=== PATIENT | female | born 1980 | race Caucasian/White ===

== ENCOUNTER 2021-05-15 12:06 | Outpatient (CLI) | payer OTHER, SELFPAY ==
[2021-05-15 13:48] LABS: Basophils Absolute Auto 0.06 K/mm3 (0.00-0.10); Basophils Percent Auto 0.9 % (0.0-1.0); Eosinophils Absolute Auto 0.33 K/mm3 (0.02-0.50); Eosinophils Percent Auto 4.9 % (1.0-6.0); Hematocrit 37.4 % (35.0-49.0); Hemoglobin 12.7 g/dL (12.0-15.0); Immature Granulocyte Absolute 0.04 K/mm3 (0.00-0.00); Immature Granulocyte Percent A 0.6 % (0.0-0.0); Lymphocytes Absolute Auto 2.14 K/mm3 (1.10-4.50); Lymphocytes Percent Auto 31.8 % (18.0-42.0); Mean Corpuscular Hemoglobin 33.2 pg (27.0-31.0); Mean Corpuscular Volume 97.7 fL (78.0-102.0); Mean Platelet Volume 9.4 fl (9.2-11.8); Monocytes Absolute Auto 0.54 K/mm3 (0.10-0.90); Neutrophils Absolute Auto 3.6 K/mm3 (1.7-7.2); Neutrophils Percent Auto 53.8 % (50.0-70.0); Platelet Count Result 292 K/mm3 (150-420); Red Blood Count 3.83 M/mm3 (4.20-5.40); Red Cell Distribution Width 13.2 % (11.6-14.4); White Blood Count 6.7 K/mm3 (4.8-10.8)
[2021-05-15 14:41] LABS: Alanine Aminotransferase 61 U/L (14-59); Albumin Level 4.3 g/dL (3.4-5.0); Alkaline Phosphatase 51 U/L (46-116); Anion Gap 14 mmol/L (8-16); Aspartate Amino Transferase 36 U/L (15-37); Bilirubin,Total 0.4 mg/dL (0.00-1.00); Blood Urea Nitrogen 19 mg/dL (7-18); Calcium 10.5 mg/dL (8.5-10.1); Carbon Dioxide 22 mmol/L (21-32); Chloride 105 mmol/L (98-108); Cholesterol 230 mg/dL (0-200); Estimated Glomerular Filt Rate > 60; Free T4 Free Thyroxine 0.77 ng/dL (0.76-1.46); Glucose 84 mg/dL (70-99); HDL Direct 46 mg/dL (40-60); LDL Cholesterol Calculated 135 mg/dL (<130); Osmolality Calculated 293 mOsm/kg (285-295); Potassium 4.3 mmol/L (3.5-5.1); Sodium 141 mmol/L (136-145); Total Protein 7.6 g/dL (6.4-8.2); Triglycerides 245 mg/dL (0-150)
[2021-05-16 16:25] LABS: Hemoglobin A1C 5.5 % (<5.7)
[2021-05-18 12:03] LABS: Vitamin D 25 Hydroxy 24 ng/mL (30-100)
== END 2021-05-15 12:07 | disposition home or self-care (01) ==
LOC: CHSLAB 12:12
PROVIDERS: PCP Nurse Practitioner Family; Visit Provider Nurse Practitioner Family
DX: Z00.00 Encounter for general adult medical examination without abnormal findings (principal); I10 Essential (primary) hypertension; R63.5 Abnormal weight gain; E78.5 Hyperlipidemia, unspecified; Z79.899 Other long term (current) drug therapy
CPT/HCPCS: 36415; 80053; 80061; 82306; 83036; 84439; 84443; 85025

== ENCOUNTER 2021-10-02 15:50 | Outpatient (CLI) | payer OTHER, SELFPAY ==
[2021-10-02 17:57] LABS: SARS-CoV-2 RNA PCR Positive (Negative)
== END 2021-10-02 15:51 | disposition home or self-care (01) ==
LOC: CHSLAB 15:54
PROVIDERS: PCP Nurse Practitioner Family; Visit Provider Nurse Practitioner Family
DX: U07.1 COVID-19 (principal)
CPT/HCPCS: C9803; U0003; U0005

== ENCOUNTER 2023-02-02 15:24 | Emergency (ER) | payer OTHER, SELFPAY ==
[2023-02-02] VITALS (7 sets, daily range): BP systolic 145–154; BP diastolic 69–97; PULSE 79–105; RESP 16–20; TEMP 35.8–36.3; O2SAT 92–98
--- NOTE | ~2023-02-02 | CT_ITS ---
EXAMINATION: CT abdomen pelvis w con DATE: 02/02/2023 17:34 INDICATION: Periumbilical pain. Nausea and vomiting. TECHNIQUE: Computed tomography (CT) of the abdomen and pelvis was performed with 100 mL Omnipaque 350 intravenous contrast. Automated exposure control and iterative reconstruction technique were employe d. The dose-length product was 1258.32 mGy-cm. COMPARISON: CT abdomen and pelvis 06/15/2017 FINDINGS: The visualized portions of the lung bases demonstrate mild atelectasis. No pleural effusion . The heart size is normal. No pericardial effusion. There is diffuse hepatic steatosis. There are ch anges of cholecystectomy. The spleen, pancreas, adrenal glands, and kidneys are normal. There is an i nfraumbilical ventral hernia containing small bowel. Small bowel is dilated proximal to the hernia. T here is an intrauterine device in expected position. There is prominent fat in the inguinal canals th at may be hernias. There are no pathologically enlarged lymph nodes. There is no free intraperitoneal fluid. There is mild thoracic and lumbar spondylosis. IMPRESSION: 1. Small bowel obstruction secondary to an infraumbilical ventral hernia. Reviewed, dictated and finalized at location E.
--- NOTE | 2023-02-02 15:41 | ED.GENADULT ---
HPI - General Adult General Chief complaint: Abdominal Pain Stated complaint: abdominal pain Time Seen by Provider: 02/02/23 15:33 History of Present Illness HPI narrative: This is a 42-year-old female presenting ED with a chief complaint of umbilical pain. Pain started late last night. It is a sharp pain in her belly button, nonradiating, 10 out 10 intensity and constant. She has never had pain like this before there are no alleviating or exacerbating factors. Patient has had multiple episodes of nausea and vomiting. Her last bowel movement was earlier today. Related Data Home Medications Medication Instructions Recorded Confirmed tizanidine 4 mg tablet 4 mg PO DAILY 02/02/23 02/02/23 Allergies Allergy/AdvReac Type Severity Reaction Status Date / Time No Known Allergies Allergy Verified 02/02/23 15:33 [facility] Past Medical History Medical History HTN (hypertension) Surgical History Surgical History History of cholecystectomy History of tonsillectomy Family History Family History Mother Diabetes mellitus Depression Anxiety Grandparent Cancer Social History Social History Smoking status: Former smoker Alcohol intake: current Substance use: never Living arrangements: with family Occupation/Education: occupation Additional occupation/education comments: [employer] Gender identity (if verbalized by the patient): Female Exam Narrative: APPEARANCE: No apparent distress. Head: atraumatic. EYES: EOMI, NOSE: Atraumatic NECK: Trachea midline RESPIRATORY: No increased rate of breathing CARDIOVASCULAR: RRR, ABDOMINAL: Abdomen is soft nontender no guarding rebound. There is a umbilical hernia that is firm/ tender to touch. No overlying skin changes. MUSCULOSKELETAl: No obvious deformities NEURO: Alert. Moving 4/4 extremities SKIN:: Warm, dry. Normal color PSYCHIATRIC: Normal affect Course Vital Signs Vital signs: Vital Signs Temperature 96.4 F L 02/02/23 15:24 Pulse Rate 105 H 02/02/23 15:24 Respiratory Rate 20 02/02/23 15:24 Blood Pressure 153/87 H 02/02/23 15:24 Pulse Oximetry 96 02/02/23 15:24 Oxygen Delivery Room Air 02/02/23 15:24 Temperature 96.4 F L 02/02/23 15:39 Pulse Rate 79 02/02/23 17:00 Respiratory Rate 16 02/02/23 17:00 Blood Pressure 154/97 H 02/02/23 17:00 Pulse Oximetry 98 02/02/23 17:00 Oxygen Delivery Room Air 02/02/23 17:00 Medical Decision Making MDM Narrative Medical decision making narrative: -Presentation: 42-year-old female presenting with umbilical pain. 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 -External Chart Review: Review of primary care office visits. -Hx from independent Sources: Fiance at bedside -Discussion of Management/Consultants: Milo Ford - Surgery, Naomi ACCOUNTING SYSTEM EXPERT - Hospitalist service -Independent interpretation of studies: WBC is 15. Lactic 2.1. Rest of labs were within normal limits. CT pelvis shows a loop of bowel within an umbilical hernia with evidence of small-bowel obstruction. -Procedures: NG tube inserted by MD. -Interventions: 2 L normal saline, 0.5 mg Dilaudid -> .5 mg dilaudid, 15 mg Toradol, Zosyn 3.75 mg -Shared decision making / Disposition: Patient will be transferred [facility] to be admitted under Dr. Minaya w/ a sx consult to Dr. Ford. Vital Signs Vital Signs: Vital Signs Temperature 96.4 F L 02/02/23 15:24 Pulse Rate 105 H 02/02/23 15:24 Respiratory Rate 20 02/02/23
[2023-02-02] MEDS: SODIUM CHLORIDE 0.9% IV 2,000 ML 999 ML IV CONT (15:56)
[2023-02-02] MEDS: KETOROLAC 15 MG/ML VIAL (*BKC) IV PUSH (15:58)
[2023-02-02] MEDS: HYDROmorphone HCL INJ (*CRX) 2 MG/ML VIAL 0.5 MG IV PUSH ×2 (15:58→18:38)
[2023-02-02] MEDS: ONDANSETRON INJ 4 MG/2 ML VIAL 8 MG IV PUSH (16:01)
[2023-02-02 16:59] LABS: Basophils Absolute Auto 0.06 K/mm3 (0.00-0.10); Basophils Percent Auto 0.4 % (0.0-1.0); Eosinophils Absolute Auto 0.03 K/mm3 (0.02-0.50); Eosinophils Percent Auto 0.2 % (1.0-6.0); Hematocrit 41.3 % (35.0-49.0); Hemoglobin 14.1 g/dL (12.0-15.0); Immature Granulocyte Percent A 0.6 % (0.0-0.0); Lymphocytes Absolute Auto 1.71 K/mm3 (1.10-4.50); Lymphocytes Percent Auto 10.9 % (18.0-42.0); Mean Corpuscular HGB Conc 34.1 g/dL (32.0-36.0); Mean Corpuscular Hemoglobin 33.7 pg (27.0-31.0); Mean Corpuscular Volume 98.6 fL (78.0-102.0); Mean Platelet Volume 9.9 fl (9.2-11.8); Monocytes Absolute Auto 0.99 K/mm3 (0.10-0.90); Monocytes Percent Auto 6.3 % (2.0-11.0); Neutrophils Absolute Auto 12.8 K/mm3 (1.7-7.2); Neutrophils Percent Auto 81.6 % (50.0-70.0); Platelet Count Result 312 K/mm3 (150-420); Red Blood Count 4.19 M/mm3 (4.20-5.40); Red Cell Distribution Width 14.1 % (11.6-14.4); White Blood Count 15.6 K/mm3 (4.8-10.8)
[2023-02-02 17:10] LABS: SPREG INTERNAL CONTROL Positive; Serum Qual hCG Negative
[2023-02-02 17:12] LABS: Partial Thromboplastin Time 27.7 SEC (23.90-30.70); Prothrombin Time 10.9 Seconds (9.50-12.10)
[2023-02-02 17:13] LABS: Alanine Aminotransferase 43 U/L (14-59); Albumin Level 4.1 g/dL (3.4-5.0); Alkaline Phosphatase 59 U/L (46-116); Anion Gap 10 mmol/L (8-16); Aspartate Amino Transferase 22 U/L (15-37); Bilirubin,Total 0.5 mg/dL (0.00-1.00); Blood Urea Nitrogen 10 mg/dL (7-18); Calcium 9.8 mg/dL (8.5-10.1); Carbon Dioxide 27 mmol/L (21-32); Chloride 103 mmol/L (98-108); Estimated Glomerular Filt Rate > 60; Glucose 106 mg/dL (70-99); Lipase 34 U/L (16-77); Osmolality Calculated 289 mOsm/kg (285-295); Potassium 4.1 mmol/L (3.5-5.1); Sodium 140 mmol/L (136-145); Total Protein 7.6 g/dL (6.4-8.2)
[2023-02-02 17:16] LABS: Lactic Acid Reflex 2.1 mmol/L (0.4-2.0)
[2023-02-02] MEDS: LIDO 1%/EPINEPHRINE 1:100,000 20 ML VIAL 10 ML INFILTRATE (18:23)
== END 2023-02-02 18:59 | disposition short-term general hospital (02) ==
PROVIDERS: Emergency Provider Emergency Medicine; PCP Nurse Practitioner Family
DX: K56.609 Unspecified intestinal obstruction, unspecified as to partial versus complete obstruction (principal); K42.0 Umbilical hernia with obstruction, without gangrene; I10 Essential (primary) hypertension; Z87.891 Personal history of nicotine dependence
CPT/HCPCS: 36415; 74177; 80053; 83605; 83690; 84703; 85025; 85610; 85730; 96361; 96365; 96375; 96376; 99285; J1170; J1885; J2405; J2543; J7030; Q9967

== ENCOUNTER 2023-02-02 19:41 | Inpatient (IN) | payer OTHER, SELFPAY ==
--- NOTE | ~2023-02-02 | XR_ITS ---
. EXAMINATION: XR abdomen/kub 1V DATE: 02/03/2023 18:26 INDICATION: Nasogastric tube placement. TECHNIQUE: A semiupright view of the abdomen was obtained. COMPARISON: CT abdomen and pelvis 02/02/2023 FINDINGS: The lower abdomen is excluded. There are dilated loops of small bowel. The nasogastric tube tip is in the stomach. Surgical clips in the right upper quadrant are likely from cholecystectomy. IMPRESSION: 1. Nasogastric tube tip in the stomach. 2. Dilated small bowel, likely postoperative adynamic ileus. Reviewed, dictated and finalized at location A.
--- NOTE | ~2023-02-02 | XR_ITS ---
EXAMINATION: XR abdomen NG/feed tube insert DATE: 02/02/2023 21:14 INDICATION: Nasogastric tube placement. TECHNIQUE: A semiupright view of the abdomen was obtained. COMPARISON: CT abdomen and pelvis 02/02/2023 FINDINGS: The lower abdomen is excluded. Surgical clips in the right upper quadrant are likely from c holecystectomy. The nasogastric tube tip is in the stomach. IMPRESSION: 1. Nasogastric tube tip in the stomach. Reviewed, dictated and finalized at location A.
--- NOTE | ~2023-02-02 | XR_ITS ---
EXAMINATION: XR abdomen NG/feed tube insert DATE: 02/03/2023 15:44 INDICATION: Nasogastric tube placement. TECHNIQUE: An upright view of the abdomen was obtained. COMPARISON: CT abdomen and pelvis 02/02/2023 FINDINGS: The lower abdomen is excluded. Surgical clips in the right upper quadrant are likely from c holecystectomy. There is dilated small bowel in left abdomen. The nasogastric tube tip is in the stom ach with proximal side port in the distal esophagus. IMPRESSION: 1. Nasogastric tube tip in the stomach with proximal side port in the distal esophagus. Advancement 8 cm recommended. 2. Dilated small bowel, likely postoperative adynamic ileus. Reviewed, dictated and finalized at location A. IMPRESSION: 1. Nasogastric tube tip in the stomach with proximal side port in the distal es ophagus. Advancement 8 cm recommended. 2. Dilated small bowel, likely postoperative adynamic ileus.
--- NOTE | 2023-02-02 19:40 | ADMGEN ---
This patient, Malu De La Rosa, was admitted to Medical Room 252-01. Patient/family oriented to hospital policies and general routines including ID bracelet, bed and alarms, visiting hours, pain management, procedures, bathroom and other care routines, personal items, smoking policy, room service/diet, and visiting hours. Information on how to activate the Rapid Response Team has been discussed. Patient/Family are encouraged to report perceived risks to care and to ask questions if they do not understand what they are told or what they should do.
[2023-02-02] MEDS: HYDROmorphone HCL INJ (*CRX) 1 MG/ML SYR 0.5 MG IV PUSH (21:27)
[2023-02-02 23:21] VITALS: BP 164/89; PULSE 91; RESP 18; TEMP 36.3; O2SAT 96
[2023-02-02 23:22] VITALS: BMI 38.5
[2023-02-03] VITALS (13 sets, daily range): BP systolic 129–163; BP diastolic 65–98; PULSE 84–105; RESP 12–16; TEMP 36.4–37.1; O2SAT 91–98
[2023-02-03] MEDS: HYDROmorphone HCL INJ (*CRX) 1 MG/ML SYR IV PUSH ×3 (00:20→06:54)
--- NOTE | 2023-02-03 01:15 | PM.IMHP ---
H&P: HPI History of Present Illness Date/Time: 02/02/23 23:45 Chief Complaint: Incarcerated hernia. Narrative: This is a very pleasant 42-year-old female with hypertension, hyperlipidemia, GERD, sleep apnea, and anxiety who [place] directly [place] [facility] [place] after she was found to have an incarcerated hernia. Yesterday afternoon she developed sudden pain in the periumbilical region that she describes as sharp and shooting in nature. The pain was intense at the outset, rated 10/10, and it has been pretty continuous since that time. The pain does not radiate and she gives no aggravating or alleviating factors. Associated symptoms include severe nausea and several episodes of emesis. Her last normal bowel movement was yesterday a.m.. Workup in the emergency department was significant for a WBC count of 15.6 and lactic acid 2.1. CT of the abdomen and pelvis showed a small-bowel obstruction secondary to an infraumbilical ventral hernia. An NG tube has been inserted for decompression and she has been admitted for pain control and surgery consultation tomorrow. Currently she is feeling better after receiving Dilaudid. Review of Systems Review of Systems: Twelve systems were reviewed and are negative except for as per HPI. [facility] Past Medical History Medical History Anxiety Hypertension Obstructive sleep apnea Surgical History Surgical History History of cholecystectomy History of foot surgery Removal bone spur. History of tonsillectomy Family History Family History Mother Diabetes mellitus Anxiety Depression Arthritis Grandparent Cancer Father Stomach cancer Social History Social History (Updated 02/03/23 @ 23:53 by Naomi Bañuelos PA-C) Social History: Surrogate medical decision maker: Cecilio Martinez significant other. Code status: Full code. Smoking status: Current some day smoker Tobacco type: cigarettes Alcohol intake: current Drinks per week: 8 Substance use: never Lack of Transportation: No Lack of Food: Never True Current Housing: I Have Housing Concerned About Future Housing: No Difficulty Paying Gas/Electric Bills: No Difficulty Paying for Meds: No Currently Unemployed: No Education: Trade/Vocational Certificate Difficulty w/ Childcare or Family Care: No Living arrangements: with family Occupation/Education: occupation Additional occupation/education comments: [employer] Spiritual care concerns: No Meds Home Medications and Allergies Home Medications Medication Instructions Recorded Confirmed Type pravastatin 80 mg tablet 80 mg PO DAILY #90 tabs 09/18/22 02/02/23 Rx amlodipine 5 mg tablet 5 mg PO DAILY #90 tabs 11/13/22 02/02/23 Rx clindamycin phosphate 1 % topical 1 applic topical DAILY 02/02/23 02/02/23 History solution lisinopril 20 1 tablet PO DAILY 02/02/23 02/02/23 History mg-hydrochlorothiazide 25 mg tablet omeprazole 20 mg capsule,delayed 20 mg PO DAILY 02/02/23 02/02/23 History release tizanidine 4 mg tablet 4 mg PO HS 02/02/23 02/02/23 History venlafaxine 150 mg 150 mg PO DAILY 02/02/23 02/02/23 History capsule,extended release 24 hr Allergies Allergy/AdvReac Type Severity Reaction Status Date / Time No Known Allergies Allergy Verified 02/02/23 15:33 Vital Signs Vital Signs - 24 hr 02/02/23 22:52 02/02/23 23:21 Temperature 97.3 F L Pulse Rate 91 Respiratory Rate 18 Blood Pressure 164/89 H Pulse Oximetry 96 Oxygen Delivery Room Air Exam Narrative: General: Moderately ill-appearing female in the semi-Pop position in bed. Weight: 95.5 kg. BMI: 38.5. HEENT: Normocephalic, atraumatic. PERRL, EOMI. Sclera anicteric. Conjuncti
[2023-02-03] MEDS: SODIUM CHLORIDE 0.9% IV 1,000 ML 100 ML IV CONT ×2 (03:35→16:33)
--- NOTE | 2023-02-03 07:07 | PM.CNGS ---
Assessment and Plan Assessment and plan (1) Incarcerated ventral hernia: Code(s): K43.6 - Other and unspecified ventral hernia with obstruction, without gangrene Status: Acute Assessment and Plan: Plan to proceed with urgent repair today. Discussed procedure with patient, risks, and benefits. Length of stay discussed and recovery. All questions answered. She agrees to go ahead. (2) Small bowel obstruction: Code(s): K56.609 - Unspecified intestinal obstruction, unspecified as to partial versus complete obstruction Status: Acute Assessment and Plan: May require bowel resection if incarcerated bowel is infarcted. Explained to patient. (3) Morbid obesity due to excess calories: Code(s): E66.01 - Morbid (severe) obesity due to excess calories Status: Chronic (4) Obstructive sleep apnea: Code(s): G47.33 - Obstructive sleep apnea (adult) (pediatric) Status: Chronic Assessment and Plan: uses CPAP at home (5) Smoker: Code(s): F17.200 - Nicotine dependence, unspecified, uncomplicated Status: Chronic Assessment and Plan: about 5 packs per week. History of Present Illness Consult details Consult date: 02/03/23 Reason for consult: hernia Requesting physician: Hugo Gonzalez MD Narrative: Patient is a 42 yo woman who developed periumbilical pain associated with nausea and vomitting Saturday afternoon, 2 days ago. She came to the ER at [facility] yesterday afternoon. She was noted to have an incarcerated umbilical hernia. CT showed small bowel incarceration and sbo. She had an NG placed and was started on IV antibiotics. She transferred here early this morning and is seen now for incarcerated umbilical hernia with small bowel obstruction. She is morbidly obese and is a smoker. She also has obstructive sleep apnea and hypertension. She has had a previous laparoscopic cholecystectomy. Review of Systems Review of Systems: All systems reviewed & are unremarkable except as noted in HPI and below (HPI and those items noted below) Constitutional: Constitutional: Denies chills and Denies fever(s) Cardiovascular: Cardiovascular: Denies chest pain, Denies diaphoresis, Denies dyspnea and Denies paroxysmal nocturnal dyspnea Respiratory: Respiratory: Denies chest congestion, Denies cough and Denies dyspnea Integumentary/Breasts: Skin/Breast: Denies lesions and Denies rash PMFSH Past Medical History Medical History Anxiety Hypertension Obstructive sleep apnea Surgical History Surgical History History of cholecystectomy History of foot surgery Removal bone spur. History of tonsillectomy Family History Family History Mother Diabetes mellitus Anxiety Depression Arthritis Grandparent Cancer Father Stomach cancer Social History Social History Social History: Surrogate medical decision maker: Code status: Full code. Smoking status: Current some day smoker Tobacco type: cigarettes Alcohol intake: current Drinks per week: 8 Substance use: never Lack of Transportation: No Lack of Food: Never True Current Housing: I Have Housing Concerned About Future Housing: No Difficulty Paying Gas/Electric Bills: No Difficulty Paying for Meds: No Currently Unemployed: No Education: Trade/Vocational Certificate Difficulty w/ Childcare or Family Care: No Living arrangements: with family Occupation/Education: occupation Additional occupation/education comments: [employer] Spiritual care concerns: No Meds Home Medications and Allergies Home Medications Medication Instructions Recorded Confirmed Type pravastatin 80 mg tablet 80 mg PO DAILY #90 tabs 09/18/22 02/02/23 Rx amlodipine 5 mg tablet 5 mg
--- NOTE | 2023-02-03 07:34 | P.PNIM_ITS ---
Progress Note: A&P Assessment and Plan (1) Small bowel obstruction: Code(s): K56.609 - Unspecified intestinal obstruction, unspecified as to partial versus complete obstruction Status: Acute Assessment and Plan: * CT of the abd/pel small bowel obstruction secondary to an infraumbilical ventral hernia * General surgery consulted * Surgical repair planned of today * Pain medications on board * NG in place draining a brown fluid, trend output * Zofran for nausea * NPO for now * Lactic acid 2.1 * IV fluids continued (2) Incarcerated ventral hernia: Code(s): K43.6 - Other and unspecified ventral hernia with obstruction, without gangrene Status: Acute Assessment and Plan: * Plan is as detailed above. (3) Hypertension: Qualifiers: Hypertension type: primary hypertension Qualified Code(s): I10 - Essential (primary) hypertension Code(s): I10 - Essential (primary) hypertension Status: Acute Assessment and Plan: * BP is currently 135/85 * Most likely related to pain and disease process * Lisinopril-HCTZ and amlodipine on hold * Restart home medications when able * Hydralazine PRN with parameters * Trend BP * Adjust therapy as indicated (4) Morbid obesity due to excess calories: Code(s): E66.01 - Morbid (severe) obesity due to excess calories Status: Chronic Assessment and Plan: * BMI is 38.5 * Consider a brewer helper consult when able to eat * Life style changes (5) Obstructive sleep apnea: Code(s): G47.33 - Obstructive sleep apnea (adult) (pediatric) Status: Chronic Assessment and Plan: * Continue home therapy as indicated (6) Tobacco abuse: Code(s): Z72.0 - Tobacco use Status: Acute Assessment and Plan: * Nicotine patch ordered * Smoking cessation education when patient is more able to pay attention Time Spent With Patient Time: 38 minutes Time with patient: Greater than 35 minutes Subjective Date/time seen: 02/03/23 07:34 Interval history: 02/03/23733 patient is lying in bed with significant abdominal pain. She is currently splinting her abdomen with a pillow and does not really let it go. She is having quite a bit of nausea however has not vomited since the NG tube is in place. NG tube has drained out quite a bit of brown bile. She stated that her pain is mostly generalized her abdomen. She denies any current chest pain, shortness a breath, diarrhea, lightheadedness or dizziness. She did state that she has not had a bowel movement recently. 02/02/23? 23:45 This is a very pleasant 42-year-old female with hypertension, hyperlipidemia, GERD, sleep apnea, and anxiety who [place] directly [place] [facility] [place] management after she was found to have an incarcerated hernia. Yesterday afternoon she developed sudden pain in the periumbilical region that she describes as sharp and shooting in nature. The pain was intense at the outset, rated 10/10, and it has been pretty continuous since that time. The pain does not radiate and she gives no aggravating or alleviating factors. Associated symptoms include severe nausea and several episodes of emesis. Her last normal bowel movement was yesterday a.m.. Workup in the emergency d
--- NOTE | 2023-02-03 07:34 | PM.IMPN ---
Progress Note: A&P Assessment and Plan (1) Small bowel obstruction: Code(s): K56.609 - Unspecified intestinal obstruction, unspecified as to partial versus complete obstruction Status: Acute Assessment and Plan: CT of the abd/pel small bowel obstruction secondary to an infraumbilical ventral hernia General surgery consulted Surgical repair planned of today Pain medications on board NG in place draining a brown fluid, trend output Zofran for nausea NPO for now Lactic acid 2.1 IV fluids continued (2) Incarcerated ventral hernia: Code(s): K43.6 - Other and unspecified ventral hernia with obstruction, without gangrene Status: Acute Assessment and Plan: Plan is as detailed above. (3) Hypertension: Qualifiers: Hypertension type: primary hypertension Qualified Code(s): I10 - Essential (primary) hypertension Code(s): I10 - Essential (primary) hypertension Status: Acute Assessment and Plan: BP is currently 135/85 Most likely related to pain and disease process Lisinopril-HCTZ and amlodipine on hold Restart home medications when able Hydralazine PRN with parameters Trend BP Adjust therapy as indicated (4) Morbid obesity due to excess calories: Code(s): E66.01 - Morbid (severe) obesity due to excess calories Status: Chronic Assessment and Plan: BMI is 38.5 Consider a vp sales consult when able to eat Life style changes (5) Obstructive sleep apnea: Code(s): G47.33 - Obstructive sleep apnea (adult) (pediatric) Status: Chronic Assessment and Plan: Continue home therapy as indicated (6) Tobacco abuse: Code(s): Z72.0 - Tobacco use Status: Acute Assessment and Plan: Nicotine patch ordered Smoking cessation education when patient is more able to pay attention Time Spent With Patient Time: 38 minutes Time with patient: Greater than 35 minutes Subjective Date/time seen: 02/03/23 07:34 Interval history: 02/03/23 0734 patient is lying in bed with significant abdominal pain. She is currently splinting her abdomen with a pillow and does not really let it go. She is having quite a bit of nausea however has not vomited since the NG tube is in place. NG tube has drained out quite a bit of brown bile. She stated that her pain is mostly generalized her abdomen. She denies any current chest pain, shortness a breath, diarrhea, lightheadedness or dizziness. She did state that she has not had a bowel movement recently. 02/02/23? 23:45 This is a very pleasant 42-year-old female with hypertension, hyperlipidemia, GERD, sleep apnea, and anxiety who is being directly admitted to the medical floor from the [facility] emergency department for further management after she was found to have an incarcerated hernia. Yesterday afternoon she developed sudden pain in the periumbilical region that she describes as sharp and shooting in nature. The pain was intense at the outset, rated 10/10, and it has been pretty continuous since that time. The pain does not radiate and she gives no aggravating or alleviating factors. Associated symptoms include severe nausea and several episodes of emesis. Her last normal bowel movement was yesterday a.m.. Workup in the emergency department was significant for a WBC count of 15.6 and lactic acid 2.1. CT of the abdomen and pelvis showed a small-bowel obstruction secondary to an infraumbilical ventral hernia. An NG tube has been inserted for decompression and she has been admitted for pain control and surgery consultation tomorrow. Currently she is feeling better after receiving dilaudid. Review of Systems Review of Systems: All systems reviewed & are unremarkable except as noted in HPI and below Exam Narrative: General: well-nourished, ill-appearing 42-y
[2023-02-03] MEDS: PANTOPRAZOLE SODIUM IV 40 MG VIAL IV PUSH (08:01)
[2023-02-03] MEDS: ONDANSETRON INJ 4 MG/2 ML VIAL IV PUSH (08:01)
--- NOTE | 2023-02-03 09:39 | P.PNAN_ITS ---
Anes - Eval Pre Procedure Procedure: Operation Date: 02/03/23 10:00 Proposed Procedures p Ventral Incisional Hernia Repair - Uriel Ford MD Date/Time: 02/03/23 09:39 Surgeon: Logan Preop Diagnosis: Small bowel obstruction Pre Op Diagnosis: Hernia, small bowel obstruction Patient Data Age: 42 Gender: F Height: 1.57 m Weight: 95.5 kg Last Vital Signs Temp 36.5 C 02/03/23 06:00 Pulse 98 02/03/23 06:00 Resp 16 02/03/23 06:00 BP 138/85 02/03/23 06:00 Pulse Ox 91 02/03/23 06:00 O2 Del Method Room Air 02/02/23 22:52 Allergies Allergy/AdvReac Type Severity Reaction Status Date / Time No Known Allergies Allergy Verified 02/02/23 15:33 Home Medications Medication Instructions Recorded Confirmed Type pravastatin 80 mg tablet 80 mg PO DAILY #90 tabs 09/18/22 02/02/23 Rx amlodipine 5 mg tablet 5 mg PO DAILY #90 tabs 11/13/22 02/02/23 Rx clindamycin phosphate 1 % topical 1 applic topical DAILY 02/02/23 02/02/23 History solution lisinopril 20 1 tablet PO DAILY 02/02/23 02/02/23 History mg-hydrochlorothiazide 25 mg tablet omeprazole 20 mg capsule,delayed 20 mg PO DAILY 02/02/23 02/02/23 History release tizanidine 4 mg tablet 4 mg PO HS 02/02/23 02/02/23 History venlafaxine 150 mg 150 mg PO DAILY 02/02/23 02/02/23 History capsule,extended release 24 hr : patient denies HCG: negative Patient hx anesthesia problems: none Family hx anesthesia problems: none Results Review: All pre-operative results and documents have been reviewed as part of the pre- operative evaluation. [facility] Past Medical History Medical History Anxiety Hypertension Obstructive sleep apnea Surgical History Surgical History History of cholecystectomy History of foot surgery Removal bone spur. History of tonsillectomy Family History Family History Mother Diabetes mellitus Anxiety Depression Arthritis Grandparent Cancer Father Stomach cancer Social History Social History Social History: Surrogate medical decision maker: Code status: Full code. Smoking status: Current some day smoker Tobacco type: cigarettes Alcohol intake: current Drinks per week: 8 Substance use: never Lack of Transportation: No Lack of Food: Never True Current Housing: I Have Housing Concerned About Future Housing: No Difficulty Paying Gas/Electric Bills: No Difficulty Paying for Meds: No Currently Unemployed: No Education: Trade/Vocational Certificate Difficulty w/ Childcare or Family Care: No Living arrangements: with family Occupation/Education: occupation Additional occupation/education comments: [employer] Spiritual care concerns: No Exam Day of Procedure 02/03/23 09:39 Patient weight: obese Heart: regular rate and rhythm Lungs: normal air movement Airway: Mallampati scale class II Neurological: alert and oriented
--- NOTE | 2023-02-03 09:46 | WPDHPUPDATE1 ---
History and Physical Update Update Date/Time: 02/03/23 09:46 History and Physical has been reviewed, including an updated exam of the patient. There are NO changes in the patient's condition. Risks, benefits, and alternatives have been discussed and questions answered. Patient agrees to proceed with procedure.
[2023-02-03] MEDS: ceFAZolin 2 GM/D5W 50 ML 2 GM/50 ML BAG IVPB (09:52)
[2023-02-03] MEDS: LACTATED RINGERS 1,000 ML 30 ML IV CONT ×2 (09:52→11:28)
--- NOTE | 2023-02-03 10:05 | WPDANESEPPF ---
Anes - Initial Pre Proc Eval Procedure: Operation Date: 02/03/23 10:00 Proposed Procedures p Ventral Incisional Hernia Repair - Uriel Ford MD Date/Time: 02/03/23 10:05 Surgeon: Severo Minaya MD Pre Op Diagnosis: Hernia, small bowel obstruction Patient Data Age: 42 Gender: F Height: 1.57 m Weight: 95.5 kg Last Vital Signs Temp 36.5 C 02/03/23 06:00 Pulse 98 02/03/23 06:00 Resp 16 02/03/23 06:00 BP 138/85 02/03/23 06:00 Pulse Ox 91 02/03/23 06:00 O2 Del Method Room Air 02/02/23 22:52 Allergies Allergy/AdvReac Type Severity Reaction Status Date / Time No Known Allergies Allergy Verified 02/02/23 15:33 Home Medications Medication Instructions Recorded Confirmed Type pravastatin 80 mg tablet 80 mg PO DAILY #90 tabs 09/18/22 02/02/23 Rx amlodipine 5 mg tablet 5 mg PO DAILY #90 tabs 11/13/22 02/02/23 Rx clindamycin phosphate 1 % topical 1 applic topical DAILY 02/02/23 02/02/23 History solution lisinopril 20 1 tablet PO DAILY 02/02/23 02/02/23 History mg-hydrochlorothiazide 25 mg tablet omeprazole 20 mg capsule,delayed 20 mg PO DAILY 02/02/23 02/02/23 History release tizanidine 4 mg tablet 4 mg PO HS 02/02/23 02/02/23 History venlafaxine 150 mg 150 mg PO DAILY 02/02/23 02/02/23 History capsule,extended release 24 hr : patient denies HCG: negative Patient hx anesthesia problems: none Family hx anesthesia problems: none Results Review: All pre-operative results and documents have been reviewed as part of the pre-operative evaluation. [facility] Past Medical History Medical History Anxiety Hypertension Obstructive sleep apnea Surgical History Surgical History History of cholecystectomy History of foot surgery Removal bone spur. History of tonsillectomy Family History Family History Mother Diabetes mellitus Anxiety Depression Arthritis Grandparent Cancer Father Stomach cancer Social History Social History Social History: Surrogate medical decision maker: Code status: Full code. Smoking status: Current some day smoker Tobacco type: cigarettes Alcohol intake: current Drinks per week: 8 Substance use: never Lack of Transportation: No Lack of Food: Never True Current Housing: I Have Housing Concerned About Future Housing: No Difficulty Paying Gas/Electric Bills: No Difficulty Paying for Meds: No Currently Unemployed: No Education: Trade/Vocational Certificate Difficulty w/ Childcare or Family Care: No Living arrangements: with family Occupation/Education: occupation Additional occupation/education comments: [employer] Spiritual care concerns: No Anes - Eval Final PreProcedure Day of Procedure 02/03/23 10:05 Patient weight: obese Heart: regular rate and rhythm Lungs: decreased breath sounds Airway: Mallampati scale class III Neurological: alert and oriented Last oral intake: >/= 8 hours ASA classification: III Emergent: no Anesthetic plan: proceed Anesthesia type and monitoring: general ETT and standard monitoring Results Review: All pre-operative results and documents have been reviewed as part of the pre-operative evaluation. Informed Consent: The patient's anesthetic plan and its attendant risks and benefits were discussed with the patient/family/POA. Questions were solicited and answers provided to the satisfaction of the patient/family/POA.
[2023-02-03] MEDS: BUPIVACAINE/EPINEPHRINE 0.5% 50 ML VIAL 10 ML INFILTRATE (10:22)
--- NOTE | 2023-02-03 12:32 | W.PM.PROC2 ---
Procedure Note - Detailed Date of Procedure 02/03/23 Pre-op Diagnosis Incarcerated ventral hernia, small bowel obstruction Post-op Diagnosis Other (Incarcerated ventral hernia, small-bowel obstruction with infarction) Procedure Performed Repair 2 cm ventral hernia, small bowel resection with anastomosis Surgeon Uriel Ford MD Licensed Physical Therapist Assistant Kay Mcdonald [facility] Anesthesia General and Local Indications Patient began having abdominal pain at the umbilicus on Saturday. She came to the emergency room in [place] yesterday afternoon. She was found to have a tender umbilical mass. CT scan showed incarcerated ventral hernia just below the umbilicus with small bowel obstruction. She transferred here early this morning. She continues to have pain and tenderness with infraumbilical mass. She is taken to surgery now for repair of the incarcerated hernia and possibly small-bowel resection Findings Patient had about a 2 cm defect but the incarcerated small bowel was already infarcted. About a 6-8 inch segment of small bowel was resected. The infarcted segment was about 4 in in length. Stapled side to side but functional end to end anastomosis was performed. Description of Procedure Patient was taken to surgery and induced into general anesthesia. Kumari catheter was placed. The abdomen was prepped and draped. A midline incision above and below the umbilicus was marked on the skin. 0.5% Marcaine with epinephrine was infiltrated into the area of the anticipated incision. Incision was made dissection was carried down through the subcutaneous. The incarcerated hernia was easily found in the subcutaneous. We opened the subcutaneous down to the fascia the length of the incision. We then dissected the incarcerated hernia sac free from the subcutaneous. We undermined and divided the subcutaneous leading to the fascial defect. It was extremely tight and there was no ability to open the fascia at the site of the hernia. I opened the abdominal wall fascia in the midline just above the umbilicus and then connected this is age in down to the area of the hernia. Once the fascia was divided opening the hernia further, we were able to then manipulate the hernia sac and its contents. The sac was opened and obviously infarcted small bowel was found. The hernia sac itself was excised at its neck circumferentially and sent to pathology as incarcerated hernia sac. I then had to open the incision farther both caudad and cephalad to allow resection of the infarcted small intestine. After this was done, I was able to mobilize the intestine so that resection could be safely performed. The cautery was used to divide the small bowel mesentery in the area of the infarcted small intestine. Cautery was used for hemostasis as well. I then used a TLC 55 stapler and divided the proximal and distal end of the involved small intestine. Small intestine was passed off as a specimen labeled small intestinal infarction. Additional cautery was required to gain hemostasis of the small bowel mesentery. I then placed the 2 small bowel ends in [id number] fashion. The TLC 55 stapler was again used and a [id number] but functional end-to-end anastomosis was created. I then used the linear stapler 60 to close the enteroenterostomy. Cautery was used to achieve hemostasis of the staple lines. A 4-0 silk suture was used to buttress the crotch of the anastomosis. I then used 4-0 silk to close the mesenteric defect. All looked good with healthy bowel under no tension. The involved bowel was then placed back in the abdominal cavity. The omentum was positioned anteriorly over the small intestine. The fascia was closed with bidirectional running 1. PDS suture. The subcu was closed with interrupted 3-0 Vicryl suture. The skin was closed with wide jeanette. The wound was dressed with Xeroform gauze fluffs and Medipore tape. The patient was awakened. The Kumari catheter was removed. Her nasogastric t
--- NOTE | 2023-02-03 12:46 | PC.NURSE ---
Returned from OR per Drew. Report received from Drew.
[2023-02-03] MEDS: MORPHINE SULFATE (*CRX) 4 MG/ML INJ IV PUSH ×2 (14:00→16:58)
[2023-02-03] MEDS: IBUPROFEN IV 800 MG/200 ML 800 MG/200 ML BAG 400 MG IVPB ×2 (14:04→20:35)
[2023-02-03] MEDS: ENOXAPARIN 40 MG/0.4 ML SYRINGE SUB-Q (14:07)
[2023-02-04] VITALS (7 sets, daily range): BP systolic 141–146; BP diastolic 84–96; PULSE 86–99; RESP 12–20; TEMP 36.2–37.1; O2SAT 90–93
[2023-02-04] MEDS: MORPHINE SULFATE (*CRX) 4 MG/ML INJ IV PUSH ×3 (00:36→23:48)
[2023-02-04] MEDS: IBUPROFEN IV 800 MG/200 ML 800 MG/200 ML BAG 400 MG IVPB ×4 (03:24→20:19)
[2023-02-04 05:42] LABS: Basophils Absolute Auto 0.1 K/mm3 (0.0-0.1); Basophils Percent Auto 0.4 % (0.2-1.2); Eosinophils Percent Auto 0.1 % (0-4.4); Hematocrit 41.6 % (37.0-47.0); Hemoglobin 13.8 g/dL (12.0-15.0); Immature Granulocyte Absolute 0.07 K/mm3 (0.00-0.031); Immature Granulocyte Percent A 0.4 % (0-0.5); Lymphocytes Absolute Auto 2.31 K/mm3 (0.9-3.2); Lymphocytes Percent Auto 14.1 % (18.3-44.2); Mean Corpuscular HGB Conc 33.2 g/dl (32-36); Mean Corpuscular Hemoglobin 33.2 pg (26-34); Mean Platelet Volume 9.9 fl (7.4-10.4); Monocytes Absolute Auto 1.2 K/mm3 (0.1-0.6); Monocytes Percent Auto 7.4 % (2.6-8.5); Neutrophils Absolute Auto 12.7 K/mm3 (1.3-6.7); Neutrophils Percent Auto 77.6 % (45.5-73.1); Platelet Count Result 270 k/mm3 (150-375); Red Blood Count 4.16 M/mm3 (4.2-5.4); Red Cell Distribution Width 14.6 % (11.5-14.5); White Blood Count 16.4 K/mm3 (4.5-10.0)
[2023-02-04 05:54] LABS: Alanine Aminotransferase 29 U/L (6-35); Albumin Level 4.1 g/dL (3.5-5.1); Alkaline Phosphatase 56 U/L (38-126); Anion Gap 8 mmol/L (8-16); Aspartate Amino Transferase 25 U/L (14-36); Bilirubin,Total 0.9 mg/dL (0.2-1.3); Blood Urea Nitrogen 9 mg/dL (7-17); Calcium 9.9 mg/dL (8.4-10.2); Carbon Dioxide 26 mmol/L (22-30); Chloride 104 mmol/L (98-107); Estimated CRCL calculation 110 ml/min; Estimated Glomerular Filt Rate > 60; Glucose 114 mg/dL (65-110); Potassium 3.2 mmol/L (3.4-5.0); Sodium 138 mmol/L (137-145)
--- NOTE | 2023-02-04 07:41 | PM.PNGS ---
Progress Note: A&P Assessment and Plan (1) Incarcerated ventral hernia: Code(s): K43.6 - Other and unspecified ventral hernia with obstruction, without gangrene Status: Acute Assessment and Plan: Repair intact. (2) History of resection of small bowel: Code(s): Z90.49 - Acquired absence of other specified parts of digestive tract Status: Acute Assessment and Plan: Await return bowel function. Ambulate today. Continue NPO and NG tube. Continue IV fluids. (3) Obstructive sleep apnea: Code(s): G47.33 - Obstructive sleep apnea (adult) (pediatric) Status: Chronic Assessment and Plan: Restart CPAP per home dose. Subjective Subjective Date/Time Seen: 02/04/23 07:41 Post Op day: 1 Patient reports: pain is less, no flatus, no bowel movement and other (Hurts when coughs otherwise not bad) Exam GI: Inspection: incision (Dressing dry and intact) and obesity GI Palp: Yes Soft to palpation, Yes Tenderness to palpation present (GI) and No Guarding due to palpation present (GI) Auscultation: absent bowel sounds Objective Data Vital Signs Vital Signs: Vital Signs - 24 hr 02/03/23 08:00 02/03/23 11:28 02/03/23 11:30 Temperature 36.7 C Pulse Rate 86 89 Respiratory Rate 13 15 Blood Pressure 154/95 H 163/92 H Pulse Oximetry 97 94 Oxygen Delivery Room Air Simple Face Mask Simple Face Mask Oxygen Flow Rate 10 10 02/03/23 11:45 02/03/23 12:00 02/03/23 12:05 Temperature Pulse Rate 97 95 91 Respiratory Rate 15 14 12 Blood Pressure 161/94 H 149/94 H 154/98 H Pulse Oximetry 94 94 94 Oxygen Delivery Nasal Cannula Nasal Cannula Nasal Cannula Oxygen Flow Rate 4 2 2 02/03/23 12:30 02/03/23 12:45 02/03/23 13:15 Temperature 36.4 C L 36.6 C 36.6 C Pulse Rate 92 84 91 Respiratory Rate 14 14 14 Blood Pressure 156/96 H 161/98 H 150/92 H Pulse Oximetry 93 92 94 Oxygen Delivery Oxygen Flow Rate 02/03/23 14:15 02/03/23 18:41 02/03/23 20:40 Temperature 36.7 C 36.7 C 37.1 C Pulse Rate 105 H 96 99 Respiratory Rate 14 15 16 Blood Pressure 145/84 H 148/65 H 129/89 Pulse Oximetry 96 98 92 Oxygen Delivery Oxygen Flow Rate 02/03/23 20:00 02/04/23 02:41 02/04/23 06:41 Temperature 36.8 C 37.1 C Pulse Rate 99 88 92 Respiratory Rate 16 16 16 Blood Pressure 145/88 H 146/90 H Pulse Oximetry 92 90 91 Oxygen Delivery Room Air Oxygen Flow Rate Intake/Output Intake/Output: Intake & Output 02/01/23 02/02/23 02/03/23 02/04/23 23:59 23:59 23:59 23:59 Intake Total 2030 200 Output Total 1450 150 Balance 580 50 Meds/Results Medications: Active Medications Generic Name Dose Route Start Last Admin Trade Name Freq PRN Reason Stop Dose Admin Acetaminophen 650 mg 02/03/23 12:56 Acetaminophen 650 Mg Suppository RECTAL Q6H PRN Mild Pain (1-3) or Fever Clindamycin Phosphate 1 applic 02/03/23 13:35 02/03/23 14:06 Clindamycin Phos 1% 30 Gm Gel TOPICAL Not Given DAILY [facility] Enoxaparin Sodium 40 mg 02/04/23 09:00 Enoxaparin 40 Mg/0.4 Ml Syringe SUB-Q DAILY [facility] Ibuprofen 800 mg in 200 mls @ 400 mls/hr 02/03/23 14:00 02/04/23 03:55 Caldolor 800 Mg/200 Ml IVPB Infused Q6H [facility] Infusion Potassium Chloride/Dextrose/Sod Cl 1,000 mls @ 80 mls/hr 02/04/23 06:30 Kcl 40 Meq/D5ns IV CONT .[id number] [facility] Miscellaneous Information 1 each 02/03/23 00:01 Clarify Effexor Xr--Label Comments State To Clamp Ng Tube, This Med Cannot Be Given Via Ng XX 03/05/23 00:00 CLARIFY CL[facility]ISA Morphine Sulfate 2 mg 02/03/23 12:56 Morphine Sulfate (*Crx) 2 Mg/Ml Inj IV PUSH Q2H PRN Pain Rated 4-6 Morphine Sulfate 4 mg 02/03/23 12:56 02/04/23 00:36 Morphine Sulfate (*Crx) 4 Mg/Ml Inj IV PUSH 4 mg Q2H PRN Administration Pain Rated 7-10 Nicotine 1 patch 02/04/23 09:00 Nicotine (*Pbkc) 21 Mg Patch TRANSDERM DAILY [facility] Ondansetron HCl 4 mg 02/03/23 12:56
[2023-02-04] MEDS: KCL 40 MEQ/D5/0.9% SOD CHL 1,000 ML 80 ML IV CONT (07:54)
[2023-02-04] MEDS: ENOXAPARIN 40 MG/0.4 ML SYRINGE SUB-Q (07:59)
[2023-02-04] MEDS: CLINDAMYCIN PHOS 1% 30 GM GEL 1 APPLIC TOPICAL (07:59)
[2023-02-04] MEDS: NICOTINE (*PBKC) 21 MG PATCH 1 PATCH TRANSDERM (07:59)
[2023-02-04] MEDS: PANTOPRAZOLE SODIUM IV 40 MG VIAL IV PUSH (07:59)
[2023-02-04] MEDS: VENLAFAXINE HCL 75 MG TABLET PO ×2 (09:14→17:19)
[2023-02-04] MEDS: POTASSIUM CHLORIDE INJ 40 MEQ in SODIUM CHLORIDE 0.9% IV 500 ML 130 MEQ IVPB (09:22)
[2023-02-04] MEDS: hydrALAZINE HCL 20 MG/ML VIAL 10 MG IV PUSH (09:22)
--- NOTE | 2023-02-04 10:23 | PCRCNOTE ---
Patient has WILBERTO and uses a CPAP at home, but patient currently had NG tube in place and does not wish to use a CPAP here.
--- NOTE | 2023-02-04 10:56 | WPDANESPN ---
Anes - Prog Note Post-Op Date/Time: 02/04/23 10:56 Cardiovascular status: normal Respiratory status: normal Airway patency: baseline Mental status: baseline Post-Op hydration status: normal Vital Signs: Last Vital Signs Temp 36.3 C L 02/04/23 10:05 Pulse 99 02/04/23 10:05 Resp 16 02/04/23 10:05 BP 143/88 H 02/04/23 10:05 Pulse Ox 91 02/04/23 10:05 O2 Del Method Room Air 02/03/23 20:00 O2 Flow Rate 2 02/03/23 12:05 Pain Score (VAS): 0 I/O: Intake & Output 02/03/23 02/04/23 02/04/23 23:59 07:59 15:59 Intake Total 1680 200 Output Total 450 150 Balance 1230 50 Laboratory Tests 02/04/23 05:22 02/04/23 05:22 02/04/23 05:22 WBC 16.4 H RBC 4.16 L Hgb 13.8 Hct 41.6 MCV 100.0 MCH 33.2 MCHC 33.2 RDW 14.6 H Plt Count 270 MPV 9.9 Immature Gran % (Auto) 0.4 Neut % (Auto) 77.6 H Lymph % (Auto) 14.1 L [place] % (Auto) 7.4 Eos % (Auto) 0.1 Baso % (Auto) 0.4 Lymph # (Auto) 2.31 [place] # (Auto) 1.2 H Eos # (Auto) 0.0 Baso # (Auto) 0.1 Abs Immat Gran (auto) 0.07 H Absolute Neuts (auto) 12.7 H Absolute Nucleated RBC 0.0 Nucleated RBC % 0.0 Sodium 138 Potassium 3.2 L Chloride 104 Carbon Dioxide 26 Anion Gap 8 BUN 9 Creatinine 0.60 L Estim Creat Clear Calc 110 Estimated GFR > 60 Glucose 114 H Calcium 9.9 Magnesium 2.0 Total Bilirubin 0.9 AST 25 ALT 29 Alkaline Phosphatase 56 Total Protein 7.0 Albumin 4.1 Post-procedural complaints: none Patient Feedback: Patient satisfied with anesthetic care.
--- NOTE | 2023-02-04 11:00 | PM.IMPN ---
Progress Note: A&P Assessment and Plan (1) Small bowel obstruction: Code(s): K56.609 - Unspecified intestinal obstruction, unspecified as to partial versus complete obstruction Status: Acute Assessment and Plan: CT of the abd/pel small bowel obstruction secondary to an infraumbilical ventral hernia General surgery consulted Surgical repair of incarcerated bowel, hernia repair Pain medications on board NG in place draining a brown fluid, trend output Zofran for nausea NPO for now Lactic acid 2.1 IV fluids continued (2) Incarcerated ventral hernia: Code(s): K43.6 - Other and unspecified ventral hernia with obstruction, without gangrene Status: Acute Assessment and Plan: Plan is as detailed above. (3) Hypertension: Qualifiers: Hypertension type: primary hypertension Qualified Code(s): I10 - Essential (primary) hypertension Code(s): I10 - Essential (primary) hypertension Status: Acute Assessment and Plan: BP is currently 146/90 Most likely related to pain and disease process Lisinopril-HCTZ and amlodipine on hold Restart home medications when able Hydralazine PRN with parameters Trend BP Adjust therapy as indicated (4) Morbid obesity due to excess calories: Code(s): E66.01 - Morbid (severe) obesity due to excess calories Status: Chronic Assessment and Plan: BMI is 38.5 Consider a user interface engineer consult when able to eat Life style changes (5) Obstructive sleep apnea: Code(s): G47.33 - Obstructive sleep apnea (adult) (pediatric) Status: Chronic Assessment and Plan: Continue home therapy as indicated (6) Tobacco abuse: Code(s): Z72.0 - Tobacco use Status: Acute Assessment and Plan: Nicotine patch ordered Smoking cessation education when patient is more able to pay attention Plan Switched effexor XR to immediate release while NPO Replaced potassium with IV replacement Time Spent With Patient Time: 48 minutes Time with patient: Greater than 35 minutes Subjective Date/time seen: 02/04/23 1100 Interval history: 02/04/23 1100 Patient is doing well overall. She does have some pain which she rates 7/10. She denies any chest pain, shortness a breath, nausea, vomiting, diarrhea constipation. NG tube is still connected draining a brown fluid. 02/03/23 0734 patient is lying in bed with significant abdominal pain. She is currently splinting her abdomen with a pillow and does not really let it go. She is having quite a bit of nausea however has not vomited since the NG tube is in place. NG tube has drained out quite a bit of brown bile. She stated that her pain is mostly generalized her abdomen. She denies any current chest pain, shortness a breath, diarrhea, lightheadedness or dizziness. She did state that she has not had a bowel movement recently. 02/02/23? 23:45 This is a very pleasant 42-year-old female with hypertension, hyperlipidemia, GERD, sleep apnea, and anxiety who is being directly admitted to the medical floor from the [facility] emergency department for further management after she was found to have an incarcerated hernia. Yesterday afternoon she developed sudden pain in the periumbilical region that she describes as sharp and shooting in nature. The pain was intense at the outset, rated 10/10, and it has been pretty continuous since that time. The pain does not radiate and she gives no aggravating or alleviating factors. Associated symptoms include severe nausea and several episodes of emesis. Her last normal bowel movement was yesterday a.m.. Workup in the emergency department was significant for a WBC count of 15.6 [address] acid 2.1. CT of the abdomen and pelvis showed a small-bowel obstruction secondary to an infraumbilical ventral hernia. An NG tube
--- NOTE | 2023-02-04 11:00 | P.PNIM_ITS ---
Progress Note: A&P Assessment and Plan (1) Small bowel obstruction: Code(s): K56.609 - Unspecified intestinal obstruction, unspecified as to partial versus complete obstruction Status: Acute Assessment and Plan: * CT of the abd/pel small bowel obstruction secondary to an infraumbilical ventral hernia * General surgery consulted * Surgical repair of incarcerated bowel, hernia repair * Pain medications on board * NG in place draining a brown fluid, trend output * Zofran for nausea * NPO for now * Lactic acid 2.1 * IV fluids continued (2) Incarcerated ventral hernia: Code(s): K43.6 - Other and unspecified ventral hernia with obstruction, without gangrene Status: Acute Assessment and Plan: * Plan is as detailed above. (3) Hypertension: Qualifiers: Hypertension type: primary hypertension Qualified Code(s): I10 - Essential (primary) hypertension Code(s): I10 - Essential (primary) hypertension Status: Acute Assessment and Plan: * BP is currently 146/90 * Most likely related to pain and disease process * Lisinopril-HCTZ and amlodipine on hold * Restart home medications when able * Hydralazine PRN with parameters * Trend BP * Adjust therapy as indicated (4) Morbid obesity due to excess calories: Code(s): E66.01 - Morbid (severe) obesity due to excess calories Status: Chronic Assessment and Plan: * BMI is 38.5 * Consider a lacquer pin press operator consult when able to eat * Life style changes (5) Obstructive sleep apnea: Code(s): G47.33 - Obstructive sleep apnea (adult) (pediatric) Status: Chronic Assessment and Plan: * Continue home therapy as indicated (6) Tobacco abuse: Code(s): Z72.0 - Tobacco use Status: Acute Assessment and Plan: * Nicotine patch ordered * Smoking cessation education when patient is more able to pay attention Plan Switched effexor XR to immediate release while NPO Replaced potassium with IV replacement Time Spent With Patient Time: 48 minutes Time with patient: Greater than 35 minutes Subjective Date/time seen: 02/04/23 1100 Interval history: 02/04/23 1100 Patient is doing well overall. She does have some pain which she rates 7/10. She denies any chest pain, shortness a breath, nausea, vomiting, diarrhea constipation. NG tube is still connected draining a brown fluid. 02/03/23 0734 patient is lying in bed with significant abdominal pain. She is currently splinting her abdomen with a pillow and does not really let it go. She is having quite a bit of nausea however has not vomited since the NG tube is in place. NG tube has drained out quite a bit of brown bile. She stated that her pain is mostly generalized her abdomen. She denies any current chest pain, shortness a breath, diarrhea, lightheadedness or dizziness. She did state that she has not had a bowel movement recently. 02/02/23? 23:45 This is a very pleasant 42-year-old female with hypertension, hyperlipidemia, GERD, sleep apnea, and anxiety who is being directly admitted to the medical floor from the [facility] emergency department for further management after she was found to have an incarcerated hernia. Yesterday afternoon she developed sudden pain in the periumbilical region t
[2023-02-04] MEDS: MORPHINE SULFATE (*CRX) 2 MG/ML INJ IV PUSH (15:30)
[2023-02-05] MEDS: IBUPROFEN IV 800 MG/200 ML 800 MG/200 ML BAG 400 MG IVPB (01:19)
[2023-02-05 03:09] VITALS: BP 145/90; PULSE 87; RESP 18; TEMP 36.6; O2SAT 93
[2023-02-05] MEDS: MORPHINE SULFATE (*CRX) 4 MG/ML INJ IV PUSH (03:28)
[2023-02-05] MEDS: KCL 40 MEQ/D5/0.9% SOD CHL 1,000 ML 80 ML IV CONT ×2 (03:29→18:49)
[2023-02-05 05:51] LABS: Hematocrit 36.9 % (37.0-47.0); Hemoglobin 12.3 g/dL (12.0-15.0); Mean Corpuscular HGB Conc 33.3 g/dl (32-36); Mean Corpuscular Hemoglobin 32.9 pg (26-34); Mean Corpuscular Volume 98.7 fl (80-100); Mean Platelet Volume 9.8 fl (7.4-10.4); Platelet Count Result 242 k/mm3 (150-375); Red Blood Count 3.74 M/mm3 (4.2-5.4); Red Cell Distribution Width 14.3 % (11.5-14.5); White Blood Count 12.1 K/mm3 (4.5-10.0)
[2023-02-05 06:11] LABS: Anion Gap 6 mmol/L (8-16); Blood Urea Nitrogen 6 mg/dL (7-17); Calcium 9.1 mg/dL (8.4-10.2); Carbon Dioxide 27 mmol/L (22-30); Chloride 106 mmol/L (98-107); Estimated CRCL calculation 129 ml/min; Estimated Glomerular Filt Rate > 60; Glucose 113 mg/dL (65-110); Potassium 3.4 mmol/L (3.4-5.0); Sodium 139 mmol/L (137-145)
--- NOTE | 2023-02-05 07:10 | PM.PNGS ---
Progress Note: A&P Assessment and Plan (1) History of resection of small bowel: Code(s): Z90.49 - Acquired absence of other specified parts of digestive tract Status: Acute Assessment and Plan: Doing well. Await return bowel function. Continue NPO, NG tube, IV fluids. Recheck labs and exam again tomorrow. (2) Incarcerated ventral hernia: Code(s): K43.6 - Other and unspecified ventral hernia with obstruction, without gangrene Status: Resolved Assessment and Plan: Repair intact Subjective Subjective Date/Time Seen: 02/05/23 07:10 Post Op day: 2 Patient reports: no new complaints, pain is less, no flatus, no bowel movement and afebrile Exam Const: General: comfortable and no acute distress Orientation/consciousness: patient oriented x3 GI: Inspection: distended and incision (Healing well) GI Palp: Yes Soft to palpation, Yes Tenderness to palpation present (GI), No Guarding due to palpation present (GI) and No Rebound tenderness present Auscultation: Hypoactive bowel sounds present Neuro: General: patient oriented x3 and no focal motor deficits Extrem: General: no calf tenderness and no edema Psych: Affect: normal affect Insight: Good insight present (Psych) Judgement: Good judgement present (Psych) Objective Data Vital Signs Vital Signs: Vital Signs - 24 hr 02/04/23 10:05 02/04/23 08:00 02/04/23 14:28 Temperature 36.3 C L 36.2 C L Pulse Rate 99 93 Respiratory Rate 16 14 Blood Pressure 143/88 H 144/95 H Pulse Oximetry 91 93 Oxygen Delivery Room Air 02/04/23 18:50 02/04/23 20:30 02/04/23 23:43 Temperature 36.3 C L 36.7 C 36.6 C Pulse Rate 90 86 87 Respiratory Rate 12 18 20 Blood Pressure 144/92 H 141/96 H 146/84 H Pulse Oximetry 93 93 92 Oxygen Delivery 02/05/23 03:09 Temperature 36.6 C Pulse Rate 87 Respiratory Rate 18 Blood Pressure 145/90 H Pulse Oximetry 93 Oxygen Delivery Intake/Output Intake/Output: Intake & Output 02/02/23 02/03/23 02/04/23 02/05/23 23:59 23:59 23:59 23:59 Intake Total 2030 1800 200 Output Total 1450 650 200 Balance 580 1150 0 Meds/Results Medications: Active Medications Generic Name Dose Route Start Last Admin Trade Name Freq PRN Reason Stop Dose Admin Acetaminophen 650 mg 02/03/23 12:56 Acetaminophen 650 Mg Suppository RECTAL Q6H PRN Mild Pain (1-3) or Fever Clindamycin Phosphate 1 applic 02/03/23 13:35 02/04/23 07:59 Clindamycin Phos 1% 30 Gm Gel TOPICAL 1 applic DAILY CLARISA Administration Enoxaparin Sodium 40 mg 02/04/23 09:00 02/04/23 07:59 Enoxaparin 40 Mg/0.4 Ml Syringe SUB-Q 40 mg DAILY CLARISA Administration Ibuprofen 800 mg in 200 mls @ 400 mls/hr 02/03/23 14:00 02/05/23 01:50 Caldolor 800 Mg/200 Ml IVPB Infused Q6H CLARISA Infusion Potassium Chloride/Dextrose/Sod Cl 1,000 mls @ 80 mls/hr 02/04/23 06:30 02/05/23 03:29 Kcl 40 Meq/D5ns IV CONT 80 mls/hr .[id number] CLARISA Administration Morphine Sulfate 2 mg 02/03/23 12:56 02/04/23 15:30 Morphine Sulfate (*Crx) 2 Mg/Ml Inj IV PUSH 2 mg Q2H PRN Administration Pain Rated 4-6 Morphine Sulfate 4 mg 02/03/23 12:56 02/05/23 03:28 Morphine Sulfate (*Crx) 4 Mg/Ml Inj IV PUSH 4 mg Q2H PRN Administration Pain Rated 7-10 Nicotine 1 patch 02/04/23 09:00 02/04/23 07:59 Nicotine (*Pbkc) 21 Mg Patch TRANSDERM 1 patch DAILY CLARISA Administration Ondansetron HCl 4 mg 02/03/23 12:56 Ondansetron Inj 4 Mg/2 Ml Vial IV PUSH Q4H PRN Nausea And Vomiting Pantoprazole Sodium 40 mg 02/03/23 09:00 02/04/23 07:59 Pantoprazole Sodium Iv 40 Mg Vial IV PUSH 40 mg QAM CLARISA Administration Venlafaxine HCl 75 mg 02/04/23 08:15 02/04/23 17:19 Venlafaxine Hcl 75 Mg Tablet PO 75 mg BIDWM CLARISA Administration Radiology Results: ITS Impressions Abdomen X-Ray 02/03/23 18:52 IMPRESSION: 1. Nasogastric tube tip in the stomach. 2. Dilated
[2023-02-05] MEDS: PANTOPRAZOLE SODIUM IV 40 MG VIAL IV PUSH (09:05)
[2023-02-05] MEDS: VENLAFAXINE HCL 75 MG TABLET PO ×2 (09:05→17:39)
[2023-02-05] MEDS: CLINDAMYCIN PHOS 1% 30 GM GEL 1 APPLIC TOPICAL (09:05)
[2023-02-05] MEDS: ENOXAPARIN 40 MG/0.4 ML SYRINGE SUB-Q (09:06)
[2023-02-05] MEDS: NICOTINE (*PBKC) 21 MG PATCH 1 PATCH TRANSDERM (09:06)
[2023-02-05 10:22] VITALS: BP 148/91; PULSE 88; RESP 18; TEMP 36.4; O2SAT 95
--- NOTE | 2023-02-05 14:30 | P.PNIM_ITS ---
Progress Note: A&P Assessment and Plan (1) Small bowel obstruction: Code(s): K56.609 - Unspecified intestinal obstruction, unspecified as to partial versus complete obstruction Status: Acute Assessment and Plan: * POD2 * CT of the abd/pel small bowel obstruction secondary to an infraumbilical ventral hernia * General surgery consulted * Surgical repair of incarcerated bowel, hernia repair * Pain medications on board * NG in place draining a brown fluid, trend output, possibly out tomorrow * Zofran for nausea * NPO for now * Lactic acid 2.1 * IV fluids continued (2) Incarcerated ventral hernia: Code(s): K43.6 - Other and unspecified ventral hernia with obstruction, without gangrene Status: Resolved Assessment and Plan: * Plan is as detailed above. (3) Hypertension: Qualifiers: Hypertension type: primary hypertension Qualified Code(s): I10 - Essential (primary) hypertension Code(s): I10 - Essential (primary) hypertension Status: Acute Assessment and Plan: * BP is currently 148/91 * Most likely related to pain and disease process * Lisinopril-HCTZ and amlodipine on hold * Restart home medications when able * Hydralazine PRN with parameters * Trend BP * Adjust therapy as indicated (4) Morbid obesity due to excess calories: Code(s): E66.01 - Morbid (severe) obesity due to excess calories Status: Chronic Assessment and Plan: * BMI is 38.5 * Consider a switcher consult when able to eat * Life style changes (5) Obstructive sleep apnea: Code(s): G47.33 - Obstructive sleep apnea (adult) (pediatric) Status: Chronic Assessment and Plan: * Continue home therapy as indicated (6) Tobacco abuse: Code(s): Z72.0 - Tobacco use Status: Acute Assessment and Plan: * Nicotine patch ordered * Smoking cessation education when patient is more able to pay attention Plan Switched effexor XR to immediate release while NPO Replaced potassium with IV replacement Time Spent With Patient Time: 36 minutes Time with patient: Greater than 35 minutes Subjective Date/time seen: 02/05/231429 Interval history: 02/05/231429 Patient is doing well. She stated that she is hungry. She also stated that she has been walking. She also stated that she really wants to get the NG tube removed. She is currently denying any chest pain, shortness of breath, weakness or fatigue. 02/04/23 1100 Patient is doing well overall. She does have some pain which she rates 7/10. She denies any chest pain, shortness a breath, nausea, vomiting, diarrhea constipation. NG tube is still connected draining a brown fluid. 02/03/23 0734 patient is lying in bed with significant abdominal pain. She is currently splinting her abdomen with a pillow and does not really let it go. She is having quite a bit of nausea however has not vomited since the NG tube is in place. NG tube has drained out quite a bit of brown bile. She stated that her pain is mostly generalized her abdomen. She denies any current chest pain, shortness a breath, diarrhea, lightheadedness or dizziness. She did state that she has not had a bowel movement recently. 02/02/23? 23:45 This is a very pleasant 42-year-old female with hyp
--- NOTE | 2023-02-05 14:30 | PM.IMPN ---
Progress Note: A&P Assessment and Plan (1) Small bowel obstruction: Code(s): K56.609 - Unspecified intestinal obstruction, unspecified as to partial versus complete obstruction Status: Acute Assessment and Plan: POD2 CT of the abd/pel small bowel obstruction secondary to an infraumbilical ventral hernia General surgery consulted Surgical repair of incarcerated bowel, hernia repair Pain medications on board NG in place draining a brown fluid, trend output, possibly out tomorrow Zofran for nausea NPO for now Lactic acid 2.1 IV fluids continued (2) Incarcerated ventral hernia: Code(s): K43.6 - Other and unspecified ventral hernia with obstruction, without gangrene Status: Resolved Assessment and Plan: Plan is as detailed above. 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 Life style changes (5) Obstructive sleep apnea: Code(s): G47.33 - Obstructive sleep apnea (adult) (pediatric) Status: Chronic Assessment and Plan: Continue home therapy as indicated (6) Tobacco abuse: Code(s): Z72.0 - Tobacco use Status: Acute Assessment and Plan: Nicotine patch ordered Smoking cessation education when patient is more able to pay attention Plan Switched effexor XR to immediate release while NPO Replaced potassium with IV replacement Time Spent With Patient Time: 36 minutes Time with patient: Greater than 35 minutes Subjective Date/time seen: 02/05/23 1430 Interval history: 02/05/23 1430 Patient is doing well. She stated that she is hungry. She also stated that she has been walking. She also stated that she really wants to get the NG tube removed. She is currently denying any chest pain, shortness of breath, weakness or fatigue. 02/04/23 1100 Patient is doing well overall. She does have some pain which she rates 7/10. She denies any chest pain, shortness a breath, nausea, vomiting, diarrhea constipation. NG tube is still connected draining a brown fluid. 02/03/23 0734 patient is lying in bed with significant abdominal pain. She is currently splinting her abdomen with a pillow and does not really let it go. She is having quite a bit of nausea however has not vomited since the NG tube is in place. NG tube has drained out quite a bit of brown bile. She stated that her pain is mostly generalized her abdomen. She denies any current chest pain, shortness a breath, diarrhea, lightheadedness or dizziness. She did state that she has not had a bowel movement recently. 02/02/23? 23:45 This is a very pleasant 42-year-old female with hypertension, hyperlipidemia, GERD, sleep apnea, and anxiety who is being directly admitted to the medical floor from the [facility] emergency department for further management after she was found to have an incarcerated hernia. Yesterday afternoon she developed sudden pain in the periumbilical region that she describes as sharp and shooting in nature. The pain was intense at the outset, rated 10/10, and it has been pretty continuous since that time. The pain does not radiate and she gives no aggravating or alleviating factors. Associated symptoms include severe n
[2023-02-05] MEDS: MORPHINE SULFATE (*CRX) 2 MG/ML INJ IV PUSH ×2 (15:35→22:00)
[2023-02-05 17:49] VITALS: BP 150/97; PULSE 86; RESP 18; TEMP 36.6; O2SAT 94
[2023-02-05 22:00] VITALS: BP 178/79; PULSE 75; RESP 18; TEMP 36.7; O2SAT 98
[2023-02-06 02:00] VITALS: BP 128/68; PULSE 85; RESP 18; TEMP 36.6; O2SAT 90
[2023-02-06 04:54] VITALS: BP 154/90; PULSE 80; RESP 20; TEMP 36.9; O2SAT 95
--- NOTE | 2023-02-06 06:32 | PC.NURSE ---
COMPUTER DOWN TIME FROM 2149-NOW
[2023-02-06 07:28] LABS: Anion Gap 6 mmol/L (8-16); Blood Urea Nitrogen 6 mg/dL (7-17); Calcium 10.6 mg/dL (8.4-10.2); Carbon Dioxide 29 mmol/L (22-30); Chloride 103 mmol/L (98-107); Estimated CRCL calculation 129 ml/min; Estimated Glomerular Filt Rate > 60; Glucose 100 mg/dL (65-110); Potassium 3.5 mmol/L (3.4-5.0); Sodium 138 mmol/L (137-145)
[2023-02-06] MEDS: ENOXAPARIN 40 MG/0.4 ML SYRINGE SUB-Q (07:50)
[2023-02-06] MEDS: PANTOPRAZOLE SODIUM IV 40 MG VIAL IV PUSH (07:51)
[2023-02-06] MEDS: NICOTINE (*PBKC) 21 MG PATCH 1 PATCH TRANSDERM (07:51)
[2023-02-06] MEDS: VENLAFAXINE HCL 75 MG TABLET PO ×2 (07:51→16:05)
[2023-02-06 09:50] LABS: Hematocrit 43.4 % (37.0-47.0); Hemoglobin 14.2 g/dL (12.0-15.0); Mean Corpuscular HGB Conc 32.7 g/dl (32-36); Mean Corpuscular Hemoglobin 33.2 pg (26-34); Mean Corpuscular Volume 101.4 fl (80-100); Mean Platelet Volume 10.7 fl (7.4-10.4); Platelet Count Result 282 k/mm3 (150-375); Red Blood Count 4.28 M/mm3 (4.2-5.4); Red Cell Distribution Width 14.1 % (11.5-14.5); White Blood Count 10.5 K/mm3 (4.5-10.0)
[2023-02-06 10:00] VITALS: BP 150/95; PULSE 87; RESP 16; TEMP 36.9; O2SAT 97
--- NOTE | 2023-02-06 13:03 | PM.PNGS ---
Progress Note: A&P Assessment and Plan (1) History of resection of small bowel: Code(s): Z90.49 - Acquired absence of other specified parts of digestive tract Status: Acute Assessment and Plan: Bowel function returning. Will discontinue NG tube and try clear liquids. Continue ambulation. Add oral analgesics and other oral medications. Wound healing well postop day 3. (2) Incarcerated ventral hernia: Code(s): K43.6 - Other and unspecified ventral hernia with obstruction, without gangrene Status: Resolved Subjective Subjective Date/Time Seen: 02/06/23 13:03 Post Op day: 3 Patient reports: no new complaints, feels better, flatus, no bowel movement and afebrile Exam Const: General: comfortable and no acute distress Orientation/consciousness: patient oriented x3 GI: Inspection: incision (Dry and healing well) and obesity GI Palp: Yes Soft to palpation, Yes Tenderness to palpation present (GI) (Mild appropriate incisional tenderness), No Guarding due to palpation present (GI) and No Rebound tenderness present Auscultation: normal bowel sounds Neuro: General: patient oriented x3 and no focal motor deficits Extrem: General: no calf tenderness and no edema Psych: Affect: normal affect Insight: Good insight present (Psych) Judgement: Good judgement present (Psych) Objective Data Vital Signs Vital Signs: Vital Signs - 24 hr 02/05/23 17:49 02/05/23 22:00 02/06/23 02:00 Temperature 36.6 C 36.7 C 36.6 C Pulse Rate 86 75 85 Respiratory Rate 18 18 18 Blood Pressure 150/97 H 178/79 H 128/68 Pulse Oximetry 94 98 90 Oxygen Delivery 02/06/23 04:54 02/06/23 08:00 02/06/23 10:00 Temperature 36.9 C 36.9 C Pulse Rate 80 87 Respiratory Rate 20 16 Blood Pressure 154/90 H 150/95 H Pulse Oximetry 95 97 Oxygen Delivery Room Air Intake/Output Intake/Output: Intake & Output 02/03/23 02/04/23 02/05/23 02/06/23 23:59 23:59 23:59 23:59 Intake Total 2030 1800 1200 0 Output Total 4199 828 5852 1080 Balance 580 9021 -085 -5830 Meds/Results Medications: Active Medications Generic Name Dose Route Start Last Admin Trade Name Freq PRN Reason Stop Dose Admin Acetaminophen 500 mg 02/06/23 12:55 Acetaminophen 500 Mg Tablet PO Q6H PRN Mild Pain (1-3) or Fever Hydrocodone Bitart/Acetaminophen 1 tab 02/06/23 12:55 Hydrocodone/Acetaminophen (*Crx) 5-325 Mg Tablet PO Q4H PRN Pain Rated 4-6 Hydrocodone Bitart/Acetaminophen 2 tab 02/06/23 12:55 Hydrocodone/Acetaminophen (*Crx) 5-325 Mg Tablet PO Q4H PRN Pain Rated 7-10 Clindamycin Phosphate 1 applic 02/03/23 13:35 02/06/23 07:50 Clindamycin Phos 1% 30 Gm Gel TOPICAL Not Given DAILY CLARISA Enoxaparin Sodium 40 mg 02/04/23 09:00 02/06/23 07:50 Enoxaparin 40 Mg/0.4 Ml Syringe SUB-Q 40 mg DAILY CLARISA Administration Ibuprofen 800 mg in 200 mls @ 400 mls/hr 02/05/23 07:13 Caldolor 800 Mg/200 Ml IVPB Q6H PRN Mild Pain (1-3) or Fever Potassium Chloride 40 meq/ 1,020 mls @ 80 mls/hr 02/05/23 20:00 02/06/23 07:14 Dextrose/Sodium Chloride IV CONT 80 mls/hr .[id number] CLARISA Administration Morphine Sulfate 2 mg 02/03/23 12:56 02/05/23 22:00 Morphine Sulfate (*Crx) 2 Mg/Ml Inj IV PUSH 2 mg Q2H PRN Administration Pain Rated 4-6 Morphine Sulfate 4 mg 02/03/23 12:56 02/05/23 03:28 Morphine Sulfate (*Crx) 4 Mg/Ml Inj IV PUSH 4 mg Q2H PRN Administration Pain Rated 7-10 Nicotine 1 patch 02/04/23 09:00 02/06/23 07:51 Nicotine (*Pbkc) 21 Mg Patch TRANSDERM 1 patch DAILY CLARISA Administration Ondansetron HCl 4 mg 02/03/23 12:56 Ondansetron Inj 4 Mg/2 Ml Vial IV PUSH Q4H PRN Nausea And Vomiting Pantoprazole Sodium 40 mg 02/07/23 09:00 Pantoprazole 40 Mg Tablet PO QAM CLARISA Venlafaxine HCl 75 mg 02/04/23 08:15 02/06/23 07:51 Venlafaxine Hcl 75 Mg Tablet PO 75 mg BIDWM CLARISA Administr
[2023-02-06 14:00] VITALS: BP 136/88; PULSE 97; RESP 20; TEMP 36.9; O2SAT 95
--- NOTE | 2023-02-06 14:33 | PM.IMPN ---
Progress Note: A&P Assessment and Plan (1) Small bowel obstruction: Code(s): K56.609 - Unspecified intestinal obstruction, unspecified as to partial versus complete obstruction Status: Acute Assessment and Plan: Patient with infarcted small bowel obstruction and incarcerated ventral hernia s/p bowel resection on 02/03/2023 Appreciate general surgery consultation and management Patient has tolerated the procedure well NG tube has been discontinued Advanced to clear liquids Continue analgesics and antiemetics as needed Continue IV fluids until better tolerating p.o. intake (2) Incarcerated ventral hernia: Code(s): K43.6 - Other and unspecified ventral hernia with obstruction, without gangrene Status: Resolved Assessment and Plan: As above (3) Hypertension: Qualifiers: Hypertension type: primary hypertension Qualified Code(s): I10 - Essential (primary) hypertension Code(s): I10 - Essential (primary) hypertension Status: Acute Assessment and Plan: Blood pressure is slightly elevated above target. Last BP 150/95 Likely due to oral antihypertensives on hold while NPO Resume home lisinopril-HCTZ and amlodipine P.r.n. hydralazine as needed with parameters Monitor BP trends (4) Obstructive sleep apnea: Code(s): G47.33 - Obstructive sleep apnea (adult) (pediatric) Status: Chronic Assessment and Plan: CPAP (5) Tobacco abuse: Code(s): Z72.0 - Tobacco use Status: Acute Assessment and Plan: Patient is an occasional tobacco smoker Continue with nicotine patch Continue to educate on smoking cessation Subjective Date/time seen: 02/06/23 14:33 Interval history: Date of service: 02/06/2023 Malu De La Rosa is a 42-year-old female with a history of WILBERTO, hypertension, and anxiety who is seen in follow-up for incarcerated ventral hernia s/p bowel resection. She is feeling well today. Did have a bowel movement this morning of watery dark brown stool. She has no abdominal pain at rest but does have pain rated 5/10 with movement or with laughing. She denies fevers or chills. No urinary symptoms. She is eager to have her NG tube removed. Today she noticed she has been coughing a couple of times and has had a scant amount of sputum production. Review of Systems Review of Systems: Twelve systems were reviewed and are negative except for as per HPI. All systems reviewed & are unremarkable except as noted in HPI and below Exam Narrative: General: Obese, well-appearing 42-year-old female, sitting up in bed, comfortable, NARD Neuro: awake, alert and oriented x4, speech clear, no focal neuro deficits noted HEENMT: normocephalic, atraumatic, EOMI, sclerae anicteric Respiratory: clear to auscultation bilaterally, nonlabored breathing Cardio: regular rate, regular rhythm with S1-S2 Abdomen: nondistended, normoactive bowel sounds, soft, slightly tender to palpation, midline incision Extremities: no edema, erythema, or tenderness to palpation, DP pulses 2+ bilaterally Skin: no rashes or lesions, warm and dry Psych: appropriate mood and affect, judgment and insight intact Objective Data Vital Signs Vital Signs: Vital Signs - 24 hr 02/05/23 17:49 02/05/23 22:00 02/06/23 02:00 Temperature 97.8 F 98.1 F 97.8 F Pulse Rate 86 75 85 Respiratory Rate 18 18 18 Blood Pressure 150/97 H 178/79 H 128/68 Pulse Oximetry 94 98 90 Oxygen Delivery 02/06/23 04:54 02/06/23 08:00 02/06/23 10:00 Temperature 98.4 F 98.4 F Pulse Rate 80 87 Respiratory Rate 20 16 Blood Pressure 154/90 H 150/95 H Pulse Oximetry 95 97 Oxygen Delivery Room Air Intake/Output Intake/Output: Intake & Output 02/03/23 02/04/23 02/05/23 02/06/23 23:59 23:59 23:59 23:59 Intake Total 2030 1800 1200 0 Output Total 4180 822 9930 1080 Balance 580 7887 -400 -7019 Meds/Results Medications: Active Me
[2023-02-06] MEDS: hydroCHLOROthiazide 25 MG TABLET PO (16:05)
[2023-02-06] MEDS: lisinopriL 20 MG TABLET PO (16:05)
[2023-02-06] MEDS: HYDROcodone/acetaminophen (*CRX) 5-325 MG TABLET 1 TAB PO (18:45)
[2023-02-06 21:04] VITALS: BP 135/84; PULSE 87; RESP 17; TEMP 36.7; O2SAT 99
[2023-02-07 05:04] VITALS: BP 139/88; PULSE 77; RESP 18; TEMP 36.4; O2SAT 95
[2023-02-07 06:03] LABS: Hematocrit 39.3 % (37.0-47.0); Hemoglobin 13.4 g/dL (12.0-15.0); Mean Corpuscular HGB Conc 34.1 g/dl (32-36); Mean Corpuscular Hemoglobin 33.8 pg (26-34); Mean Platelet Volume 9.5 fl (7.4-10.4); Platelet Count Result 287 k/mm3 (150-375); Red Blood Count 3.97 M/mm3 (4.2-5.4); White Blood Count 11.3 K/mm3 (4.5-10.0)
[2023-02-07 06:11] LABS: Anion Gap 9 mmol/L (8-16); Blood Urea Nitrogen 7 mg/dL (7-17); Calcium 10.4 mg/dL (8.4-10.2); Carbon Dioxide 26 mmol/L (22-30); Chloride 103 mmol/L (98-107); Estimated CRCL calculation 110 ml/min; Estimated Glomerular Filt Rate > 60; Glucose 122 mg/dL (65-110); Potassium 3.7 mmol/L (3.4-5.0); Sodium 138 mmol/L (137-145)
--- NOTE | 2023-02-07 07:50 | PM.PNGS ---
Progress Note: A&P Assessment and Plan (1) Incarcerated ventral hernia: Code(s): K43.6 - Other and unspecified ventral hernia with obstruction, without gangrene Status: Resolved Assessment and Plan: tolerating liquids well and had several bowel movements yesterday. Advanced to regular diet. Wound is healing well. Okay to discharge from my perspective if hospitalist agrees. Discharge orders and instructions placed. She will see me in the office on Saturday02/11/2023 for further postoperative care. (2) History of resection of small bowel: Code(s): Z90.49 - Acquired absence of other specified parts of digestive tract Status: Acute Assessment and Plan: Due to incarcerated incisional hernia with strangulation and infarction of small intestine. (3) Smoker: Code(s): F17.200 - Nicotine dependence, unspecified, uncomplicated Status: Chronic Assessment and Plan: Increases surgical risks. Subjective Subjective Date/Time Seen: 02/07/23 07:50 Post Op day: 4 Patient reports: no new complaints, feels better, pain is less, tolerating liquids well, bowel movement and afebrile Exam GI: Inspection: incision ( dry and healing well) GI Palp: Yes Soft to palpation and Yes Tenderness to palpation present (GI) Auscultation: normal bowel sounds Objective Data Vital Signs Vital Signs: Vital Signs - 24 hr 02/06/23 08:00 02/06/23 10:00 02/06/23 14:00 Temperature 36.9 C 36.9 C Pulse Rate 87 97 Respiratory Rate 16 20 Blood Pressure 150/95 H 136/88 Pulse Oximetry 97 95 Oxygen Delivery Room Air 02/06/23 21:04 02/06/23 20:00 02/07/23 05:04 Temperature 36.7 C 36.4 C Pulse Rate 87 77 Respiratory Rate 17 18 Blood Pressure 135/84 139/88 Pulse Oximetry 99 95 Oxygen Delivery Room Air Intake/Output Intake/Output: Intake & Output 02/04/23 02/05/23 02/06/23 02/07/23 23:59 23:59 23:59 23:59 Intake Total 1800 1200 1400 250 Output Total 650 1600 1180 600 Balance 1150 -400 220 -350 Meds/Results Medications: Active Medications Generic Name Dose Route Start Last Admin Trade Name Freq PRN Reason Stop Dose Admin Acetaminophen 500 mg 02/06/23 12:55 Acetaminophen 500 Mg Tablet PO Q6H PRN Mild Pain (1-3) or Fever Hydrocodone Bitart/Acetaminophen 1 tab 02/06/23 12:55 02/06/23 18:45 Hydrocodone/Acetaminophen (*Crx) 5-325 Mg Tablet PO 1 tab Q4H PRN Administration Pain Rated 4-6 Hydrocodone Bitart/Acetaminophen 2 tab 02/06/23 12:55 Hydrocodone/Acetaminophen (*Crx) 5-325 Mg Tablet PO Q4H PRN Pain Rated 7-10 Amlodipine Besylate 5 mg 02/07/23 09:00 Amlodipine Besylate 5 Mg Tablet PO DAILY CLARISA Clindamycin Phosphate 1 applic 02/03/23 13:35 02/06/23 07:50 Clindamycin Phos 1% 30 Gm Gel TOPICAL Not Given DAILY CLARISA Enoxaparin Sodium 40 mg 02/04/23 09:00 02/06/23 07:50 Enoxaparin 40 Mg/0.4 Ml Syringe SUB-Q 40 mg DAILY CLARISA Administration Hydrochlorothiazide 25 mg 02/06/23 14:45 02/06/23 16:05 Hydrochlorothiazide 25 Mg Tablet PO 03/08/23 14:44 25 mg DAILY CLARISA Administration Ibuprofen 800 mg in 200 mls @ 400 mls/hr 02/05/23 07:13 Caldolor 800 Mg/200 Ml IVPB Q6H PRN Mild Pain (1-3) or Fever Lisinopril 20 mg 02/06/23 14:55 02/06/23 16:05 Lisinopril 20 Mg Tablet PO 20 mg DAILY CLARISA Administration Morphine Sulfate 2 mg 02/03/23 12:56 02/05/23 22:00 Morphine Sulfate (*Crx) 2 Mg/Ml Inj IV PUSH 2 mg Q2H PRN Administration Pain Rated 4-6 Morphine Sulfate 4 mg 02/03/23 12:56 02/05/23 03:28 Morphine Sulfate (*Crx) 4 Mg/Ml Inj IV PUSH 4 mg Q2H PRN Administration Pain Rated 7-10 Nicotine 1 patch 02/04/23 09:00 02/06/23 07:51 Nicotine (*Pbkc) 21 Mg Patch TRANSDERM 1 patch DAILY CLARISA Administration Ondansetron HCl 4 mg 02/03/23 12:56 Ondansetron Inj 4 Mg/2 Ml Vial IV PUSH Q4H PRN Nausea And Vomiting
[2023-02-07] MEDS: amLODIPine BESYLATE 5 MG TABLET PO (08:06)
[2023-02-07] MEDS: VENLAFAXINE HCL 75 MG TABLET PO (08:06)
[2023-02-07] MEDS: hydroCHLOROthiazide 25 MG TABLET PO (08:07)
[2023-02-07] MEDS: lisinopriL 20 MG TABLET PO (08:07)
[2023-02-07] MEDS: NICOTINE (*PBKC) 21 MG PATCH 1 PATCH TRANSDERM (08:07)
[2023-02-07] MEDS: ENOXAPARIN 40 MG/0.4 ML SYRINGE SUB-Q (08:07)
[2023-02-07] MEDS: PANTOPRAZOLE 40 MG TABLET PO (08:08)
--- NOTE | 2023-02-07 12:14 | PM.DS ---
DS: Admitting Diagnosis Discharge Date 02/07/2023 Admitting Diagnosis Bowel obstruction and incarcerated hernia DS: Discharge Diagnosis Discharge Diagnosis (1) Small bowel obstruction: Code(s): K56.609 - Unspecified intestinal obstruction, unspecified as to partial versus complete obstruction Status: Acute Assessment and Plan: Patient with infarcted small bowel obstruction and incarcerated ventral hernia s/p bowel resection on 02/03/2023 Appreciate general surgery consultation and management Patient tolerated the procedure well NG tube was discontinued on 02/06 and diet was advanced. Pt able to tolerate solid diet which will be continued Follow up with Dr. Ford on 02/11/23 (2) Incarcerated ventral hernia: Code(s): K43.6 - Other and unspecified ventral hernia with obstruction, without gangrene Status: Resolved Assessment and Plan: As above (3) Hypertension: Qualifiers: Hypertension type: primary hypertension Qualified Code(s): I10 - Essential (primary) hypertension Code(s): I10 - Essential (primary) hypertension Status: Acute Assessment and Plan: Blood pressure slightly elevated while oral antihypertensives were held BP remained stable after resuming home lisinopril-HCTZ and amlodipine (4) Obstructive sleep apnea: Code(s): G47.33 - Obstructive sleep apnea (adult) (pediatric) Status: Chronic Assessment and Plan: CPAP (5) Tobacco abuse: Code(s): Z72.0 - Tobacco use Status: Acute Assessment and Plan: Patient is an occasional tobacco smoker Patient was educated on smoking cessation Nicotine patch provided during admission DS: Summary Hospital Course Hospital Course: Date of admission: 02/02/2023 Date of discharge: 02/07/2023 Malu De La Rosa is a 42-year-old female with a history of WILBERTO, hypertension, and anxiety who presented to the emergency department on 02/02/2023 with complaints of abdominal pain rated 10/10. On presentation to the ED, she was mildly tachycardic additional vital signs are stable, she was afebrile, WBC 15.6, lactic acid 2.1, additional laboratory workup unremarkable, and CT of the abdomen/pelvis showed small bowel obstruction secondary to infraumbilical ventral hernia. She was admitted to the hospitalist service for further evaluation and management was seen in consultation by General surgery. She underwent bowel resection on 02/03/2023 and tolerated the procedure well. Bowel function returned and she was eventually able to advance to a regular diet. She will follow-up with General surgery as an outpatient. Overall patient was feeling much improved and was determined to no longer require inpatient care. She was discharged in hemodynamically stable condition on 02/07/2023. Time Spent with Patient Time attestation: Total time spent providing and/or coordinating discharge services: 38 minute Time spent: Greater than 30 minutes Exam Narrative: General: Obese, well-appearing 42-year-old female, sitting up in bed, comfortable, NARD Neuro: awake, alert and oriented x4, speech clear, no focal neuro deficits noted HEENMT: normocephalic, atraumatic, EOMI, sclerae anicteric Respiratory: clear to auscultation bilaterally, nonlabored breathing Cardio: regular rate, regular rhythm with S1-S2 Abdomen: nondistended, normoactive bowel sounds, soft, nontender to palpation, midline incision Extremities: no edema, erythema, or tenderness to palpation, DP pulses 2+ bilaterally Skin: no rashes or lesions, warm and dry Psych: appropriate mood and affect, judgment and insight intact DS: Data Data Completed and Pending Completed studies during hospitalization: Pending at discharge 02/03/23 10:49 Surgical [PTH] Routine Surgical [PTH] Routine Labs on day of discharge: Labs from last 24 hours 02/07/23 05:50 WBC 11.3 H RBC 3.97 L Hgb 13.4 Hct 39.3 MCV 99
[2023-02-07] MEDS: HYDROcodone/acetaminophen (*CRX) 5-325 MG TABLET 1 TAB PO (13:14)
== END 2023-02-07 14:05 | disposition home or self-care (01) | DRG 331 ==
PROVIDERS: Nurse Practitioner; Surgery; Admitting Provider Internal Medicine; PCP Nurse Practitioner Family; Visit Provider Physician Assistant
PROC: 0WQF0ZZ Repair Abdominal Wall, Open Approach (ICD-10-PCS; principal; 2023-02-03 10:00)
DX: K43.6 Other and unspecified ventral hernia with obstruction, without gangrene (principal); G47.33 Obstructive sleep apnea (adult) (pediatric); I10 Essential (primary) hypertension; F41.9 Anxiety disorder, unspecified; E78.5 Hyperlipidemia, unspecified; K21.9 Gastro-esophageal reflux disease without esophagitis; F17.210 Nicotine dependence, cigarettes, uncomplicated; E66.01 Morbid (severe) obesity due to excess calories; Z68.38 Body mass index [BMI] 38.0-38.9, adult; Z90.49 Acquired absence of other specified parts of digestive tract
CPT/HCPCS: 36415; 74018; 80048; 80053; 83735; 85025; 85027; 88302; 88307; A9270; C9113; J0330; J0360; J0690; J1100; J1170; J1650; J1741; J2250; J2270; J2405; J2704; J2710; J3010; J3480; J7030; J7040; J7042; J7120

== ENCOUNTER 2024-02-05 11:33 | Outpatient (CLI) | payer OTHER, SELFPAY ==
[2024-02-05 11:52] LABS: White Blood Count 9.5 K/mm3 (4.8-10.8)
[2024-02-05 11:53] LABS: Basophils Absolute Auto 0.05 K/mm3 (0.00-0.10); Basophils Percent Auto 0.5 % (0.0-1.0); Eosinophils Absolute Auto 0.32 K/mm3 (0.02-0.50); Eosinophils Percent Auto 3.4 % (1.0-6.0); Hematocrit 40.6 % (35.0-49.0); Hemoglobin 13.7 g/dL (12.0-15.0); Immature Granulocyte Absolute 0.04 K/mm3 (0.00-0.00); Immature Granulocyte Percent A 0.4 % (0.0-0.0); Lymphocytes Absolute Auto 2.22 K/mm3 (1.10-4.50); Lymphocytes Percent Auto 23.4 % (18.0-42.0); Mean Corpuscular HGB Conc 33.7 g/dL (32-36); Mean Corpuscular Hemoglobin 32.4 pg (27.0-31.0); Mean Platelet Volume 9.6 fl (9.2-11.8); Monocytes Absolute Auto 0.55 K/mm3 (0.10-0.90); Monocytes Percent Auto 5.8 % (2.0-11.0); Neutrophils Absolute Auto 6.29 K/mm3 (1.70-7.20); Neutrophils Percent Auto 66.5 % (50.0-70.0); Platelet Count Result 277 K/mm3 (150-420); Red Blood Count 4.23 M/mm3 (4.20-5.40); Red Cell Distribution Width 14.1 % (11.6-14.4)
[2024-02-05 12:11] LABS: Hemoglobin A1C 5.2 % (<5.7)
[2024-02-05 12:20] LABS: Alanine Aminotransferase 32 U/L (14-59); Albumin Level 4.2 g/dL (3.4-5.0); Alkaline Phosphatase 53 U/L (46-116); Anion Gap 12 mmol/L (4-12); Aspartate Amino Transferase 16 U/L (15-37); Bilirubin,Total 0.4 mg/dL (0.00-1.00); Blood Urea Nitrogen 14 mg/dL (7-18); Calcium 11.6 mg/dL (8.5-10.1); Carbon Dioxide 26 mmol/L (21-32); Chloride 104 mmol/L (98-108); Cholesterol 173 mg/dL (0-200); Estimated Glomerular Filt Rate > 60; Glucose 100 mg/dL (70-99); HDL Direct 45 mg/dL (40-60); LDL Cholesterol Calculated 91 mg/dL (<130); Osmolality Calculated 294 mOsm/kg (285-295); Sodium 142 mmol/L (136-145); Total Protein 7.2 g/dL (6.4-8.2); Triglycerides 186 mg/dL (0-150)
[2024-02-07 03:29] LABS: Vitamin D 25 Hydroxy 51 ng/mL (30-100)
== END 2024-02-05 11:34 | disposition home or self-care (01) ==
LOC: CHSLAB 11:37
PROVIDERS: PCP Nurse Practitioner Family; Visit Provider Nurse Practitioner Family
DX: E11.9 Type 2 diabetes mellitus without complications (principal); Z79.899 Other long term (current) drug therapy; Z13.6 Encounter for screening for cardiovascular disorders; E78.5 Hyperlipidemia, unspecified; I10 Essential (primary) hypertension; Z68.35 Body mass index [BMI] 35.0-35.9, adult
CPT/HCPCS: 36415; 80053; 80061; 82306; 83036; 85025

== ENCOUNTER 2024-02-06 07:10 | Outpatient (CLI) | payer OTHER, SELFPAY ==
--- NOTE | ~2024-02-06 | MM_ITS ---
EXAMINATION: MM screening jeanette BI w zack HISTORY: Screening mammogram TECHNIQUE: Craniocaudal and mediolateral oblique 3-D tomosynthesis images were obtained and synthetic 2-D images were generated. CAD analysis was submitted and interpreted. COMPARISON: 01/29/2019 diagnostic right mammogram 12/29/2018 bilateral screening mammogram BREAST PARENCHYMAL COMPOSITION: There are scattered areas of fibroglandular density. FINDINGS: Stable fibroglandular asymmetry. There is no evidence of suspicious mass, calcification, or architectural distortion to suggest malignancy in either breast. There has been no suspicious interv al change. IMPRESSION: 1. No mammographic evidence of malignancy. 2. Recommend routine screening mammography in one year. BI-RADS Category 1: Negative Reviewed, dictated and finalized at location B.
--- NOTE | ~2024-02-06 | XR_ITS ---
EXAMINATION: XR chest 2V DATE: 02/06/2024 07:29 INDICATION: Mid chest pain. TECHNIQUE: Frontal and lateral views of the chest were obtained. COMPARISON: Chest single view 03/14/2021, CT abdomen 02/06/2024 FINDINGS: There is no pneumonia, pleural effusion, or pneumothorax. The heart size is normal. IMPRESSION: 1. No acute cardiopulmonary disease. Reviewed, dictated and finalized at location A.
--- NOTE | ~2024-02-06 | CT_ITS ---
CT of the Abdomen: Indication: Swelling, hernia Technique: 2.5 mm axial scans were obtained through the abdomen following intravenous administration of 100 cc of Omnipaque 350. Dose reduction technique was used on this scan by utilizing automated ex posure control and iterative reconstruction technique. The dose-length product (DLP) was 774.91 mGy-c m. COMPARISON: 02/02/2023 Findings: Scans through the lung bases are unremarkable. The liver, spleen, pancreas, adrenals and kidneys are within normal limits. Cholecystectomy clips are present. No evidence of aortic aneurysm. No lymphadenopathy. There is a large, wide necked umbilical hernia containing multiple small bowel loops and mesenteric f at. No bowel obstruction or bowel thickening evident. No ascites. Complex septated right ovarian cyst is partially imaged measuring 3.3 cm in diameter. Impression: Wide necked umbilical hernia containing multiple small bowel loops. Underlying diastases of the rectu s abdominis muscles. No bowel obstruction or bowel wall thickening evident. Septated/complex 3.3 cm right ovarian cyst. Reviewed, dictated and finalized at location M. Impression: Wide necked umbilical hernia containing multiple small bowel loops. Underlying diastases of the rectus abdominis muscles. No bowel obstruction or bowel wall t hickening evident. Septated/complex 3.3 cm right ovarian cyst.
--- NOTE | 2024-02-06 07:17 | ECG_ITS ---
SEE SCANNED COPY FOR CONFIRMED REPORT MTDD
== END 2024-02-06 07:11 | disposition home or self-care (01) ==
PROVIDERS: Absent Provider Nurse Practitioner Obstetrics & Gynecology; PCP Nurse Practitioner Family; Visit Provider Nurse Practitioner Family
DX: Z00.00 Encounter for general adult medical examination without abnormal findings (principal); R19.00 Intra-abdominal and pelvic swelling, mass and lump, unspecified site; R10.9 Unspecified abdominal pain; E78.5 Hyperlipidemia, unspecified; R07.89 Other chest pain; Z12.31 Encounter for screening mammogram for malignant neoplasm of breast; K42.9 Umbilical hernia without obstruction or gangrene; N83.291 Other ovarian cyst, right side
CPT/HCPCS: 71046; 74160; 77063; 77067; 93005; Q9967

== ENCOUNTER 2024-11-23 15:09 | Outpatient (CLI) | payer OTHER, SELFPAY ==
[2024-11-23 15:59] LABS: Strep Group A RT-PCR NOT DETECTED (Negative)
[2024-11-23 16:08] LABS: SARS-CoV-2 RNA PCR Negative (Negative)
[2024-11-23 16:10] LABS: Influenza A QL RT-PCR Negative (Negative); Influenza B QL RT-PCR Negative (Negative); RSV RNA, RT-PCR Negative (Negative)
--- OUTSIDE RECORDS SUMMARY | 2024-11-23 17:45 | XMS_ITS | Clinical Summary ---
Author Organization [facility] Address [address] [place] [address] Phone Care Team Providers Care Gate Services Supervisor Name Role Phone LuzmariaAura mujica Giancarlo RUVALCABA Primary Care Provider Social History Tobacco Use Types Packs/Day Years Used Date Smoking Tobacco: Never Assessed Comments No Sex and Gender Information Value Date Recorded Sex Assigned at Not on file Legal Sex Female 3:40 PM CDT Gender Identity Not on file Sexual Orientation Not on file Plan of Treatment Health Maintenance Due Date Last Done Comments Hepatitis C Virus (HCV) Screening 1978 TdaP Immunization 1978 Hepatitis B Immunization (1 of 3 - 19+ 3-dose series) 1997 Pap Smear 1999 Cervical Cancer Screening (CCS) 2008 HPV/Cotest 2008 Colonoscopy 2023 Colorectal Cancer Screening 2023 Influenza Immunization (#1) 2024 SARS-COV-2 Immunization (2023- season) 2024 05/12/2021, 04/21/2021 Respiratory Syncytial Virus (RSV) Immunization (Adult) (1 - 1-dose 75+ series) 2053 Discussion re Starting/Frequency of Mammograms Completed 01/29/2019, 12/29/2018 Meningococcal Immunization (ACWY) Aged Out No longer eligible b ased on patient's age to complete this topic Pneumococcal Immunization Combined Aged Out No longer eligible b ased on patient's age to complete this topic Rotavirus Immunization Aged Out No lo nger eligible based on patient's age to complete this topic Procedures Procedure Name Priority Date/Time Associated Diagnosis Comments KESHIA MORA RIGHT UNILATERAL DIGITAL W CAD W JUAN Routine 01/29/2019 8:58 AM CDT Other abnormal and inconclusive findings on diagnostic imaging of breast from Last 3 Months or Most Recently Relevant to Health Maintenance Results * KESHIA DONALDG RIGHT UNILATERAL DIGITAL W CAD W JUAN (01/29/2019 8:58 AM CDT) Anatomical Region Laterality Modality breast Right Mammography 01/29/2019 8:09 AM CDT Narrative 01/29/2019 10:45 AM CDT - KESHIA DIAG RIGHT UNILATERAL DIGITAL W CAD W JUAN UNILATERAL RIGHT DIGITAL DIAGNOSTIC MAMMOGRAM 3D/2D WITH CAD WITH LATEROMEDIAL MEDIOLATERAL OBLIQUE CRANIOCAUDAL SPOT COMPRESSION: 01/29/2019 The study was acquired using digital technology and interpreted from soft copy. Current study was also evaluated with Sumbola version 7.2. CLINICAL: Patient returns for additional imaging over a suspected mass in the right breast at 3 o'clock anterior depth. COMPARISONS: Comparison is made to exam dated: 12/29/2018 [facility]. BREAST TISSUE:There are scattered fibroglandular densities in the right breast. FINDINGS: No persistent mass is seen in the right breast on the additional views. This is likely overlapping tissue. No significant masses, calcifications, or other findings are seen in the breast. IMPRESSION: BI-RAD 1 NEGATIVE There is no mammographic evidence of malignancy. A 1 year screening mammogram is recommended. The patient has been or will be contacted. Electronically signed by: Tracy Aponte M.D. ll/:01/29/2019 08:54:16 Videogame Tester: Jojo ALEJO(R)(M), [facility] letter sent: Normal Exam Reading location: [place] BI-RADS: 1 Negative Procedure Note Tracy Aponte MD - 01/29/2019 - KESHIA DIAG RIGHT UNILATERAL DIGITAL W CAD W JUAN UNILATERAL RIGHT DIGITAL DIAGNOSTIC MAMMOGRAM 3D/2D WITH CAD WITH LATEROMEDIAL MEDIOLATERAL OBLIQUE CRANIOCAUDAL SPOT COMPRESSION: 01/29/2019 The study was acquired using digital technology and interpreted from soft copy. Current study was also evaluated with ICAD version 7.2. CLINICAL: Patient returns for additional imaging over a suspected mass in the right breast at 3 o'clock anterior depth. COMPARISONS: Comparison is made to exam dated: 12/29/2018 [facility]. BREAST TISSUE:There are scattered fibroglandular densities in the right breast. FINDINGS: No persistent mass is seen in the right breast on the additional views. This is likely overlapping tissue. No significant masses, calcifications, or other findings are seen in the breast. IMPRESSION: BI-RAD 1 NEGATIVE There is no mammographic evidence of malignancy. A 1 year screening mammogram is recommended. The patient has been or will be contacted. Electronically signed by: Tracy Aponte M.D. ll/:01/29/2019 08:54:16 Videogame Tester: Jojo RODRIGUEZ)(Xuan), [facility] letter sent: Normal Exam Reading location: [place] BI-RADS: 1 Negative Francisco Marrero [facility] Final Resul t from Last 3 Months or Most Recently Relevant to Health Maintenance Insurance [facility] Care Teams Gate Services Supervisor Relationship Specialty Start Date End Date Aura Brown APRN [address] [place] [address] [place] [address] PCP - General Family Medicine 12/17/18
--- OUTSIDE RECORDS SUMMARY | 2024-11-23 17:45 | XMS_ITS | Referral Summary ---
Author Organization [facility] Address [address] [place] [address] Care Team Providers Care Rotogravure Press Operator Name Role Phone Marilyn Castañeda NP Primary Care Provider [phone] Allergies No known active allergies Medications amLODIPine (NORVASC) 5 mg tabletIndications: hypertension Take 1 tablet (5 mg total) by mouth every morning 4 Active atorvastatin (LIPITOR) 80 mg tabletIndications: hyperlipidemia Take 1 tablet (80 mg total) by mouth nightly 4 Active lisinopril-hydroCH LOROthiazide (ZESTORETIC) 20-25 mg per tabletIndications: hypertension Take 1 tablet by mouth every morning 4 Active sertraline (ZOLOFT) 50 mg tabletIndications: Anxiety with Depression Take 1 tablet (50 mg total) by mouth nightly 4 Active TiZANidine (ZANAFLEX) 6 mg capsuleIndications :RLS Take 1 capsule (6 mg total) by mouth nightly 4 Active cyclobenzaprine (FLEXERIL) 10 mg tablet Take 1 tablet (10 mg total) by mouth 2 (two) times a day as needed for muscle spasms Active omeprazole (PriLOSEC) 40 mg capsuleIndications :Treatment of Non-Bleeding Gastric Disorder Take 1 capsule (40 mg total) by mouth every morning Active semaglutide (Ozempic) 0.25 mg or 0.5 mg (2 mg/3 mL) pen injector injectionIndicatio ns:weight loss Inject under the skin once a week Active cholecalciferol (VITAMIN D-3) 5,000 unit capsuleIndications :Vitamin D Deficiency Take 1 capsule (5,000 Units total) by mouth every morning Active ascorbic acid (vitamin C) 1,000 mg tabletIndications: Vitamin C Deficiency Take 1 tablet (1,000 mg total) by mouth every morning Active biotin 10,000 mcg capsuleIndications :SUPPLEMENT Take 1 capsule (10,000 mcg total) by mouth every morning Active multivitamin tabletIndications: Vitamin Deficiency Prevention Take 1 tablet by mouth every morning Active aspirin 81 mg enteric coated tabletIndications: prevention of thrombosis Take 1 tablet (81 mg total) by mouth every morning Active aspirin/acetaminop hen/caffeine (EXCEDRIN MIGRAINE ORAL)Indications:H EADACHES Take 2 tablets by mouth as needed Active acetaminophen 500 mg capsule Take 2 capsules (1,000 mg total) by mouth 3 (three) times a day 40 tablet 4 Active lidocaine (ASPERCREME) 4 % adhesive patch,medicated Place 2 patches on the skin daily 20 patch 4 Active senna (SENOKOT) 8.6 mg tablet Take 1 tablet by mouth 2 (two) times a day 60 tablet 4 05/20/20 25 Active polyethylene glycol (MIRALAX) 17 gram/dose bulk powder Take 17 g by mouth daily 238 g 4 Active methocarbamoL (ROBAXIN) 750 mg tabletIndications: Acute postoperative pain Take 1 tablet (750 mg total) by mouth 4 (four) times a day 30 tablet 4 Active oxyCODONE (ROXICODONE) 5 mg immediate release tabletIndications: Pain Take 1 tablet (5 mg total) by mouth every 6 (six) hours as needed for pain for up to 10 doses 10 tablet 4 Active Active Problems Problem Noted Date Diagnosed Date Hypokalemia 05/20/2024 Assessment & Plan (05/20/2024 11:16 AM CDT): 05/20 K 3.3, PO repletion provided --- f/u with PCP within 1 week of discharge for re-evaluation Acute post-operative pain 05/17/2024 Assessment & Plan (05/20/2024 11:13 AM CDT): Pain management following Pain well controlled with Epidural and DIRECTOR SECURITY MANAGEMENT 05/19 pain controlled, transition DIRECTOR SECURITY MANAGEMENT to multimodal oral regimen, Pain team to remove epidural 05/20 pain well controlled with multimodal oral analgesia regimen, 5mg oxycodone x3 doses in prior 24h to discharge; patient discharged wth #25 tabs 5mg oxycodone for PRN use Hyperlipidemia 05/14/2024 Assessment & Plan (05/20/2024 11:16 AM CDT): Holding home pravastatin 05/19 resumed --- f/u with previously established provider for ongoing management Class 2 obesity due to exces s calories with body mass index (BMI) of 37.0 to 37.9 in adult 05/14/2024 Assessment & Plan (05/14/2024 9:25 AM CDT): BMI 37.68 Encounter for medication review 05/14/2024 Assessment & Plan (05/14/2024 9:26 AM CDT): Home medications reviewed and updated in ADMISSIONS tab Discharge planning issues 05/14/2024 Assessment & Plan (05/20/2024 11:14 AM CDT): 05/14 POD 1 VHR, ARBF 05/16: POD 2. ARBF. 05/18 barrier to discharge epidural/director of financial aid, NPO 05/19 barrier to discharge: epidural, PO tolerance; ADD tomorrow 05/20 Patient is medically stable for discharge, SW/CM updated. Depression 05/14/2024 Assessment & Plan (05/20/2024 11:14 AM CDT): Holding home sertraline 05/19 resumed --- f/u with previously established provider for ongoing management Ventral hernia without obstruction or gangrene 0 03/24/2024 Assessment & Plan (05/20/2024 11:18 AM CDT): 05/13 (Bochicchio) Open repair incarcerated VHR, excision of denuded abdominal wall with synthetic mesh, scar removal, umbilical plasty; PARRISH x2 05/14 NPO/NGT, IVF; ARBF, midline incision closed with dermabond, PARRISH x2 #1 48ml, #2 125ml - serosanguinous 05/15 NPO, NG 650ml/24h, PARRISH #1 85ml/24h, PARRISH #2 145ml/24h, ARBF 05/16: POD 2. NPO. NGT OP 275ml; bilious. PARRISH drain OP: RLQ 31ml/24hr, LLQ 105ml/24hr; SS. AFVSS. Labs unremarkable. Midline closed with dermabond. Pain controlled with epidural/DIRECTOR SECURITY MANAGEMENT. Plan: ARBF. UOOB. IS. 05/17: POD3 NGT 550ml/24h; PARRISH #1 39ml/24h, PARRISH #2 92ml/24h; ARBF 05/18 POD4 NGT 200ml/24h, PARRISH #1 19ml/24h, PARRISH#2 42ml/24h small amount flatus, NG clamp trial, with plan for NG tube removal and clear liquid diet when able 05/19 POD5: AFVSS, tolerating CLD, +flatus - advance diet, R PARRISH 23cc/24h serosang, L PARRISH 39cc/24h serosang, midline dermabond intact, abd soft 05/20 POD6: AFVSS, tolerating regular diet, BM overnight, R PARRISH 14cc/24h serosang, L PARRISH 4cc/24h serosang, midline dermabond intact, abd soft --- f/u Dr. Del Cid outpatient as scheduled --- drain teaching and wound management education provided by this author on discharge CULTURES: none ANTIBIOTICS: periop ancef 05/13 PATHOLOGY: none Anxiety HTN (hypertension) Assessment & Plan (05/20/2024 11:30 AM CDT): Holding home oral antihypertensive medication; amlodipine, lisinopril/HCTZ 05/16: HDS. Continue to hold home PO medication while NPO. CTM and start IV medication as indicated. 05/18: SBP 141-166, holding home oral antihypertensives, PRN labetalol for BP >170 systolic 05/19 home norvasc resumed 05/20 HDS --- resume lisinopril-hctz tomorrow if SBP >140, if <140 will continue to hold and f/u with PCP by Saturday for repeat evaluation and lab work --- f/u with previously established provider for ongoing management Social History Tobacco Use Types Packs/Day Years Used Date Smoking Tobacco: Former Cigarettes Q uit: 03/21/2024 Smokeless Tobacco: Never Tobacco Cessation:Counseling Given: Not Answered AUDIT-C Answer Date Recorded Q1: How often do you have a drink containing alc ohol? 2-3 times a week 05/13/2024 Q2: How many drinks containi ng alcohol do you have on a typical day when you are drinking? 1 or 2 05/13/2024 Q3: How often do you have si x or more drinks on one occasion? Never 05/13/2024 Personal Safety Answer Date Recorded Have you ever been in or are you currently in a harmful physical or emotional relationship or is someone making you feel afraid or unsafe? Denies 05/13/2024 Comments Unknown Sex and Gender Information Value Date Recorded Sex Assigned at Not on file Legal Sex Female 9:16 PM OPERATIONS SYSTEMS SPECIALIST Gender Identity Female 03/21/2024 7:26 PM CDT Sexual Orientation Straight 03/21/2024 7: 26 PM CDT Last Filed Vital Signs Vital Sign Reading Time Taken Comments Blood Pressure 111/76 07/10/2024 10:03 AM CDT Pulse 84 07/10/2024 10:03 AM CDT Temperature 36.7 C (98 F) 07/10/2024 10:03 AM CDT Respiratory Rate 16 07/10/2024 10:03 AM CDT Oxygen Saturation 98% 07/10/2024 10:03 AM CDT Inhaled Oxygen Concentration - - Weight 95.4 kg (210 lb 6.4 oz) 07/10/2024 10:03 AM CDT Height 157.5 cm (5' 2 ) 07/10/2024 10:03 AM CDT Body Mass Index 38.48 07/10/2024 10:03 AM CDT Plan of Treatment Not on file Medical Devices Implanted Type Area Precision Printing Worker Device Identifier Shelf Expiration Date Model / Serial / Lot [employer]/C R Bard [id number] Monofilament Soft Lightweight Low Profile Square - [id number] Implanted:Qty: 1 on 05/13/2024 by Rolando Del Cid MD at [facility] Mesh N/A: Abdomen [employer]/C R Bard [id number] 08/27/2028 [id number] / / [id number] Insurance [facility] CHOICE PLUS [facility] CHOICE PLUS Advance Directives For more information, please contact: [phone] * Full Code (Latest Code Status on File) Date Activated Date Inactivated Comments 05/13/2024 3:42 PM 05/20/2024 5:48 PM Care Teams Rotogravure Press Operator Relationship Specialty Start Date End Date Marilyn Castañeda NP [address] [place] [address] PCP - General Nurse Practitioner 02/12/24
--- OUTSIDE RECORDS SUMMARY | 2024-11-23 17:45 | XMS_ITS | Clinical Summary ---
Author Organization [facility] Address [address] [place] [address] Care Team Providers Care Converter Operator Name Role Phone Marilyn Castañeda NP Primary Care Provider [phone] Allergies No known active allergies Medications amLODIPine [...] following Pain well controlled with Epidural and CAR CLEANING SUPERVISOR 05/19 pain controlled, transition CAR CLEANING SUPERVISOR to multimodal oral regimen, Pain team to [...] POD 2. ARBF. 05/18 barrier to discharge epidural/commercial lending relationship manager, NPO 05/19 barrier to discharge: epidural, PO [...] Midline closed with dermabond. Pain controlled with epidural/CAR CLEANING SUPERVISOR. Plan: ARBF. UOOB. IS. 05/17: POD3 NGT [...] with previously established provider for ongoing management Surgical History Surgery Date Site/Laterality Comments VENTRAL HERNIA REPAIR 02/03/2023 CHOLECYSTECTOMY over 20 years ago FOOT SURGERY Left bone spur TONSILLECTOMY Medical History Medical History Date Comments Anxiety HTN (hypertension) WILBERTO (obstructive sleep apnea) Family History Medical History Relation Name Comments Anesthesia problems Neg Hx Social History Tobacco Use Types Packs/Day Years [...] on file Legal Sex Female 9:16 PM RADIO REPAIRMAN Gender Identity Female 03/21/2024 7:26 PM CDT Sexual Orientation Straight 03/21/2024 7: 26 PM CDT Obstetrics History Last Filed Vital Signs Vital Sign Reading [...] 07/10/2024 10:03 AM CDT Plan of Treatment Health Maintenance Due Date Last Done Comments Cervical Cancer Screening 1978 Colon Cancer Screening-Colonoscopy 1978 Depression Screening 1978 Hepatitis C Screening 1978 DTaP/Tdap/Td Vaccine (1 - Tdap) 1989 Hepatitis B Screening 1996 Regular Well Visit/Exam 18-64 1996 Breast Cancer Screening-Mammogram 12/30/2019 12/29/2018 Covid-19 Vaccine (3 2023-2 5 season) 2024 05/12/2021, 04/21/2021 Influenza Vaccine (#1) 2024 HPV Vaccines Aged Out No longer eligi ble based on patient's age to complete this topic Pneumococcal vaccine <65 Aged Out No longer eligible based on patient's age to complete this topic Medical Devices Implanted Type Area Keg Varnisher Device Identifier Shelf Expiration Date Model / Serial / Lot [employer]/C R Bard [id number] Monofilament Soft Lightweight Low Profile Square - [id number] Implanted:Qty: 1 on 05/13/2024 by Rolando Del Cid MD at [facility] Mesh N/A: Abdomen [employer]/C R Bard [id number] 08/27/2028 [id number] / / [id number] Insurance [facility] CHOICE PLUS [facility] HMO/PPO Address: [facility] [address] [place] [address] [facility] CHOICE PLUS [facility] HMO/PPO Address: [place] [address] Advance Directives For more information, please contact: [phone] * Full Code (Latest Code Status on File) Date Activated Date Inactivated Comments 05/13/2024 3:42 PM 05/20/2024 5:48 PM Care Teams Converter Operator Relationship Specialty Start Date End Date Marilyn Castañeda NP [address] [place] [address] PCP - General Nurse Practitioner 02/12/24
--- OUTSIDE RECORDS SUMMARY | 2024-11-23 17:45 | XMS_ITS | Data Portability ---
Author Organization [place] Tiff BISWAS Address [address] [facility] [place] [address] Care Team Providers Care Internal Medicine Doctor Name Role Phone ALFONZO ZAMARRIPA Primary Care Provider Assessment Encounter Date Assessment Date Assessment LastModified by Organization Details LastModified Time 03/02/2020 03/02/2020 telemed RTC 3mo Blood tests in 1-2mo Not available 03/02/2020 17:04:53 Plan of Treatment Reminders Order Date Submit Date Provider Last Modified By Organization Details Last Modified Time Details Appointments None recorded. Lab lipid panel, serum 2020 021 OSSEO LABDIANA, [address] [place] [address], [facility] [address], [place], [address], 1 03:01:48 CMP, serum or plasma 2020 021 CHRIS [facility]OBERT, [facility], [facility] [address], [place], [address], 1 03:01:49 vitamin D, 25-hydrox y, total, serum 2020 021 OSSEO LABROBERT, [address] [place] [address], [address], [place], [address], 1 03:01:49 CBC w/ auto diff 2020 021 CHRIS LESLIE, [address] [place] [address], [address], [place], [address], 1 03:01:49 TSH, ultra-sen sitive, serum 2020 CHRIS [facility], [address], [address], [place], [address], 1 03:01:49 HbA1c (hemoglob in A1c), blood 2020 CHRIS [facility], [address] [address], [address], [place], [address], 1 03:01:49 microalbu min/creat inine, mass ratio, urine 2020 CHRIS [facility], [address] [place], [place] [address]j[address], [address], [place], [address], 1 03:01:50 CBC w/ auto diff 2019 CHRIS [facility], [address] [place], [place] [address]j[address], [address], [place], [address], 1 03:03:56 CMP, serum or plasma 2019 021 CHRIS [facility], [facility] [address], [address], [place], [address], 1 03:03:57 lipid panel, serum 2019 CHRIS [facility], [address] [facility] [address], [address], [place], [address], 1 03:03:57 TSH, ultra-sen sitive, serum 2019 CHRIS [facility], [address] [place], [place] [address]j[address], [address], [place], [address], 1 03:03:58 HbA1c (hemoglob in A1c), blood 2019 021 CHRIS PATELSDRP, [facility] [address] [address], [address], [place], [address], 1 03:03:58 microalbu min/creat inine, mass ratio, urine 2019 021 [facility], [address] [place], [place] [address]j[address], [address], [place], [address], 1 03:03:58 ferritin, serum or plasma 2019 021 [facility], [address] [place], [place] [address]j[address], [address], [place], [address], 1 03:03:55 magnesium , serum or plasma 2019 021 [facility], [address] [place] [address], [address], [place], [address], 1 03:03:55 vitamin D, 25-hydrox y, total, serum 2019 021 [facility], [address] [place], [place] [address]j[address], [address], [place], [address], 1 03:03:56 SARS CoV 2 RNA (COVID-19 ), QL, 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-PCR, respirato ry specimen - [place] 2:30 2019 020 [facility] ([facility]), [address], [place], [address], 0 17:21:36 vitamin D, 25-hydrox y, total, serum 2019 020 [facility], [address] [place] [address] [address], [address], [place], [address], 0 17:05:06 CBC w/ auto diff 2019 020 CHRIS [facility], [address] [facility], [address], [place], [address], 0 17:05:06 CMP, serum or plasma 2019 020 [facility], [address] [place] [address], [address], [place], [address], 0 13:07:06 lipid panel, serum 2019 020 [facility], [address] [place] [address], [address], [place], [address], 0 13:07:19 HbA1c (hemoglob in A1c), blood 2019 020 [facility], [address] [place] [address], [address], [place], [address], 0 13:07:29 TSH, ultra-sen sitive, serum 2019 020 CHRIS [facility], [address] [place] [address], [address], [place], [address], 0 17:05:06 microalbu min/creat inine, mass ratio, urine 2019 020 CHRIS [facility], [address] [place] [address], [address], [place], [address], 0 17:05:05 Referral sleep medicine referral 2020 021 weston Todd Rai, [address] [facility] , [address], [place], [address], 1 08:42:47 Procedures None recorded. Surgeries None recorded. Imaging None recorded. Medication Orders topiramat e 50 mg tablet 2020 021 CHRIS [facility], [facility] [address] [place], [place], [id number], 1 16:09:06 famotidin e 20 mg tablet 2020 021 [facility], [facility] [address] [place], [place], [id number], 1 16:09:06 sertralin e 25 mg tablet 2019 INTERFACE [facility] [place] [address] [place], [place], [id number], 0 14:30:09 tizanidin e 4 mg tablet 2019 INTERFACE [facility], [facility] [address] [place], [id number], 0 14:30:03 famotidin e 20 mg tablet 2019 020 INTERFACE [facility], [facility] [address] [place], [id number], 0 14:30:07 Flonase Allergy Relief 50 mcg/actua tion nasal spray,arabella pension 2018 019 alicia [facility], [address] [place] [address], [address], 0 15:45:36 amoxicill in 875 mg-potass ium clavulana te 125 mg tablet 2018 019 [facility], [address] [place], [address], 0 14:00:59 Patient TargetsNo targets recorded. Patient Instructions Encounter Date Encounter Id Patient Instructions Last Modified By Organization Details Last Modified Time 08/18/2019 [id number] Acute Sinusitis: Care Instructions Not available 08/18/2019 15:32:16 learning about h igh blood pressure Not available 08/19/2019 09:10:16 03/02/2020 [id number] deciding about u sing medicines to quit smoking Not available 03/02/2020 17:04:57 Quitting Tobacco : Care Instructions Not available 03/02/2020 17:04:57 gastroesophageal reflux disease (GERD): care instructions Not available 03/02/2020 17:04:58 learning about h igh blood pressure Not available 03/02/2020 17:04:58 high cholesterol : care instructions Not available 03/02/2020 17:04:57 09/06/2020 [id number] allergies: care instructions ssuthan Not available 09/06/2020 14:29:30 managing your allergies: care instructions ssuthan Not available 09/06/2020 14:29:29 deciding about u sing medicines to quit smoking ssuthan Not available 09/06/2020 14:29:30 Quitting Tobacco : Care Instructions ssuthan Not available 09/06/2020 14:29:30 learning about h igh blood pressure ssuthan Not available 09/06/2020 14:29:30 01/16/2021 [id number] When You Want to Lose Weight: Care Instructions ssuthan Not available 01/16/2021 16:06:58 deciding about u sing medicines to quit smoking ssuthan Not available 01/16/2021 16:06:58 Quitting Tobacco : Care Instructions ssuthan Not available 01/16/2021 16:06:59 sleep apnea: car e instructions ssuthan Not available 01/16/2021 16:06:58 learning about h igh blood pressure ssuthan Not available 01/16/2021 16:06:58 Reason for Referral Sleep Medicine Referral for Obstructive sleep apnea syndrome Referring Physician: Alfonzo Zamarripa, Internal Medicine, Encounter Date: 01/16/2021 Results Created Date Observation Date Name Description Value Unit Range Abnormal Flag Note LastModifiedBy Organization Detail LastModifiedTime 06/28/20 20 06/28/2020 SARS CoV 2 RNA (COVI D-19) , QL, 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 A negat curry resul t does not precl ude the possi bilit y of 2019- nCoV infec tion since the adequ acy of sampl e colle ction and/o r low viral burde n may resul t in the prese nce of viral nucle ic acids level s below the kana tical sensi tivit y of this test metho d. Not Available [facility] (Lab) [address] [facility], [place], [address], 06/29/2020 17:21:36 06/28/20 20 06/28/2020 SARS CoV 2 RNA (COVI D-19) , QL, 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-P CR, respi rator y speci men covidcom2 Posit curry resul ts are indic ative of the prese nce of SARS- CoV-2 RNA and do not rule out bacte rial infec tion or co-in fecti on with other virus es. Not Available [facility] (Lab) [address] [facility], [place], [address], 06/29/2020 17:21:36 06/28/20 20 06/28/2020 SARS CoV 2 RNA (COVI D-19) , QL, 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-P CR, respi rator y speci men covidcom3 Test resul ts shoul d be used along with other clini cherelle obser vatio ns, patie nt histo ry, epide miolo gical infor matio n and labor atory data in frank wong the diagn osis. Not Available [facility] (Lab) [address] [place], [address], 06/29/2020 17:21:36 06/28/20 20 06/28/2020 SARS CoV 2 RNA (COVI D-19) , QL, 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-P CR, respi rator y speci men covidcom4 This test has recei kirk FDA Emerg ency Use Autho rizat ion and has been verif ied by [facility] [employer] atory . This test is only autho rized for the durat ion of the decla ratio n and the circu mstan kelle that exist to justi fy the autho rizat ion of the emerg ency use of in vitro diagn ostic tests for the detec tion of SARS- CoV-2 virus and/o r diagn osis of COVID -19 infec tion under secti on 564 (b) (1) of the Act. 11 U.S.C . 360bb b-3 (b) (1), unles s the autho rizat ion is termi nated or revok ed soone r. Not Available [facility] (Lab) [address] [facility], [place], [address], 06/29/2020 17:21:36 06/28/20 20 06/28/2020 SARS CoV 2 RNA (COVI D-19) , QL, 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-P CR, respi rator y speci men covidcom5 [facility] [employer] atory is certi fied under CLIA- 88 as quali fied to perfo rm high compl exity testi ng. This testi ng was perfo rmed in the [facility] [employer] [place] [address] (CLIA Licen se #[id number], CAP #[id number], AU-ID #[id number]). Not Available [facility] (Lab) [address] [facility], [place], [address], 06/29/2020 17:21:36 06/28/20 20 06/28/2020 SARS CoV 2 RNA (COVI D-19) , QL, 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-P CR, respi rator y speci men covidcom6 Facts heet for healt hcare provi ders: https ://ww w.fda .gov/ media /1362 56/do wnloa d Facts heet for patie nts: https ://ww w.fda .gov/ media /1362 57/do wnloa d Not Available [facility] (Lab) [address], [place], [address], 06/29/2020 17:21:36 Result Notes None recorded. Problems Name Problem SNOMED Code Status Onset Date Resolution Date Notes Provider Name and Address Organization Details Recorded Time Episodic chronic alcoholis m 979181467 Active 2019 Alfonzo Zamarripa MD Attn: Accounting, [address] [place], [place], [address] [place] [address], [place] - [facility] 0 14:27:24 Gastroeso phageal reflux disease without esophagit is 026050328 Active 2019 Alfonzo Zamarripa MD Attn: Accounting, [address] [place], [address] [place] [address], [place] [facility] 0 14:27:29 Cramp in lower leg associate d with rest 984152631 Active 2019 Alfonzo Zamarripa MD Attn: Accounting, [address] [place], [address] [place] [address], [place] [facility] 0 14:27:31 Allergic rhinitis 63247994 Active 2019 Alfonzo Zamarripa MD Attn: Accounting, [address] [place], [address] [place] [address], [place] [facility] 0 14:27:32 Mixed anxiety and depressiv e disorder 866869864 Active 2019 Alfonzo Zamarripa MD Attn: Accounting, [address] [place], [address] [place] [address], [place] [facility] 0 14:27:34 Hyperchol esterolem ia 07993831 Active 2019 Alfonzo Zamarripa MD Attn: Accounting, [address] [facility], [place], [place], [address] [place] [address], [facility] - SI 0 14:27:35 Obesity 395077743 Active 2020 Alfonzo Zamarripa MD Attn: Accounting, [address] [facility], [place], [place], [address] [place] [address], [facility] - SI 1 16:05:40 Obstructi ve sleep apnea syndrome 61364781 Active 2020 Alfonzo Zamarripa MD Attn: Accounting, [address] [facility], [place], [address] [place] [address], [facility] - SIF 1 16:06:43 Gastroeso phageal reflux disease 363309416 Completed 09/06/2020 Alfonzo Zamarripa MD Attn: Accounting, [address] [facility], [place], [address] [place] [address], [facility] - SI 0 14:27:50 Essential hypertens ion 51796635 Active SHEKHAR Garcia Attn: Accounting, [address] [facility], [place], [address] [place] [address], [facility] - SI 6 13:00:49 Tobacco dependenc e, continuou s 891037090 Completed 03/02/2020 [place] 0 17:02:27 Hyperlipi demia 46691198 Completed 09/06/2020 Alfonzo Zamarripa MD Attn: Accounting, [address] [facility], [place], [address] [place] [address], [facility] - SI 0 14:27:54 Moderate depressio n 182050033 Completed 09/06/2020 Alfonzo Zamarripa MD Attn: Accounting, [address] [place], [address] [place] [address], [facility] - SI 0 14:28:02 Tobacco dependenc e syndrome 84882467 Active SHEKHAR Garcia Attn: Accounting, [address] [place], [address] [place] [address], [place] [facility] 6 13:00:49 Condyloma acuminata of vulva 798871066 Active SHEKHAR Garcia Attn: Accounting, [address] [place], [address] [place] [address], [place] [facility] 6 11:25:31 Acute sinusitis 73436886 Completed 09/06/2020 Alfonzo Zamarripa MD Attn: Accounting, [address] [place], [address] [place] [address], [place] [facility] 0 14:27:41 Atypical squamous cells of undetermi cris significa nce on cervical Papanicol aou smear 857504758 Active SHEKHAR Garcia Attn: Accounting, [address] [place], [address] [place] [address], [facility] - [facility] 6 11:25:31 HPV - Human papilloma virus test positive Active SHEKHAR Garcia Attn: Accounting, [address] [place], [address] [place] [address], [place] [facility] 6 11:25:31 Restless legs 04708662 Completed 09/06/2020 Alfonzo Zamarripa MD Attn: Accounting, [address] [place], [address] [place] [address], [place] [facility] 0 14:28:06 Vitamin D deficienc y 94740527 Completed 09/06/2020 Alfonzo Zamarripa MD Attn: Accounting, [address] [place], [address], [place] [facility] 0 14:28:11 Polycysti c ovaries Active 2016 Anahi Lui [place] [facility], [place] - [facility] 7 10:48:34 Problem Notes None recorded. Procedures Surgical History Date Name Laterality Status Provider Name and Address Organization Details Recorded Time 06/17/20 19 Cryotherapy - OFFSET PRINTER completed Francisco Marrero MD Attn: Accounting, [address] [place], [place], [address] [place] [address], [facility] - SI 06/17/2019 15:24:30 08/02/20 17 IUD Insertion completed Francisco Marrero MD Attn: Accounting, [address] [facility], [place], [address], [facility] - SI 08/02/2017 16:22:54 11/19/19 17 Cryotherapy - OFFSET PRINTER completed Reena Daley [facility] Attn: Accounting, [address] [facility], [place], [address], [facility] 11/19/2016 12:18:28 11/19/19 17 Other completed Anahi Lui [facility] 11/19/2016 11:33:49 10/03/19 17 Colposcopy completed Reena Daley [facility] Attn: Accounting, [address] [place], [address], [facility] SI 10/03/2016 16:25:51 07/17/20 16 Date of Last Pap Smear completed Anahi Lui MA [facility] 07/17/2016 15:50:16 01/09/20 16 Colposcopy completed Reena Daley [facility] Attn: Accounting, [address] [place], [address], [facility] SI 01/09/2016 15:45:43 01/09/20 16 Colposcopy completed Anahi Andrea [facility] 01/09/2016 14:45:10 Tonsillectomy completed Joanna Augustine [facility] 08/24/2014 11:06:47 Cholecystectomy completed Joanna Augustine [facility] 08/24/2014 11:06:47 Imaging Results None recorded. Procedure Notes None recorded. Medical Equipment None Reported. Allergies No known drug allergies Medications Name Sig Start Date Stop Date Status Note LastModified by Organization Details LastModified Time Prescriptio n - New 09/06 completed CPAP Not Available Not Available Not Available cyclobenzap rine 10 mg tablet TAKE ONE TABLET BY MOUTH ONCE DAILY AT BEDTIME 09/06 completed Not Available Not Available Not Available Mirena 21 mcg/24 hr (up to 8 years) 52 mg intrauterin e device Take 1 device by intrauter ine route. 09/06 completed Not Available Not Available Not Available pravastatin 40 mg tablet Take 1 tablet every day by oral route. 05/08 completed Not Available Not Available Not Available tizanidine 4 mg tablet TAKE ONE TABLET BY MOUTH AT BEDTIME active Not Available Not Available No t Available phentermine 15 mg capsule Take 1 capsule every day by oral route. 06/04 completed Not Available Not Available Not Available omeprazole 40 mg capsule,del ayed release TAKE 1 CAPSULE BY MOUTH EVERY DAY 09/06 completed Not Available Not Available Not Available triamcinolo ne acetonide 0.1 % topical cream APPLY A THIN LAYER TO THE AFFECTED AREA(S) BY TOPICAL ROUTE 2 TIMES PER DAY active Not Available Not Available No t Available Imitrex 50 mg tablet take one tablet if no relief may repeat dose in 2 hours not to exceed 200mg in a 24 hour period of time 09/06 completed Not Available Not Available Not Available amoxicillin 875 mg tablet Take 1 tablet every 12 hours by oral route for 10 days. 03/19 completed Not Available Not Available Not Available famotidine 20 mg tablet Take 1 tablet twice a day by oral route as needed. active Not Available Not Available No t Available pravastatin 80 mg tablet TAKE 1 TABLET BY MOUTH EVERY DAY active Not Available Not Available No t Available imiquimod 5 % topical cream packet APPLY TO THE AFFECTED AREA(S) BY TOPICAL ROUTE HS x 4 active Not Available Not Available No t Available ropinirole 0.5 mg tablet TAKE 1 TABLET BY MOUTH EVERY DAY active Not Available Not Available No t Available ranitidine 300 mg capsule Take 1 capsule(s ) every day by oral route. 2013 active Not Available Not Available Not Avai lable gabapentin 300 mg capsule TAKE ONE CAPSULE BY MOUTH ONCE DAILY AT BEDTIME 06/04 completed Not Available Not Available Not Available sertraline 25 mg tablet TAKE ONE TABLET BY MOUTH ONCE DAILY active Not Available Not Available No t Available omeprazole 20 mg capsule,del ayed release TAKE ONE CAPSULE BY MOUTH ONCE DAILY 09/10 completed Not Available Not Available Not Available lisinopril 20 mg-hydrochl orothiazide 25 mg tablet TAKE ONE TABLET BY MOUTH DAILY active Not Available Not Available No t Available aspirin 81 mg chewable tablet Chew 1 tablet every day by oral route. 2018 active Not Available Not Available Not Avai lable pravastatin 20 mg tablet TAKE ONE TABLET BY MOUTH ONCE DAILY 07/17 completed Not Available Not Available Not Available Vitamin D2 1,250 mcg (50,000 unit) capsule Take 1 capsule every week by oral route. 11/30 completed Not Available Not Available Not Available ropinirole 5 mg tablet Take 1 tablet every day by oral route at bedtime. 08/18 completed Not Available Not Available Not Available sertraline 50 mg tablet TAKE 1 TABLET BY MOUTH EVERY DAY (blood tests and return to clinic in 3mo) 09/06 completed Not Available Not Available Not Available loratadine 10 mg tablet TAKE ONE TABLET BY MOUTH DAILY NEEDED active Not Available Not Available No t Available amoxicillin 875 mg-potassiu m clavulanate 125 mg tablet Take 1 tablet every 12 hours by oral route for 10 days. 10/26 completed Not Available Not Available Not Available topiramate 50 mg tablet Take 1 tablet twice a day by oral route. active Not Available Not Available No t Available Milk of Magnesia 09/06 completed Not Available Not Available Not Available Vitamin C active Not Available Not Shiela ilable Not Available multivitami n active Not Available Not Available Not Available ProAir HFA 90 mcg/actuati on aerosol inhaler 10/03 completed Not Available Not Available Not Available Requip XL 4 mg tablet,exte nded release Take 2 tablets every day by oral route. 03/02 completed Not Available Not Available Not Available Chantix Starting Month Box 0.5 mg (11)-1 mg (42) tablets in dose pack Take by oral route as directed active Not Available Not Available No t Available Jencycla 0.35 mg tablet TAKE ONE TABLET BY MOUTH ONCE DAILY DIRECTED 02/04 completed Not Available Not Available Not Available Flonase Allergy Relief 50 mcg/actuati on nasal spray,suspe nsion [place] 2 sprays every day by intranasa l route. 03/02 completed Not Available Not Available Not Available Vitals Date Recorded Body height Body mass index (BMI) Body weight Heart rate Respiratory rate Systolic blood pressure Diastolic blood pressure Systolic blood pressure Diastolic blood pressure Provider Name and Address Organization Details Last Updated DateTime 9 160.02 cm 34.2 kg/m2 38248.7 3 g 76 /min 16 /min 160 mm[Hg] 98 mm[Hg] 158 mm[Hg] 98 mm[Hg] Lizeth Francis MA [facility] 9 15:44:34 Date Recorded Body height Provider Name an d Address Organization Details Last Updated DateTime 03/02/2020 160.02 cm Pauline Lagos MA [facility] 15:44:48 Date Recorded Body height Provider Name an d Address Organization Details Last Updated DateTime 09/06/2020 160.02 cm Paulinekayden Lagos MA [facility] 12:22:51 Date Recorded Body height Provider Name an d Address Organization Details Last Updated DateTime 01/16/2021 160.02 cm FLETCHER Nielsen [facility] 15:32:16 Social History Question Answer Notes LastModified by Organizat ion Details LastModified Time Tobacco Smoking Status Current [facility]2014 11:06:47 Do You Have An Advance Directive? No Information not available 01/16/2021 What Is Your Level Of Alcohol Consumption? Moderate Information not available 01/16/2021 Are You Blind Or Do You Have Difficulty Seeing? No Can Not See Far Away Information not available 01/16/2021 What Is Your Level Of Caffeine Consumption? Heavy Information not available 01/16/2021 In The 14 Days Before Symptom Onset, Have You Had Close Contact With A Laboratory-confir med COVID-19 While That Case Was Ill? No Information not available 01/16/2021 In The 14 Days Before Symptom Onset, Have You Had Close Contact With A Person Who Is Under Investigation For COVID-19 While That Person Was Ill? No Information not available 01/16/2021 Have You Been To An Area Known To Be High Risk For COVID-19? No Information not available 01/16/2021 Are You Currently Employed? No School Information not available 01/16/2021 Are You Deaf Or Do You Have Serious Difficulty Hearing? No Information not available 01/16/2021 What Type Of Diet Are You Following? REGULAR Information not available 01/16/2021 Are There Any Guns Present In Your Home? Yes Information not available 01/16/2021 What Was The Date Of Your Most Recent Tobacco Screening? 09/06/2020 Information not available 09/06/2020 How Many Children Do You Have? 0 Information not available 08/24/2014 What Is Your Relationship Status? Information not available 08/24/2014 Do You Use Your Seat Belt Or Car Seat Routinely? Yes Information not available 01/16/2021 Do You Have Smoke And Carbon Monoxide Detectors In Your Home? Yes Information not available 01/16/2021 How Much Tobacco Do You Smoke? 1 PPD Information not available 09/06/2020 Do You Feel Stressed (tense, Restless, Nervous, Or Anxious, Or Unable To Sleep At Night)? [id number] Information not available 01/16/2021 Do You Use Any Illicit Or Recreational Drugs? No Information not available 01/16/2021 Do You Use Sunscreen Routinely? Yes Information not available 01/16/2021 On What Date Was Tobacco Cessation Counseling Provided? 09/06/2020 Information not available 09/06/2020 How Many Years Have You Smoked Tobacco? 26 Information not available 09/06/2020 Sex: Unknown Functional Status Question Answer Note LastModified by Organization D etails LastModified Time Are you able to care for yourself? Yes Information n ot available 01/16/2021 What is your exercise level? None Information not available 01/16/2021 Mental Status None recorded. Family History Relationship Description Onset Age of this Age Resolved Age Notes LastModified by Organization Details LastModified Time Father Malignant tumor of stomach Autoim mune disord er also Not available 05/01/2016 11:25:38 Father Hypertensive disorder Not available 2015 11:25:38 Father Hyperlipidem ia ssuthan Not available 2019 14:13:17 Paternal Grandmother Malignant tumor of ovary Not available 2015 11:25:38 Mother Hypertensive disorder Not available 2015 11:25:38 Mother Diabetes mellitus Mental health issues also Not available 05/01/2016 11:25:38 Brother Bipolar disorder ssuthan Not available 2019 14:13:46 Medical History Condition Response Heart Problems N Other Y High Blood Pressure Y Breast Cancer N Thyroid Problems N Kidney or Bladder Problems N GI Problems N Lung Disease N Depression N Blood Clots N Acne N Breast Problem N Skin Problems Y Eating Disorder N Anemia N Anesthesia Complications N Headaches/Migraines N Anxiety Disorder N Diabetes N Ovarian Cancer N Muscle, Joint, or Bone Problems N Obesity Y Blood Transfusions N Arthritis N Seizures/Epilepsy N Infertility N Polyps N Acid Reflux (GERD) Y Hyperlipidemia Y Cancer N Stroke N Abuse/Domestic Violence N Asthma N Endometriosis N High Cholesterol Y Hepatitis N Liver Disease N Heart Disease N Fibromyalgia N Pre-Eclampsia N Hypertension N Osteoporosis N Kidney Disease N Gynecological History Statement/Question Response Abnormal Pap Yes Sexually Active? Y Menses Monthly N STIs/STDs Y Date of Last Pap Smear 07/17/2016 Sexual Problems? N Age at Menarche 11 Current Control Method BCPs LMP Unknown Obstetrics History GPAL:G 0 P 0 0 0 0 Immunizations Vaccine Type Date Status Note Provider Nam e and Address Organization Details Recorded Time COVID-19, mRNA, LNP-S, PF, 30 mcg/0.3 mL dose 1 completed Uriel Hernandes RN [facility], [facility] 05/15/2021 11:53:40 Tdap 7 completed Not Available [facility] 10/17/2019 02:39:18 Influenza, split virus, quadrivalent, preservative 9 completed Not Available [facility] 10/17/2019 02:47:15 Past Encounters Encounter ID Performer Location Encounter Start Date Encounter Closed Date Diagnosis/Indication Diagnosis SNOMED-CT Code Diagnosis ICD10 Code Diagnosis Note [id number] Maegan Nash ([facility]) [address] [place] [place] [address] 08/31/2014 09:42:00 08/31/2014 11:45:25 [id number] Isiah Nash ([facility]) [address] [place] [place] [address] 05/13/2015 14:37:09 05/16/2015 12:19:33 Adult health examination 825023441 Laboratory test 45773069 Hyperlipidemia 75267507 Essential hypertension 32414355 Moderate depression 641745709 Tobacco de pendence syndrome 07421785 Depression screening 754975123 [id number] Isiah Womenjuan r ([facility]) [address] [place] [address] 06/20/2015 15:53:34 06/21/2015 09:50:36 Venereal disease screening 135783429 Gynecologi c examination 22060609 Uses oral contraception 3375820 Condyloma acuminata of vulva 128338957 [id number] SHEKHAR Garcias ([facility]) [address] [place] [address] 07/18/2015 16:38:49 07/18/2015 18:18:30 Moderate depression 673663957 F32.1 Gastroesop hageal reflux disease 763121811 K21.9 [id number] SHEKHAR Garcia ([facility]) 2 [facility] [place] [address] 08/19/2015 09:55:18 08/19/2015 10:49:47 Acute sinusitis 66499487 J01.10 [id number] Reena Daley [facility] Isiah Nash ([place] [address]) [address] [place] [address] 12/06/2015 15:38:44 12/13/2015 12:18:22 Atypical squamous cells of undetermined significance on cervical Papanicolaou smear 448351627 R87.610 [id number] Reena Daley MARIA ELENA Isiah Nash ([facility]) [address] [place] [address] 01/09/2016 14:35:00 01/09/2016 16:27:00 HPV - Human papillomavirus test positive 332118251 R87.619 [id number] SHEKHAR Garcia ([facility]) [address] [place] [address] 03/26/2016 15:46:26 03/26/2016 17:02:31 Restless legs 03952292 G25.81 [id number] SHEKHAR Garcia ([facility]) 2 [facility] [place] [address] 05/01/2016 10:54:00 05/01/2016 18:56:20 Gastroesophageal reflux disease 725586065 K21.9 Essential hypertension 79979621 I10 Moderate depression 3104 12174 F32.1 Restless legs 67609682 G 25.81 Tobacco de pendence syndrome 57903068 F17.290 Hyperlipidemia 56753740 E78.5 [id number] Reena Daley [facility] ([facility]) 2 [facility] [place] [address] 07/17/2016 15:48:08 07/18/2016 10:00:07 Gynecologic examination 46720252 Z01.419 641236 Surveillan ce of oral contraception 773795357 Z30.41 Uses oral contraception 2058586 Z79.3 [id number] Reena Daley [facility] ([facility]) [address] [place] [address] 10/03/2016 15:38:28 10/08/2016 10:52:56 HPV - Human papillomavirus test positive 659587897 R87.619 detection examination 49470216 Z32.00 [id number] SHEKHAR Garcia [facility] ([facility]) 2 [facility] [place] [address] 11/05/2016 14:18:18 11/06/2016 10:32:02 Essential hypertension 59531135 I10 Counseled on HTN and medication -will continue current medication . Encouraged to monitor blood pressures with goal <140/90. Encouraged healthy diet and exercise. Counseled on smoking cessation. Gastroesop hageal reflux disease 839646196 K21.9 Counseled on GERD and medication (reviewed with patient side effects and need to come off medication for prolonged use-reques ts to continue medication at this time). Encouraged low fat diet, alcohol, spicy greasy foods and caffeinate d beverages. Keep head of bed elevated at night. Do not eat 2-3 hours prior to bedtime. Moderate depression 3104 07157 F32.1 Counseled on depression and medication -will continue current dose at this time. Counseled on seeking help from 911 or go to ER for suicidal or homicidal thoughts. Hypercholesterolemia 136 11597 E78.2 Counseled on hyperlipid emia, needed dietary changes/ex ercise and medication (side effects reviewed)- will fasting lab work Vitamin D deficiency 347 25172 E55.9 Obesity 441914403 E66.9 [id number] Reena Daley [facility] Isiah Nash ([facility]) [address] [place] [address] 11/19/2016 11:20:27 11/20/2016 11:54:13 test negative 355677742 Z32.02 Abnormal c ervical Papanicolaou smear 159955740 R87.598 [id number] SHEKHAR Garcia ([facility]) 2 [facility] [place] [address] 12/20/2016 14:37:04 12/21/2016 10:31:42 Acute right otitis media 980591271 H66.91 Counseled on otitis media and medication . Instructed to take all of antibiotic until gone-reinf orced the importance of compliance with antibiotic -Tylenol/I buprofen as needed. Acute sinusitis 77009808 J01.90 Counseled on sinusitis and medication s/antibiot ic use. Ibuprofen/ Tylenol for pain. Encouraged to increase fluid intake and encouraged to stop smoking. Humidifier as needed. Nasal saline wash as needed, continue Mucinex [id number] SHEKHAR Garcia ([place] [address]) 2 [facility] [place] [address] 02/11/2017 08:18:18 02/11/2017 14:39:23 Hypersomnia with sleep apnea 26412939 G47.10 Will send for sleep study-enco urage good sleep hygiene, encourage healthy diet and exercise [id number] Reena Daley [facility] Isiah Nash ([facility]) 2 [facility] [place] [address] 03/19/2017 15:43:05 03/20/2017 08:51:41 HPV - Human papillomavirus test positive 283474326 R87.980 [id number] SHEKHAR Garcia ([facility]) 2 [facility] [place] [address] 05/02/2017 08:24:18 05/02/2017 10:58:22 Adult health examination 880317930 Z00.00 Counseled on the importance of healthy diet and exercise for weight loss. Fasting lab work. Advised adequate calcium intake through dairy and dark leafy vegetables . Adequate hydration and decrease soda intake. Advised on immunizati ons-given Tdap today Obesity 097729752 E66.9 Counseled on weight loss-encou rage heart healthy diet and increasing exercise-p ortion control, decreasing processed foods HIV screening 134675105 Z11.4 Essential hypertension 59553054 I10 Advised to continue home medication s-monitor bp if continuous ly > 140/90 to call office Administra tion of diphtheria, pertussis, and tetanus vaccine 898883423 Z23 [id number] SHEKHAR Garcia ([facility]) [address] [place] [address] 05/09/2017 14:38:07 05/10/2017 09:02:19 Abrasion of skin of lower limb 141190895 S80.812A [id number] MD Isiah Yoo ([facility]) 2 [facility] [place] [address] 07/09/2017 14:27:09 07/09/2017 16:37:34 Contraception care management 213927386 Z30.9 Discontinu e OCPsDesire s Mirena IUD, will contact insurance company to see if device is covered. Otherwise she will use depo-prove ra. [id number] MD Isiah Yoo ([facility]) [address] [place] [address] 08/02/2017 15:24:43 08/05/2017 15:52:22 Insertion of intrauterine contraceptive device 92157175 Z30.430 RTC in 4 weeks for a IUD string check [id number] SHEKHAR Garcia ([facility]) [address] [place] [address] 09/10/2017 08:30:35 09/10/2017 14:22:07 Essential hypertension 88319876 I10 Counseled on HTN and medication -will continue current medication . Encouraged to monitor blood pressures with goal <140/90. Encouraged healthy diet and exercise. Counseled on smoking cessation. Gastroesop hageal reflux disease 767875687 K21.9 Counseled on GERD and medication (reviewed with patient side effects and need to come off medication for prolonged use-reques ts to continue medication at this time). Encouraged low fat diet, alcohol, spicy greasy foods and caffeinate d beverages. Keep head of bed elevated at night. Do not eat 2-3 hours prior to bedtime. Moderate depression 3104 85793 F32.1 Counseled on depression and medication -will continue current dose at this time. Counseled on seeking help from 911 or go to ER for suicidal or homicidal thoughts. Hypercholesterolemia 136 83395 E78.2 Counseled on hyperlipid emia, needed dietary changes/ex ercise and medication (side effects reviewed)- will fasting lab work Vitamin D deficiency 347 60647 E55.9 [id number] MD Isiah Yoo [facility] ([facility]) 2 [facility] [address] [place] [address] 11/22/2017 09:23:09 11/25/2017 14:15:54 Body mass index 30+ - obesity 956384974 Z68.32 Surveillan ce of intrauterine device contraception done 5022495859 56344 Z30.40 Mirena IUD strings seen [id number] SHEKHAR Garcia 14 IM 4 [facility] [address] [place] [address] 03/06/2018 14:40:38 03/07/2018 09:47:41 Acute sinusitis 20628050 J01.90 Counseled on sinusitis and medication s/antibiot ic use. Ibuprofen/ Tylenol for pain. Encouraged to increase fluid intake and encouraged to stop smoking. Humidifier as needed. Nasal saline wash as needed, continue Mucinex Serous otitis media 8032 7007 H65.93 [id number] SHEKHAR Garcia 14 IM 4 [facility] [address] [place] [address] 04/30/2018 08:53:27 04/30/2018 15:37:27 Essential hypertension 59429507 I10 Counseled on HTN and medication -will continue current medication . Encouraged to monitor blood pressures with goal <130/80. Encouraged healthy diet and exercise. Counseled on smoking cessation. f/u 6 months Gastroesop hageal reflux disease 561601637 K21.9 Counseled on GERD and medication (reviewed with patient side effects and need to come off medication for prolonged use-reques ts to continue medication at this time). Encouraged low fat diet, alcohol, spicy greasy foods and caffeinate d beverages. Keep head of bed elevated at night. Do not eat 2-3 hours prior to bedtime. Moderate depression 3104 02074 F32.1 Counseled on depression and medication -will continue current dose at this time. Counseled on seeking help from 911 or go to ER for suicidal or homicidal thoughts. Hypercholesterolemia 136 55523 E78.2 Counseled on hyperlipid emia, needed dietary changes/ex ercise and medication (side effects reviewed)- will fasting lab work Renewal of prescription 268907819 Z76.0 [id number] MD Isiah Yoo 14 OB 4 [facility] [address] [place] [address] 10/06/2018 09:09:24 10/06/2018 14:54:39 Gynecologic examination 70477965 Z01.419 CBE and pap smear performed Screening mammography 24 437212 Z12.31 Condyloma acuminatum of the anogenital region 139202481 A63.0 Will RTC for removal. [id number] SHEKHAR Garcia 14 IM 4 [facility] [address] [place] [address] 11/03/2018 08:39:13 11/04/2018 10:04:01 Obstructive sleep apnea of adult 2231187692 103 G47.33 Continue CPAP-no O2 bleed in needed Administra tion of influenza vaccine 93965092 Z23 Acute sinusitis 29400287 J01.90 Counseled on sinusitis and medication s/antibiot ic use. Ibuprofen/ Tylenol for pain. Encouraged to increase fluid intake and encouraged to stop smoking. Humidifier as needed. Nasal saline wash as needed, continue Mucinex Essential hypertension 52333867 I10 Counseled on HTN and medication -will continue current medication . Encouraged to monitor blood pressures with goal <130/80. Encouraged healthy diet and exercise. Counseled on smoking cessation. f/u 6 months Gastroesop hageal reflux disease 804868456 K21.9 Counseled on GERD and medication (reviewed with patient side effects and need to come off medication for prolonged use-reques ts to continue medication at this time). Encouraged low fat diet, alcohol, spicy greasy foods and caffeinate d beverages. Keep head of bed elevated at night. Do not eat 2-3 hours prior to bedtime. Moderate depression 3104 42344 F32.1 Counseled on depression and medication -will continue current dose at this time. Counseled on seeking help from 911 or go to ER for suicidal or homicidal thoughts. Hypercholesterolemia 136 25127 E78.2 Counseled on hyperlipid emia, needed dietary changes/ex ercise and medication (side effects reviewed)- will fasting lab work Renewal of prescription 709550674 Z76.0 [id number] SHEKHAR Garcia 14 IM 4 [facility] [place] [address] 01/05/2019 08:54:50 01/06/2019 14:52:14 Obesity 908081654 E66.9 Counseled on weight loss-encou rage heart healthy diet and increasing exercise-p ortion control, decreasing processed foods Migraine 52136858 G43.90 9 Will give Imitrex for any further migraine-i f notes any new issues to return for further evaluation -have eyes checked Adult [facility] th examination 349516402 Z00.00 [id number] SHEKHAR Garcia 14 IM 4 [facility] [place] [address] 02/04/2019 08:36:35 02/05/2019 08:56:56 Obesity 625055065 E66.9 Counseled on weight loss, continue to use phentermin e in manner being used- encourage heart healthy diet and increasing exercise-p ortion control, decreasing processed foods Vitamin D deficiency 347 65419 E55.9 [id number] SHEKHAR Garcia 14 4 [facility] [place] [address] 06/04/2019 13:50:13 06/05/2019 09:23:55 Restless legs 52980956 G25.81 Change to requip for restless legs-stay hydrated, stretch legs Gastroesop hageal reflux disease 162642494 K21.9 Counseled on GERD and medication (reviewed with patient side effects and need to come off medication for prolonged use-reques ts to continue medication at this time). Encouraged low fat diet, alcohol, spicy greasy foods and caffeinate d beverages. Keep head of bed elevated at night. Do not eat 2-3 hours prior to bedtime. Essential hypertension 13152361 I10 Counseled on HTN and medication -will continue current medication . Encouraged to monitor blood pressures with goal <130/80. Encouraged healthy diet and exercise. Counseled on smoking cessation. f/u 6 months Hypercholesterolemia 136 24649 E78.2 Counseled on hyperlipid emia, needed dietary changes/ex ercise and medication (side effects reviewed)- will fasting lab work Renewal of prescription 286022735 Z76.0 Moderate depression 3104 45124 F32.1 Counseled on depression and medication -will continue current dose at this time. Counseled on seeking help from 911 or go to ER for suicidal or homicidal thoughts. Tobacco de pendence syndrome 71165194 F17.890 [id number] MD Isiah Yoo 14 OB 4 [facility] [place] [address] 06/17/2019 14:20:59 06/18/2019 08:30:03 Genital warts 982406056 A63.0 Cryotherap y performed in the office [id number] SHEKHAR Garcia 14 IM 4 [facility] [place] [address] 08/18/2019 14:54:09 08/19/2019 12:19:21 Acute sinusitis 45637425 J01.90 Counseled on sinusitis and medication s/antibiot ic use. Ibuprofen/ Tylenol for pain. Encouraged to increase fluid intake and encouraged to stop smoking. Humidifier as needed. Nasal saline wash as needed, use Coricidan hbp due to bp elevated Essential hypertension 13377437 I10 most likely elevated today due to illness and use of decongesta nt [id number] Mary Ellen Vaughnmissael Hinojosa 14 IM 4 [facility] [place] [address] 03/02/2020 08:48:51 03/02/2020 18:34:30 Vitamin D deficiency 03591486 E55.9 on MVI. Essential hypertension 06395578 I10 BP fluctuatin g. Check BP at home. Continue Lisinopril -HCTZ. Hyperlipidemia 40489121 E78.5 on statin Tobacco de pendence syndrome 10112278 F17.200 not ready, has chantix Moderate depression 3104 31849 F32.1 No significan t psych history. Father 5 years ago, started on Zolof then.Pt would like to wean off - ok. Gastroesop hageal reflux disease 903725936 K21.9 stable on PPI. Consider EGD. [id number] Jena Hernandez, [employer]- [employer] [place] [address] 06/28/2020 12:40:48 06/30/2020 10:14:30 Suspected COVID-19 694761547 Z03.893 [id number] MD Isiah Nazario 14 IM 4 [facility] [address] [place] [address] 09/06/2020 08:43:22 09/07/2020 11:16:41 Essential hypertension 40342689 I10 Clinically feels well.Low salt diet Hypercholesterolemia 136 97574 E78.00 Low cholestrol diet emphasised Ct medication as prescribed Mixed anxi ety and depressive disorder 342689262 F41.8 Controlled while on sertraline 25mg daily Allergic rhinitis 420798 04 J30.9 Symptomati avery better. Avoid known allergens. Cramp in l ower leg associated with rest 670244738 G47.62 Agree to consider tizanidine at bedtime PRN (stop ropirinole ) Gastroesop hageal reflux disease without esophagitis 759314286 K21.9 Loose weight , avoid soda, spicy stuff, Stop smokingUse medication as prescribed . Long-term drug therapy 686295036 Z79.899 Tobacco de pendence syndrome 97878989 F17.200 Recommend to slow shyanne and quit at the earliest- 1 PPD Episodic c hronic alcoholism 395342010 F10.20 Recommend to slow down and quit the habit [id number] MD Isiah Nazario 14 IM 4 [facility] [address] [place] [address] 01/16/2021 15:29:48 01/17/2021 10:28:31 Hypercholesterolemia 80003397 E78.00 Low cholestrol diet emphasised Ct medication as prescribed Essential hypertension 54266122 I10 Clinically feels well.Low salt diet Gastroesop hageal reflux disease without esophagitis 949834721 K21.9 Loose weight , avoid soda, spicy stuff, Stop smoking Use medication as prescribed . tolerating famotidine Tobacco de pendence syndrome 82744812 F17.200 Recommend to slow shyanne and quit at the earliest- 1 PPD Long-term drug therapy 937854785 Z79.899 Obesity 204723145 E66.9 Recommend to loose weight with diet control and exercise. wants something suppress appetite- try topiramate (Ht 5'3, Wt 200) Obstructiv e sleep apnea syndrome 62852197 G47.33 On auto PAP, no one monitors, will refer to sleep specialist Health Concerns Section Related Observation LastModified by Organization Detai ls LastModified Time None Recorded Concern Status LastModified by Organization Details LastModified Time None Recorded Advance Directives Directive N: Payers Encounter Date Sequence Insurance Name Policy Number Policy Zamora Covered Member ID Zamora Member ID Guarantor Name 08/18/2019 1 [employer] [facility] [id number] Malu De La Rosa [id number] Malu De La Rosa 03/02/2020 1 [place] [id number] Chicho Martinez [id number] Malu De La Rosa 06/28/2020 1 [place] [id number] Chicho Martinez [id number] Malu De La Rosa 09/06/2020 1 [place] [id number] Chicho Martinez [id number] Malu De La Rosa 01/16/2021 1 [place] [id number] Chicho Martinez [id number] Malu De La Rosa Notes Date Note Type Note Provider Name and Address Organization Details Recorded Time 08/18/20 19 text/htm l Upper Respiratory SymptomsReported bypatient.Location:head Quality:congested;hacking cough Severity:moderate Duration:symptoms lasting over 2 weeks Context:no foreign travel;sick contact;smoker Associated Symptoms:no sputum production; no shortness of breath; no wheezing; no change in number of pillows needed to sleep at night; no sweats; no fever; no significant weight gain; no significant weight loss; no morning cough; no sore throat; no vomiting; no diarrhea; no rash;fatigue;nausea SHEKHAR Garcia Attn: Accounting,[address] [place], [address], [facility] 08/19/2019 09:10:39 03/02/20 20 text/htm l pt is calling to get established. Aura pt. Doing well. HTN/HLDNo known cardiac issues.on Lisinopril-HCTZ, pravastatin, ASA Restless legsropinirole helps Depressionstarted on med 5 years ago when father passed.Otherwise no sig history.She would like to wean off med. Mary Ellen aleman, [facility] 03/02/2020 17:05:14 06/28/20 20 text/htm l COVID-19 Symptoms January 2020Reported bypatient.COVID-19 Signs and Symptomscough same; headache same; sore throat same; vomiting or diarrhea improving; fatigue improving Jena Hernandez, [facility]- Attn: Accounting,[address] [place], [address], [facility] 06/28/2020 13:09:55 09/06/20 20 text/htm l Anxiety/DepressionReported bypatient.Quality:symptoms improved Severity:denies suicidal ideations; does not interfere with activities of daily living Duration:stablizing Onset/Timing:gradual Modifying Factors:counselling; medications as directed Associated Symptoms:denies homicidal ideations; mood good; no crying spells; sleeping wellNotes:comfortable while on sertraline 25mg dailyGeneric HPI TemplateReported bypatient.Notes:Former pt of .Diagnosed case of HTN, HLD, BONIFACIO/depression, also cramps /RLSStill smokes upto 1 PPD and ETOH- vodka twice/wkHyperlipidemiaReported bypatient.Duration:chronic Control:improving Current Therapy:currently taking: (med as prescribed) Compliance:compliant with diet Complications:no coronary artery disease Risk Factors:hypertension;smoking;o besityHypertension F/UReported bypatient.Associated Symptoms:no dizziness; no chest pain; no shortness of breath; no palpitations; no edema Lifestyle:regular exercise; limiting/avoiding salt Medications:taking medications as directed; no side effects from medicationNotes:Home BP 'good'Reflux/GERDReported bypatient.Symptomsheartburn Quality:burning Severity:waking up at night Duration:present 1-4 years Context:smoker 1PPD;drug use(twice/wk of vodka or catian Morgon) Associated Symptoms:no difficulty swallowing; no weight lossNotes:agree to consider famotidineSinusitis/AllergyRep orted bypatient.Associated Symptoms:no nasal discharge Severity:no pain Context:no recent sick contactsNotes:stable on loratadine PRN Patient verbally consented for the phone visit Alfonzo Zamarripa MD Attn: [employer]ing,[address] [place], [id number], [facility] 09/06/2020 21:08:36 01/17/20 21 text/htm l Anxiety/DepressionReported bypatient.Quality:symptoms improved Severity:denies suicidal ideations; does not interfere with activities of daily living Duration:stablizing Onset/Timing:gradual Modifying Factors:counselling; medications as directed Associated Symptoms:denies homicidal ideations; mood good; no crying spells; sleeping wellNotes:comfortable while on sertraline 25mg dailyHyperlipidemiaReported bypatient.Duration:chronic Control:improving Current Therapy:currently taking: (med as prescribed) Compliance:compliant with diet Complications:no coronary artery disease Risk Factors:hypertension;smoking(1 PPD);obesityHypertension F/UReported bypatient.Associated Symptoms:no dizziness; no chest pain; no shortness of breath; no palpitations; no edema Lifestyle:regular exercise; limiting/avoiding salt Medications:taking medications as directed; no side effects from medicationNotes:Home BP 'good'Obstructive Sleep Apnea F/UReported bypatient.Severity:does not limit daily activities Prior Treatmentauto PAPReflux/GERDReported bypatient.Symptomsheartburn Quality:burning Severity:waking up at night Duration:present 1-4 years Context:smoker 1PPD;drug use(twice/wk of vodka or catian Morgon) Associated Symptoms:no difficulty swallowing; no weight lossNotes:agree to consider famotidineSinusitis/AllergyRep orted bypatient.Associated Symptoms:no nasal discharge Severity:no pain Context:no recent sick contactsNotes:stable on loratadine PRN Patient verbally consented for the phone visit Alfonzo Zamarripa MD Attn: [employer] [place], [address], [facility] 01/16/2021 21:30:54 OBGyn Episode No OBEpisode recorded.
--- OUTSIDE RECORDS SUMMARY | 2024-11-23 17:45 | XMS_ITS | Data Portability ---
Author Organization [facility] [place] Address [address] [place] [address] [place] [address] Care Team Providers Care Technical Supervisor Name Role Phone ARNOLDO GRANT Primary Care Provider [phone] Assessment Encounter Date Assessment Date Assessment LastModified by Organization Details LastModified Time 07/17/2022 07/17/2022 Annual gynecological exam performed. Patient will come back in a year unless there are new symptoms. Not available 07/17/2022 16:24:06 11/06/2023 11/06/2023 Annual gynecological exam performed. Patient will come back in a year unless there are new symptoms. [email or web address] Not available 11/06/2023 17:51:07 Plan of Treatment Reminders Order Date Submit Date Provider Last Modified By Organization Details Last Modified Time Details Appointments None recorded. Lab None recorded. Referral dermatologi st referral - Evaluation for Hidradeniti s Supprativa and genital wart removalPlea se contact this patient to schedule an appointment .Attached are the patients demographic s and most recent office visit notes.If you have any questions, please contact me at [phone].Thank you,Lizeth, Referral's 2021 022 CHRIS Ireland MD, [address] [place], [address], 05:01:31 Procedures None recorded. Surgeries None recorded. Imaging MAMMO, screening, bilateral 2023 024 [email or web address] [facility], [address], [address], [place], [address], 4 17:31:35 Medication Orders Cleocin T 1 % solution 2021 022 [facility] [address], [id number], 16:48:04 Patient TargetsNo targets recorded. Patient InstructionsNo instructions recorded. Reason for Referral Checker Dump Grounds Referral for H idradenitis suppurativa Evaluation for Hidradenitis Supprativa and genital wart removal Evaluation for Hidradenitis Supprativa and genital wart removalPlease contact this patient to schedule an appointment.Attached are the patients demographics and most recent office visit notes.If you have any questions, please contact me at [phone].Thank you,Lizeth Referral's Referring Physician: Radha Urbina, CEMENT FINISHER HELPER, Encounter Date: 07/17/2022 Results Created Date Observation Date Name Description Value Unit Range Abnormal Flag Note LastModifiedBy Organization Detail LastModifiedTime 07/17/20 22 07/17/2022 IMAGE GUIDE D PAP AND HPV REGAR DLESS image guided Pap, HPV regardless of Pap result SEE RESULT S BELOW CASE REPOR T: Cytol ogy Gynec ologi cherelle Repor t Case: [id number] Autho jennifer wong Provi yony: Ricki Hazel Colle cted: 07/17 1721 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 FINAL DIAGN OSIS: Negat curry for Intra epith elial Lesio n or Jolene zepeda (NIL) . Elect wali mora nickolas d by Bernarda Banegas ret, CT on 07/23 at 11:20 AM ----- ----- ----- ----- ----- ----- ----- ----- ----- ----- ----- ----- ----- ----- ----- ----- ----- ---- HPV RESUL TS: HPV mRNA E6/E7 : No HPV mRNA Detec nyla NOTE: This high risk HPV mRNA assay detec ts fourt een high- risk HPV types (16, 18, 31, 33, 35, 39, 45, 51, 52, 56, 58, 59, 66, 68) witho ut diffe renti ation . COMME NT: Note: This speci men was revie wed by a Cytot echno logis t and/o r Patho logis t (as indic ated in this repor t) after evalu ation using the Thinp rep Imagi ng Syste m. CLINI CHERELLE INFOR MATIO N: Menst rual Statu s: LMP (if appli cable ): Clini cherelle Histo ry/Pr eviou s Pap: Type of Neopl jn (if appli cable ): Signi fican t Clini cherelle Findi ngs: Other Histo ry: Hormo domingo (if appli cable ): PAP EDUCA ALFONSO L NOTE: The Pap Test is a scree rufina test with an inher ent false negat curry rate. Liqui d-bas ed sampl ing may decre ase, but will not elimi jeremías, false negat curry resul ts. A negat curry resul t does not precl ude the prese nce and/o r devel opmen t of disea se, since the prese nce of abnor mal cells in the sampl e depen ds on the locat ion of the lesio n and sampl ing techn ique. Rosie nued regul ar scree rufina is the best metho d of cance r preve ntion . If repor nyla cytol ogic findi ng do not corre late with physi cherelle and/o r histo rical findi ngs, furth er inves tigat ion is recom savannah d, as clini avery freeman nted. 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 Elect wali mora nickolas d by Mary Ellen Grullon on 024 at 1:35 PM ----- ----- ----- ----- ----- ----- ----- ----- ----- ----- ----- ----- ----- ----- ----- ----- ----- ---- HPV RESUL TS: HPV mRNA E6/E7 : No HPV mRNA Detec nyla NOTE: This high risk HPV mRNA assay detec ts fourt een high- risk HPV types (16, 18, 31, 33, 35, 39, 45, 51, 52, 56, 58, 59, 66, 68) witho ut diffe renti ation . COMME NT: This speci men was revie wed by a Cytot echno logis t and/o r Patho logis t (as indic ated in this repor t) after evalu ation using the Thinp rep Imagi ng Syste m. CLINI CHERELLE INFOR MATIO N: Menst rual Statu s: LMP (if appli cable ): Clini cherelle Histo ry/Pr eviou s Pap: Type of Neopl jn (if appli cable ): Signi fican t Clini cherelle Findi ngs: Other Histo ry: Hormo domingo (if appli cable ): PAP EDUCA ALFONSO L NOTE: The Pap Test is a scree rufina test with an inher ent false negat curry rate. Liqui d-bas ed sampl ing may decre ase, but will not elimi jeremías, false negat curry resul ts. A negat curry resul t does not precl ude the prese nce and/o r devel opmen t of disea se, since the prese nce of abnor mal cells in the sampl e depen ds on the locat ion of the lesio n and sampl ing techn ique. Rosie nued regul ar scree rufina is the best metho d of cance r preve ntion . If repor nyla cytol ogic findi ng do not corre late with physi cherelle and/o r histo rical findi ngs, furth er inves tigat ion is recom savannah d, as clini avery freeman nted. 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 Elect wali mora nickolas d by Chance White MD on 024 at 12:51 PM ----- ----- ----- ----- ----- ----- ----- ----- ----- ----- ----- ----- ----- ----- ----- ----- ----- ---- CLINI CHERELLE INFOR MATIO N: L98.9 MICRO SCOPI C DESCR IPTIO N: A micro scopi c exami natio n was perfo rmed. GROSS DESCR IPTIO N: A. Vagin a. The speci men is label ed with the patie nt's name, dima garcia and skin lesio n on vagin a . Recei kirk in forma ricky are 2 porti ons of vuong- saldaña, verru cous skin measu ring 0.[address] [facility]. Each are secti oned to revea l a vuong- saldaña to brown , rubbe ry surfa ce. The speci men is submi tted nusrat david in A1-A2 . Gross ed by Shantelle jay Not Available [facility] (Lab) [address], [place], [address], 12/04/2023 13:55:27 Result Notes None recorded. Procedures Surgical History Date Name Laterality Status Provider Name and Address Organization Details Recorded Time 024 Wart Topical Procedure completed Radha Urbina [facility] [address], [place], [address], [facility] 12/03/2023 18:05:31 024 Date of Last Pap Smear completed Isabella Samuels [facility] 12/03/2023 17:27:07 023 hernia repair [facility] [address], [place], [address], [facility] 11/06/2023 18:06:15 019 Date of Last Mammogram completed [facility] 07/17/2022 16:25:08 Cholecystectomy completed [facility] 07/17/2022 16:25:19 Imaging Results None recorded. Procedure Notes None recorded. Medical Equipment None Reported. Allergies No known drug allergies Medications Name Sig Start Date Stop Date Status Note LastModified by Organization Details LastModified Time cyclobenzap rine 10 mg tablet active Not Available Not Available Not Available atorvastati n 80 mg tablet active Not Available Not Available Not Available venlafaxine ER 75 mg capsule,ext ended release 24 hr 11/06 completed Not Available Not Available Not Available amlodipine 5 mg tablet active Not Available Not Available Not Available omeprazole 40 mg capsule,del ayed release active Not Available Not Available Not Available pravastatin 80 mg tablet 11/06 completed Not Available Not Available Not Available Effexor 75 mg tablet 07/17 completed Not Available Not Available Not Available omeprazole 20 mg capsule,del ayed release 11/06 completed Not Available Not Available Not Available lisinopril 20 mg-hydrochl orothiazide 25 mg tablet active Not Available Not Available Not Available sertraline 50 mg tablet active Not Available Not Available Not Available Cleocin T 1 % solution APPLY A THIN LAYER TO THE AFFECTED AREA(S) BY TOPICAL ROUTE 2 TIMES PER WEEK @ HS 2021 active Not Available Not Available Not Avai lable sertraline 11/06 completed Not Available Not Available Not Available amlodipine 11/06 completed Not Available Not Available Not Available Baby Aspirin active Not Available Not Available Not Available Acid Carrier Driver (omeprazole ) 20 mg capsule,del ayed release 11/06 completed Not Available Not Available Not Available Acid Carrier Driver (omeprazole ) 11/06 completed Not Available Not Available Not Available Alive Women's Ultra Potency 11/06 completed Not Available Not Available Not Available Ozempic 0.25 mg or 0.5 mg (2 mg/3 mL) subcutaneou s pen injector active Not Available Not Available Not Available Vitals Date Recorded Body height Body weight Provider Name and Address Organization Details Last Updated DateTime 07/17/2022 157.48 cm 30778.95 g Crystal Mckeon [facility] 07/17/2022 16:24:49 Date Recorded Systolic blood pressure Diastolic blood pressure Provider Name and Address Organization Details Last Updated DateTime 07/17/2022 128 mm[Hg] 80 mm[Hg] Radha Urbina [facility] [address], [place], [address], [facility] 07/17/2022 16:49:21 Date Recorded Body height Body mass index (BMI) Body weight Systolic blood pressure Diastolic blood pressure Provider Name and Address Organization Details Last Updated DateTime 11/06/2023 157.48 cm 36.2 kg/m2 72980.29 g 147 mm[Hg] 95 mm[Hg] Isabella Samuels [facility] 17:52:24 Date Recorded Body height Body mass index (BMI) Body weight Provider Name and Address Organization Details Last Updated DateTime 12/03/2023 157.48 cm 35.8 kg/m2 63273.1 g [facility] 12/03/2023 17:26:19 Date Recorded Systolic blood pressure Diastolic blood pressure Provider Name and Address Organization Details Last Updated DateTime 12/03/2023 132 mm[Hg] 84 mm[Hg] Radha Urbina [facility] [address], [place], [address], [facility] 12/03/2023 18:01:34 Social History Question Answer Notes LastModified by Organizat ion Details LastModified Time Tobacco Smoking Status Current Every Day Smoker Crystal aleman [facility] 07/17/2022 16:26:50 Do You Have An Advance Directive? No Information not available 07/17/2022 What Is Your Level Of Alcohol Consumption? Occasional Information not available 07/17/2022 How Many Years Have You Consumed Alcohol? 20 Information not available 07/17/2022 Are You Blind Or Do You Have Difficulty Seeing? No Information not available 07/17/2022 What Is Your Level Of Caffeine Consumption? Moderate Information not available 07/17/2022 How Much Tobacco Do You Chew? None Information not available 07/17/2022 In The 14 Days Before Symptom Onset, Have You Had Close Contact With A Laboratory-confir med COVID-19 While That Case Was Ill? No Information not available 07/17/2022 In The 14 Days Before Symptom Onset, Have You Had Close Contact With A Person Who Is Under Investigation For COVID-19 While That Person Was Ill? No Information not available 07/17/2022 Have You Been To An Area Known To Be High Risk For COVID-19? No Information not available 07/17/2022 Are You Deaf Or Do You Have Serious Difficulty Hearing? No Information not available 07/17/2022 What Type Of Diet Are You Following? REGULAR Information not available 07/17/2022 What Is The Highest Grade Or Level Of School You Have Completed Or The Highest Degree You Have Received? 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 Yes Information not available 07/17/2022 Do You Use Protection During Sex? Usually Information not available 07/17/2022 Do You Use Your Seat Belt Or Car Seat Routinely? Yes Information not available 07/17/2022 Do You Have Smoke And Carbon Monoxide Detectors In Your Home? Yes Information not available 07/17/2022 At What Age Did You Start Smoking Tobacco? 11 Information not available 07/17/2022 How Much Tobacco Do You Smoke? 1 PPD Information not available 07/17/2022 Do You Feel Stressed (tense, Restless, Nervous, Or Anxious, Or Unable To Sleep At Night)? [id number] Information not available 07/17/2022 Do You Use Any Illicit Or Recreational Drugs? No Information not available 07/17/2022 Do You Use Sunscreen Routinely? Yes Information not available 07/17/2022 How Many Years Have You Smoked Tobacco? 30 Information not available 07/17/2022 Have You Used IV Drugs? No Information not available 07/17/2022 Sex: Unknown Functional Status Question Answer Note LastModified by Organizat ion Details LastModified Time Do you have difficulty walking or climbing stairs? No Information not available 07/17/2022 Are you able to walk? YESWOREST Information not available 07/17/2022 Are you able to care for yourself? Yes Information not available 07/17/2022 Do you have difficulty dressing or bathing? No Information not available 07/17/2022 What is your exercise level? Occasional Information not available 07/17/2022 Mental Status None recorded. Family History Relationship Description Onset Age of this Age Resolved Age Notes LastModified by Organization Details LastModified Time Paternal Grandfather Malignant neoplasm of uterus Not available 2021 16:25:02 Father Disorder of lung Not available 2021 16:25:02 Father Anemia Not available 16:25:02 Father Hypercholest erolemia Not available 2021 16:25:02 Father Hypertensive disorder Not available 2021 16:25:02 Mother Anxiety disorder Not available 2021 16:25:02 Mother Mental disorder Not available 2021 16:25:02 Mother Depressive disorder Not available 2021 16:25:02 Mother Heart disease Not available 2021 16:25:02 Mother Hypertensive disorder Not available 2021 16:25:02 Mother Hypercholest erolemia Not available 2021 16:25:02 Mother Diabetes mellitus Not available 2021 16:25:02 Brother Mental disorder Not available 2021 16:25:02 Sister Depressive disorder Not available 2021 16:25:02 Sister Anxiety disorder Not available 2021 16:25:02 Sister Mental disorder Not available 2021 16:25:02 Medical History Condition Response Anxiety Disorder Y Depression/ depression Y High Cholesterol Y Acid Reflux (GERD) Y Polycystic ovary syndrome Y Hypertension Y Gynecological History Statement/Question Response Abnormal Pap Y Date of Last Mammogram 01/29/2019 Date of LMP N Was last menstrual period normal N STIs/STDs Y HPV Vaccine N Current Control Method IUD Date of control 08/02/2017 Are cycles usually normal N Sexually Active? Y Menses Monthly N Age of first menstrual cycle 10 Date of Last Pap Smear 11/06/2023 Sexual Problems? N Desired Control Method IUD LMP Unknown N Obstetrics History GPAL:G 0 P 0 0 0 0 Past Encounters Encounter ID Performer Location Encounter Start Date Encounter Closed Date Diagnosis/Indication Diagnosis SNOMED-CT Code Diagnosis ICD10 Code Diagnosis Note [id number] [facility] [address] [address] 07/17/2022 16:03:54 07/18/2022 12:58:44 Gynecologic examination 72043869 Z01.419 Suggested Calcium with Vitamin D 1200-1500m g daily. Patient advised to get an annual flu shot in the fall and she could obtain at [facility] or [facility] clinic. Also to obtain TDap vaccinatio n if you have not had one in the last 10 years. Recommend yearly mammograms . Encouraged monthly self breast exams. Encourage safe sexual practices, to use condoms and limit partners if not already in a monogamous relationsh ip. Engage in daily exercise of low impact aerobic exercise 45-60 minutes 4-5 times weekly. Avoid tobacco and illicit drugs as well as using moderation with alcohol intake less than 1-2 8 oz beverages daily. This lifestyle behavior pattern will lead to less health conditions and longer life span. If BMI greater than 25 weight watchers or dietary consult advised. All questions have been answered. Patient appears to understand informatio n, but if you have any questions please call or respond to this email. Pap/hpv sent STD Screen declined Genetic Screen discussed Colon Screen na Dexa Screen na Routine Labs PCPMammo ordered Hidradenit is suppurativa 51567622 L73.2 B07.9 Recommende d Derm consult for wart removal/HS management . [id number] Radha Urbina [facility] [address] [address] 11/06/2023 17:37:02 11/07/2023 13:56:15 Gynecologic examination 36283943 Z01.419 Z11.51 Suggested Calcium with Vitamin D 1200-1500m g daily. Patient advised to get an annual flu shot in the fall and she could obtain at [facility] or [facility] clinic. Also to obtain TDap vaccinatio n if you have not had one in the last 10 years. Recommend yearly mammograms . Encouraged monthly self breast exams. Encourage safe sexual practices, to use condoms and limit partners if not already in a monogamous relationsh ip. Engage in daily exercise of low impact aerobic exercise 45-60 minutes 4-5 times weekly. Avoid tobacco and illicit drugs as well as using moderation with alcohol intake less than 1-2 8 oz beverages daily. This lifestyle behavior pattern will lead to less health conditions and longer life span. If BMI greater than 25 weight watchers or dietary consult advised. All questions have been answered. Patient appears to understand informatio n, but if you have any questions please call or respond to this email. Pap/hpv sentSTD Screen declinedGe netic Screen discussedC olon Screen naDexa Screen naRoutine Labs PCPMammo ordered Screening mammography 24 099818 Z12.31 Genital warts 339842058 A63.0 Today we discussed removal of two genital warts that are >1cm and are in areas that are bothersome .Will schedule appt Elevated blood-pressure reading without diagnosis of hypertension 527798425 R03.0 Check in with PCP for BPNo sx'sED precaution s if sx's [id number] Radha Urbina [facility] [address] [address] 12/03/2023 17:13:58 12/05/2023 12:11:31 Genital warts 505398654 A63.0 See procedure notesPost- procedure instructio ns reviewedWe t wipes/warm wash cloth after bowel movement.W jody normally but no scrubbing the area.If any issues or signs of infection please contact us for abx/appt.U nderstandi ng verbalized . Health Concerns Section Related Observation LastModified by Organization Detai ls LastModified Time None Recorded Concern Status LastModified by Organization Details LastModified Time None Recorded Advance Directives Directive N: Payers Encounter Date Sequence Insurance Name Policy Number Policy Zamora Covered Member ID Zamora Member ID Guarantor Name 07/17/2022 1 [facility] [id number] Malu De La Rosa [id number] Malu De La Rosa 11/06/2023 1 [facility] [id number] Malu De La Rosa [id number] Malu De La Rosa 12/03/2023 1 [facility] [id number] Malu De La Rosa [id number] Malu De La Rosa Notes Date Note Type Note Provider Name and Address Organization Details Recorded Time 07/17/2022 text/html Annual GYNReport ed bypatient.Menstrua l cycle:Normal menses Urinary symptoms:No hematuria; No incontinence Vulva:Multiple sores(Boils vulva/inner thighs/other.) Vagina:Normal vaginal discharge Breast:No breast pain; No breast lump; No nipple discharge Current Contraception:Sati sfied with current contraception; Intrauterine device (iud) Sexual complaints:No sexual complaints; No pain during intercourse; Normal libido Menopausal Symptoms:No menopausal symptoms; Normal vaginal lubrication Psychological symptoms:No depression; No anxiety; No PMDD Preventive measures:Encourage self breast examination; Encourage regular exercise; Encourage no tobacco use; Encourage regular mammograms starting age 40; Followed with yearly pap smears Radha Urbina [facility]- [address], [place], [address], [facility] 07/29/2022 20:03:39 11/06/2023 text/html Annual GYNReport ed bypatient.Menstrua l cycle:Normal menses Urinary symptoms:No hematuria; No incontinence Vulva:No genital lesion Vagina:Normal vaginal discharge Breast:No breast pain; No breast lump; No nipple discharge Current Contraception:Sati sfied with current contraception; Intrauterine device (iud) Sexual complaints:No sexual complaints; No pain during intercourse; Normal libido Menopausal Symptoms:No menopausal symptoms; Normal vaginal lubrication Psychological symptoms:No depression; No anxiety; No PMDD Preventive measures:Encourage self breast examination; Encourage regular exercise; Encourage no tobacco use; Encourage regular mammograms starting age 40; Followed with yearly pap smears; Needs to schedule mammogram; Needs to schedule colonoscopy Radha Urbina [facility] [address], [place], [address], [facility] 11/07/2023 13:30:13 12/03/2023 text/html Here today for lesion removal of genital warts. Radha Urbina [facility] [address], [place], [address], [facility] 12/05/2023 11:56:07 OBGyn Episode No OBEpisode recorded.
== END 2024-11-23 15:10 | disposition home or self-care (01) ==
LOC: CHSLAB 15:12
PROVIDERS: PCP Nurse Practitioner Family; Visit Provider Nurse Practitioner Family
DX: U07.1 COVID-19 (principal); R50.9 Fever, unspecified; J02.9 Acute pharyngitis, unspecified
CPT/HCPCS: 87637; 87651

== ENCOUNTER 2025-03-18 10:58 | Emergency (ER) | payer OTHER, SELFPAY ==
--- NOTE | ~2025-03-18 | CT_ITS ---
EXAMINATION: CT brain wo con DATE: 03/18/2025 11:20 INDICATION: Head injury TECHNIQUE: Computed tomography (CT) of the head was performed without intravenous contrast. Sagittal and coronal reconstructions were performed. The mA was adjusted according to patient size. Iterative reconstruction technique was employed. The dose-length product was 605.33 mGy-cm. COMPARISON: None FINDINGS: No fracture. No acute intracranial hemorrhage, acute infarction or abnormal extra axial fluid collect ion. Ventricles are normal and symmetric. No mass/mass effect. The orbits, paranasal sinuses and mast oid air cells are normal. IMPRESSION: 1. Normal head CT. No fracture or acute intracranial process. Reviewed, dictated and finalized at location A.
[2025-03-18 11:00] VITALS: BP 161/103; PULSE 100; RESP 18; TEMP 36.6; O2SAT 100
--- NOTE | 2025-03-18 11:24 | ED_ITS ---
HPI - Headache General Chief Complaint: Headache Stated Complaint: headache Time Seen by Provider: 03/18/25 11:06 Source: patient Mode of arrival: ambulatory Limitations: no limitations History of Present Illness HPI Narrative: this is a 44-year-old female with no significant past medical history presents with a 4 day history of headache with some mild dizziness after he was head- butted by the family dog, patient did not lose consciousness currently no nausea vomiting no frontal had bruising where she had the injury no blurry vision headache is about a 4/10 has tried [id number] medication. No neurological deficits no fever chills no neck pain or neck stiffness. MD elicited complaint: headache Pertinent past history: recent trauma Onset (ago): day(s) Onset description: gradually Severity: mild Related Data Allergies Allergy/AdvReac Type Severity Reaction Status Date / Time No Known Allergies Allergy Verified 08/12/24 08:20 Review of Systems Review of Systems: All systems reviewed & are unremarkable except as noted in HPI and below PMFSH Past Medical History Medical History Anxiety Hypertension Obstructive sleep apnea Surgical History Surgical History H/O ventral hernia repair Repair 2 cm ventral hernia, small bowel resection with anastomosis 02/03/23 History of foot surgery Removal bone spur. History of cholecystectomy History of tonsillectomy Family History Family History Mother Diabetes mellitus Anxiety Depression Arthritis Grandparent Cancer Father Stomach cancer Social History Social History Social History: Surrogate medical decision maker: Cecilio Martinez, significant other. Code status: Full code. Smoking status: Current some day smoker Tobacco type: cigarettes Alcohol intake: current Drinks per week: 8 Substance use: never Lack of Transportation: No Lack of Food: Never True Current Housing: I Have Housing Concerned About Future Housing: No Difficulty Paying Gas/Electric Bills: No Difficulty Paying for Meds: No Currently Unemployed: No Education: Trade/Vocational Certificate Difficulty w/ Childcare or Family Care: No Living arrangements: with family Occupation/Education: occupation Additional occupation/education comments: [employer] Spiritual care concerns: No Exam Const: General: healthy appearing and no acute distress Nutritional Appearance: well nourished Orientation/consciousness: patient oriented x3 Limitations: no limitations HENMT: Head: normal to inspection Ears: external ears normal Face/Nose/Sinus: Normal external nose present Face and sinus: normal facial exam Eyes: Conjunctivae: conjunctivae normal Pupils: Equal, round and reactive pupils present EOM: EOMs intact bilaterally Direct Ophthalmoscopy: no photophobia Neck: Neck: normal visual inspection Chest: Chest palpation & inspection: normal inspection of the chest Resp: Effort & Inspection: normal respiratory effort Auscultation: clear to auscultation bilaterally Cardio: Rate: regular rate Rhythm: regular rhythm GI: GI Palp: Yes Soft to palpation Auscultation: normal bowel sounds Back/Spine/Pelvis: Back: no CVA tenderness Skin: General skin exam: normal color Rashes: no rashes Wounds: no wounds Neuro: General: patient oriented x3, moves all extremities, no meningeal signs, no focal motor deficits and CN's II-XI intact bilaterally Cranial nerves: Yes Nystagmus not present Speech: normal speech Gait exam (Neuro): Normal gait present Course Course Emergency Course: Patient pain level about a 4/10 decided against taking any medications here in the ER for pain, obtain a CT scan and reviewed with no acute intracranial abnormalities. Vital Signs Vital signs: Vital Signs Temperature 36.6 C 03/18/25 11:00 Pulse Rate 03/18/25 11:00 Respiratory Rate 03/18/25 11:00 Blood Pressure 161/103 H 03/18/25 11:00 Pulse Oximetry 03/18/25 11:00 Oxygen Delivery Room Air 03/18/25 11:00 Temperature 36.6 C 03/18/25 11:00 Pulse Rate 03/18/25 11:00 Respiratory Rate 03/18/25 11:00 Blood Pressure 161/103 H 03/18/25 11:00 Pulse Oximetry 100 03/18/25 11:00 Oxygen Delivery Room Air 03/18/25 11:00 Critical Care Time Critical Care Time Critical Care Time: No Discharge Plan Discharge Clinical Impression: Mild closed head injury Qualifiers: Encounter type: initial encounter Qualified Code(s): S09.90XA - Unspecified injury of head, initial encounter Patient Disposition: Home Condition: Stable Instructions: Antibiotic Form, Concussion (ED), Head Injury (ED) Additional Instructions: advised patient to limit screen time, limit strenuous activity x1 week follow with primary care physician within 1 week further evaluation and treatment can take Tylenol or Motrin as needed. Patient Language: Pashto Prescriptions: No Action varenicline tartrate [Chantix Starting Month Box] 0.5 mg (11)- 1 mg (42) tablets,dose pack See Rx Instructions PO PER PKG DIR Qty: 53 0RF Rx Instructions: PO PER PKG DIR varenicline tartrate [Chantix] 1 mg tablet 0.5 mg PO BID Qty: 10 0RF amlodipine 5 mg tablet See Rx Instructions .ROUTE .COMPLEX Qty: 90 3RF Dose Instruction: TAKE 1 TABLET BY MOUTH DAILY Rx Instructions: TAKE 1 TABLET BY MOUTH DAILY atorvastatin 80 mg tablet See Rx Instructions .ROUTE .COMPLEX Qty: 90 3RF Dose Instruction: TAKE 1 TABLET BY MOUTH DAILY AT BEDTIME Rx Instructions: TAKE 1 TABLET BY MOUTH DAILY AT BEDTIME lisinopril-hydrochlorothiazide 20-25 mg tablet See Rx Instructions .ROUTE .COMPLEX Qty: 90 3RF Dose Instruction: TAKE 1 TABLET BY MOUTH DAILY Rx Instructions: TAKE 1 TABLET BY MOUTH DAILY sertraline 50 mg tablet See Rx Instructions .ROUTE .COMPLEX Qty: 90 3RF Dose Instruction: TAKE 1 TABLET BY MOUTH DAILY Rx Instructions: TAKE 1 TABLET BY MOUTH DAILY omeprazole 40 mg capsule,delayed release(DR/EC) See Rx Instructions .ROUTE .COMPLEX Qty: 90 3RF Dose Instruction: TAKE 1 CAPSULE BY MOUTH DAILY Rx Instructions: TAKE 1 CAPSULE BY MOUTH DAILY tizanidine 6 mg capsule See Rx Instructions .ROUTE .COMPLEX Qty: 90 0RF Dose Instruction: TAKE 1 CAPSULE BY MOUTH DAILY AT BEDTIME FOR MUSCLE SPASTICITY Rx Instructions: TAKE 1 CAPSULE BY MOUTH DAILY AT BEDTIME FOR MUSCLE SPASTICITY Follow-up/Referrals: Marilyn Castañeda, [employer]IST[employer] [Primary Care Provider] -
--- OUTSIDE RECORDS SUMMARY | 2025-03-18 11:48 | XMS_ITS | Data Portability ---
Author Organization [place] Tiff BISWAS Address [address] [facility] [place] [address] Care Team Providers Care Wood Model Builder Name Role Phone ALFONZO ZAMARRIPA Primary Care Provider Assessment Encounter Date Assessment Date Assessment LastModified by Organization Details LastModified Time 03/02/2020 03/02/2020 telemed RTC 3mo Blood tests in 1-2mo Not available 03/02/2020 17:04:53 Plan of Treatment Reminders Order Date Submit Date Provider Last Modified By Organization Details Last Modified Time Details Appointments None recorded. Lab lipid panel, serum 2020 021 RALPH LABDIANA, [address] [place] [address], [facility] [address], [place], [address], 1 03:01:48 CMP, serum or plasma 2020 021 CHRIS [facility]OBERT, [facility], [facility] [address], [place], [address], 1 03:01:49 vitamin D, 25-hydrox y, total, serum 2020 021 RALPH LABROBERT, [address] [place] [address], [address], [place], [address], 1 03:01:49 CBC w/ auto diff 2020 021 RALPH LESLIE, [address] [place] [address], [address], [place], [address], 1 03:01:49 TSH, ultra-sen sitive, serum 2020 CHRIS [facility], [address], [address], [place], [address], 1 03:01:49 HbA1c (hemoglob in A1c), blood 2020 CH[facility]IS [facility], [facility] [address], [address], [place], [address], 1 03:01:49 microalbu min/creat inine, mass ratio, urine 2020 CHRIS [facility], [address] [place], [place] [address], [address], [place], [address], 1 03:01:50 CBC w/ auto diff 2019 CHRIS [facility], [address] [place], [place] [address]j[address], [address], [place], [address], 1 03:03:56 CMP, serum or plasma 2019 021 [facility], [facility] [address], [address], [place], [address], 1 03:03:57 lipid panel, serum 2019 CHRIS [facility], [address] [facility] [address], [address], [place], [address], 1 03:03:57 TSH, ultra-sen sitive, serum 2019 CHRIS [facility], [address] [place], [place] [address], [address], [place], [address], 1 03:03:58 HbA1c (hemoglob in A1c), blood 2019 021 CHRIS PATELVARP, [facility] [address] [address], [address], [place], [address], 1 03:03:58 microalbu min/creat inine, mass ratio, urine 2019 021 [facility], [address] [place], [place] [address]j[address], [address], [place], [address], 1 03:03:58 ferritin, serum or plasma 2019 021 [facility], [address] [place], [place] [address], [address], [place], [address], 1 03:03:55 magnesium , serum or plasma 2019 021 [facility], [address] [place] [address], [address], [place], [address], 1 03:03:55 vitamin D, 25-hydrox y, total, serum 2019 021 [facility], [address] [place], [place] [address], [address], [place], [address], 1 03:03:56 SARS CoV 2 RNA (COVID-19 ), QL, loading supervisor-PCR, respirato ry specimen - [place] 2:30 2019 020 [facility] ([facility]), [address], [place], [address], 0 17:21:36 vitamin D, 25-hydrox y, total, serum 2019 020 [facility], [address] [place] [address] [address], [address], [place], [address], 0 17:05:06 CBC w/ auto diff 2019 020 CHRIS [facility], [address] [facility], [address], [place], [address], 0 17:05:06 CMP, serum or plasma 2019 020 [facility], [address] [place] [address], [address], [place], [address], 0 13:07:06 lipid panel, serum 2019 020 [facility], [address] [place] [address], [address], [place], [address], 0 13:07:19 HbA1c (hemoglob in A1c), blood 2019 020 [facility], [address] [place] [address], [address], [place], [address], 0 13:07:29 TSH, ultra-sen sitive, serum 2019 020 CHRIS [facility], [address] [place] [address], [address], [place], [address], 0 17:05:06 microalbu min/creat inine, mass ratio, urine 2019 020 CHRIS [facility], [address] [place] [address], [address], [place], [address], 0 17:05:05 Referral sleep medicine referral 2020 021 weston Todd Rai, [address] [facility] , [address], [place], [address], 1 08:42:47 Procedures None recorded. Surgeries None recorded. Imaging None recorded. Medication Orders topiramat e 50 mg tablet 2020 021 [facility] [place] [address] [place], [address], 1 16:09:06 famotidin e 20 mg tablet 2020 021 [facility] [place] [address] [place], [address], 1 16:09:06 sertralin e 25 mg tablet 2019 020 [facility] [place] [address] [place], [address], 0 14:30:09 tizanidin e 4 mg tablet 2019 [facility] [place] [address] [place], [address], 0 14:30:03 famotidin e 20 mg tablet 2019 020 [facility] [place] [address] [place], [address], 0 14:30:07 Flonase Allergy Relief 50 mcg/actua tion nasal spray,arabella pension 2018 019 alicia [facility], [address] [place] [address], [address], 0 15:45:36 amoxicill in 875 mg-potass ium clavulana te 125 mg tablet 2018 019 [facility], [address] [place], [address], 0 14:00:59 Patient TargetsNo targets recorded. Patient Instructions Encounter Date Encounter Id Patient Instructions Last Modified By Organization Details Last Modified Time 08/18/2019 [id number] Acute Sinusitis: Care Instructions Not available 08/18/2019 15:32:16 learning about h igh blood pressure Not available 08/19/2019 09:10:16 03/02/2020 [id number] deciding about u sing medicines to quit smoking Not available 03/02/2020 17:04:57 Quitting Tobacco : Care Instructions Not available 03/02/2020 17:04:57 gastroesophageal reflux disease (GERD): care instructions Not available 03/02/2020 17:04:58 learning about h igh blood pressure Not available 03/02/2020 17:04:58 high cholesterol : care instructions Not available 03/02/2020 17:04:57 09/06/2020 [id number] allergies: care instructions ssuthan Not available 09/06/2020 14:29:30 managing your allergies: care instructions ssuthan Not available 09/06/2020 14:29:29 deciding about u sing medicines to quit smoking ssuthan Not available 09/06/2020 14:29:30 Quitting Tobacco : Care Instructions ssuthan Not available 09/06/2020 14:29:30 learning about h igh blood pressure ssuthan Not available 09/06/2020 14:29:30 01/16/2021 [id number] When You Want to Lose Weight: Care [...] CoV 2 RNA (COVI D-19) , QL, loading supervisor-P CR, respi rator y speci men sars - cov - 2 PCR NEGATI VE mL Not Available [facility] (Lab) [address] [facility], [place], [address], 06/29/2020 17:21:36 06/28/20 20 06/28/2020 SARS CoV 2 RNA (COVI D-19) , QL, loading supervisor-P CR, respi rator y speci men covidcom1 [...] of this test metho d. Not Available [facility] (Lab) [address] [facility], [place], [address], 06/29/2020 17:21:36 06/28/20 20 06/28/2020 SARS CoV 2 RNA (COVI D-19) , QL, loading supervisor-P CR, respi rator y speci men covidcom2 Posit curry resul ts are indic ative of the prese nce of SARS- CoV-2 RNA and do not rule out bacte rial infec tion or co-in fecti on with other virus es. Not Available [facility] (Lab) [address] [facility], [place], [address], 06/29/2020 17:21:36 06/28/20 20 06/28/2020 SARS CoV 2 RNA (COVI D-19) , QL, loading supervisor-P CR, respi rator y speci men covidcom3 Test resul ts shoul d be used along with other clini cherelle obser vatio ns, patie nt histo ry, epide miolo gical infor matio n and labor atory data in frank wong the diagn osis. Not Available [facility] (Lab) [address] [facility], [place], [address], 06/29/2020 17:21:36 06/28/20 20 06/28/2020 SARS CoV 2 RNA (COVI D-19) , QL, loading supervisor-P CR, respi rator y speci men covidcom4 This test has recei kirk FDA Emerg ency Use Autho rizat ion and has been verif ied by [facility] . This test is only autho [...] or revok ed soone r. Not Available [facility] (Lab) [address] [place], [address], 06/29/2020 17:21:36 06/28/20 20 06/28/2020 SARS CoV 2 RNA (COVI D-19) , QL, loading supervisor-P CR, respi rator y speci men covidcom5 [facility] is certi fied under CLIA- 88 as quali fied to perfo rm high compl exity testi ng. This testi ng was perfo rmed in the [facility] [place] [place] [address] (CLIA Licen se #[id number] 5, CAP #[id number], AU-ID #[id number]). Not Available [facility] (Lab) [address] [place], [address], 06/29/2020 17:21:36 06/28/20 20 06/28/2020 SARS CoV 2 RNA (COVI D-19) , QL, loading supervisor-P CR, respi rator y speci men covidcom6 Facts heet for healt hcare provi ders: https ://ww w.fda .gov/ media /1362 56/do wnloa d Facts heet for patie nts: https ://ww w.fda .gov/ media /1362 57/do wnloa d Not Available [facility] (Lab) [address], [place], [address], 06/29/2020 17:21:36 Result Notes None recorded. Problems Name Problem SNOMED Code Status Onset Date Resolution Date Notes Provider Name and Address Organization Details Recorded Time Episodic chronic alcoholis m 587369423 Active 2019 Alfonzo Zamarripa MD Attn: Accounting, [address] [place], [place], [address] [place] [address] - [facility] 0 14:27:24 Gastroeso phageal reflux disease without esophagit is 987283227 Active 2019 Alfonzo Zamarripa MD Attn: Accounting, [address] [place], [place], [address] [place] [address] [place] [facility] 0 14:27:29 Cramp in lower leg associate d with rest 768538964 Active 2019 Alfonzo Zamarripa MD Attn: Accounting, [address] [place], [address] [place] [address] [place] [facility] 0 14:27:31 Allergic rhinitis 78498955 Active 2019 Alfonzo Zamarripa MD Attn: Accounting, [address] [place], [place], [address] [place] [address] [place] [facility] 0 14:27:32 Mixed anxiety and depressiv e disorder 419567130 Active 2019 Alfonzo Zamarripa MD Attn: Accounting, [address] [place], [address] [place] [address] [place] - [facility] 0 14:27:34 Hyperchol esterolem ia 36392413 Active 2019 Alfonzo Zamarripa MD Attn: Accounting, [address] [place], [place], [address] [place] [address], [facility] - [facility] 0 14:27:35 Obesity 869342310 Active 2020 Alfonzo Zamarripa MD Attn: Accounting, [address] [place], [place], [address] [place] [address], [facility] - SI 1 16:05:40 Obstructi ve sleep apnea syndrome 79441722 Active 2020 Alfonzo Zamarripa MD Attn: Accounting, [address] [place], [address] [place] [address], [facility] - [facility] 1 16:06:43 Gastroeso phageal reflux disease 776137697 Completed 09/06/2020 Alfonzo Zamarripa MD Attn: Accounting, [address] [place], [place], [address] [place] [address], [facility] - [facility] 0 14:27:50 Essential hypertens ion 07295717 Active SHEKHAR Garcia Attn: Accounting, [address] [place], [place], [address] [place] [address], [facility] - [facility] 6 13:00:49 Tobacco dependenc e, continuou s 747378753 Completed 03/02/2020 Mary Ellen Vaugh[place], [place] - [place] 0 17:02:27 Hyperlipi demia 25074101 Completed 09/06/2020 Alfonzo Zamarripa MD Attn: Accounting, [address] [place], [address] [place] [address], [facility] - [facility] 0 14:27:54 Moderate depressio n 424785081 Completed 09/06/2020 Alfonzo Zamarripa MD Attn: Accounting, [address] [place], [place], [address] [place] [address], [facility] - [facility] 0 14:28:02 Tobacco dependenc e syndrome 63380411 Active SHEKHAR Garcia Attn: Accounting, [address] [place], [place], [address] [place] [address], [facility] - [facility] 6 13:00:49 Condyloma acuminata of vulva 530552193 Active SHEKHAR Garcia Attn: Accounting, [address] [place], [place], [address] [place] [address], [facility] - [facility] 6 11:25:31 Acute sinusitis 29754959 Completed 09/06/2020 Alfonzo Zamarripa MD Attn: Accounting, [address] [place], [address] [place] [address] - SI 0 14:27:41 Atypical squamous cells of undetermi cris significa nce on cervical Papanicol aou smear 182476665 Active SHEKHAR Garcia Attn: Accounting, [address] [place], [place], [address] [place] [address] - [facility] 6 11:25:31 HPV - Human papilloma virus test positive Active SHEKHAR Garcia Attn: Accounting, [address] [place], [place], [address] [place] [address], [facility] - [facility] 6 11:25:31 Restless legs 67041230 Completed 09/06/2020 Alfonzo Zamarripa MD Attn: Accounting, [address] [place], [address] [place] [address] - [facility] 0 14:28:06 Vitamin D deficienc y 27477622 Completed 09/06/2020 Alfonzo Zamarripa MD Attn: Accounting, [address] [place], [address] [place] [address], [facility] - SI 0 14:28:11 Polycysti c ovaries Active 2016 Anahi Lui MA [facility], [place] - [facility] 7 10:48:34 Problem Notes None recorded. Procedures Surgical History Date Name Laterality Status Provider Name and Address Organization Details Recorded Time 06/17/20 19 Cryotherapy - ELECTRICAL DESIGN ENGINEER completed Francisco Marrero MD Attn: Accounting, [address] [place], [place], [address] [place] [address], [facility] - SI 06/17/2019 15:24:30 08/02/20 17 IUD Insertion completed Francisco Marrero MD Attn: Accounting, [address] [facility], [place], [address], [facility] - [facility] 08/02/2017 16:22:54 11/19/19 17 Cryotherapy - ELECTRICAL DESIGN ENGINEER completed Reena Daley [facility] Attn: Accounting, [address] [facility], [place], [address], [facility] - SI 11/19/2016 12:18:28 11/19/19 17 Other completed Anahi Lui MA [place] - [place] 11/19/2016 11:33:49 10/03/19 17 Colposcopy completed Reena Daley [facility] Attn: Accounting, [address] [facility], [place], [address], [facility] - SI 10/03/2016 16:25:51 07/17/20 16 Date of Last Pap Smear completed nAahi Lui MA [facility] 07/17/2016 15:50:16 01/09/20 16 Colposcopy completed Reena Daley [facility] Attn: Accounting, [address] [facility], [place], [address], [facility] - SI 01/09/2016 15:45:43 01/09/20 16 Colposcopy completed Anahi Andrea [facility] 01/09/2016 14:45:10 Tonsillectomy completed Joanna Augustine [facility] 08/24/2014 11:06:47 Cholecystectomy completed Joanna Augustine [facility] 08/24/2014 11:06:47 Imaging Results None recorded. Procedure [...] Relief 50 mcg/actuati on nasal spray,suspe nsion [place] 2 sprays every day by intranasa l route. 03/02 completed Not Available Not Available Not Available Vitals Date Recorded Body height Provider Name an d Address Organization Details Last Updated DateTime 01/16/2021 160.02 cm FLETCHER Nielsen [place] - [facility] 1 15:32:16 Date Recorded Body height Provider Name an d Address Organization Details Last Updated DateTime 03/02/2020 160.02 cm Pauline Lagos MA [facility] 15:44:48 Date Recorded Body height Body mass index (BMI) Body weight Heart rate Respiratory rate Systolic blood pressure Diastolic blood pressure Systolic blood pressure Diastolic blood pressure Provider Name and Address Organization Details Last Updated DateTime 9 160.02 cm 34.2 kg/m2 61706.7 3 g 76 /min 16 /min 160 mm[Hg] 98 mm[Hg] 158 mm[Hg] 98 mm[Hg] Lizeth Francis MA [facility] 9 15:44:34 Date Recorded Body height Provider Name an d Address Organization Details Last Updated DateTime 09/06/2020 160.02 cm Pauline Lagos MA [facility] 12:22:51 Social History Question Answer Notes LastModified by Organizat ion Details LastModified Time Tobacco Smoking Status Current Every [facility] 08/24/2014 11:06:47 Do You Have An Advance Directive? No Information not available 01/16/2021 Are You Blind [...] No Information not available 01/16/2021 Are You Deaf [...] available 08/24/2014 What Is Your Relationship Status? [email or web address] Information not available 08/24/2014 Do You Use Your Seat Belt Or Car Seat Routinely? Yes Information not available 01/16/2021 Do You Have Smoke And Carbon Monoxide Detectors In Your Home? Yes Information not available 01/16/2021 How Much Tobacco Do You Smoke? 1 PPD Information not available 09/06/2020 Do You Use Sunscreen Routinely? Yes Information not available 01/16/2021 On What Date Was Tobacco Cessation Counseling Provided? 09/06/2020 Information not available 09/06/2020 How Many Years Have You Smoked Tobacco? 26 Information not available 09/06/2020 Sex: Unknown Functional Status Question Answer Note LastModified by Organizat ion Details LastModified Time Do you use any illicit or recreational drugs? No Information not available 01/16/2021 What is your level of alcohol consumption? Moderate Information not available 01/16/2021 Are you currently employed? No school Information not available 01/16/2021 Are you able to care for yourself? Yes Information n ot available 01/16/2021 What is your exercise level? None Information not available 01/16/2021 Mental Status Question Answer Note LastModified by Organization D etails LastModified Time Do you feel stressed (tense, restless, nervous, or anxious, or unable to sleep at night)? [id number] Information not available 01/16/2021 Family History Relationship Description Onset Age of this Age Resolved Age Notes LastModified by Organization Details LastModified Time Father Malignant tumor of stomach Autoim mune disord er also Not available 05/01/2016 11:25:38 Father Hypertensive disorder Not available 2015 11:25:38 Father Hyperlipidem ia ssuthan Not available 2019 14:13:17 Paternal Grandmother Malignant neoplasm of ovary Not available 2015 11:25:38 Mother Hypertensive disorder Not available 2015 11:25:38 Mother Diabetes mellitus Mental health issues also Not available 05/01/2016 11:25:38 Brother Bipolar disorder ssuthan Not available 2019 14:13:46 Medical History Condition Response Heart Problems N Other Y High Blood Pressure Y Breast Cancer N Thyroid Problems N Kidney or Bladder Problems N Lung Disease N Depression N Blood Clots N GI Problems N Acne N Eating Disorder N Skin Problems Y Breast Problem N Anemia N Anesthesia Complications N Headaches/Migraines N Anxiety Disorder N Ovarian Cancer N Diabetes N Muscle, Joint, or Bone Problems N Obesity Y Blood Transfusions N Arthritis N Seizures/Epilepsy N Polyps N Infertility N Acid Reflux (GERD) Y Hyperlipidemia Y [...] mL dose 1 completed Uriel Hernandes RN [facility], [facility] 05/15/2021 11:53:40 Tdap 7 completed Not Available [facility] 10/17/2019 02:39:18 Influenza, split virus, quadrivalent, preservative 9 completed Not Available [facility] 10/17/2019 02:47:15 Past Encounters Encounter ID Performer Location Encounter Start Date Encounter Closed Date Diagnosis/Indication Diagnosis SNOMED-CT Code Diagnosis ICD10 Code Diagnosis Note [id number] MATHEW Ordaz-JUANITA Nash (JUAN 122) [address] [place] [address] 08/31/2014 09:42:00 08/31/2014 11:45:25 [id number] MD Isiah Fink (JUAN 205) [address] [place] [address] 05/13/2015 14:37:09 05/16/2015 12:19:33 Adult health examination 131611227 Laboratory test 21253375 Hyperlipidemia 24350182 Essential hypertension 01572968 Moderate depression 826650579 Tobacco de pendence syndrome 84826163 Depression screening 465245753 [id number] Reena Daley [facility] Isiah Nash ([facility] 122) [address] [facility] [place] [address] 06/20/2015 15:53:34 06/21/2015 09:50:36 Venereal disease screening 918988439 Gynecologi c examination 72119206 Uses oral contraception 5088131 Condyloma acuminata of vulva 929939620 [id number] MD Isiah Fink ([place] [address]) [address] [facility] [place] [address] 07/18/2015 16:38:49 07/18/2015 18:18:30 Moderate depression 562753484 F32.1 Gastroesop hageal reflux disease 018533849 K21.9 [id number] MD Isiah Fink ([place] [address]) [address] [facility] [place] [address] 08/19/2015 09:55:18 08/19/2015 10:49:47 Acute sinusitis 55945569 J01.10 [id number] Reena Daley [facility] Isiah Nash ([place] [address]) [address] [facility] [place] [address] 12/06/2015 15:38:44 12/13/2015 12:18:22 Atypical squamous cells of undetermined significance on cervical Papanicolaou smear 101652019 R87.610 [id number] Reena Daley [facility] Isiah Nash ([place] [address]) [address] [facility] [place] [address] 01/09/2016 14:35:00 01/09/2016 16:27:00 HPV - Human papillomavirus test positive 243137140 R87.619 [id number] SHEKHAR Garcia ([place] [address]) [address] [facility] [place] [address] 03/26/2016 15:46:26 03/26/2016 17:02:31 Restless legs 58750338 G25.81 [id number] SHEKHAR Garcia ([facility] 205) [address] [facility] [place] [address] 05/01/2016 10:54:00 05/01/2016 18:56:20 Gastroesophageal reflux disease 021612772 K21.9 Essential hypertension 90932373 I10 Moderate depression 3104 16837 F32.1 Restless legs 60258945 G 25.81 Tobacco de pendence syndrome 44601837 F17.290 Hyperlipidemia 34510736 E78.5 [id number] Reena Dlaey [facility] ([facility] 122) [address] [facility] [place] [address] 07/17/2016 15:48:08 07/18/2016 10:00:07 Gynecologic examination 65674989 Z01.419 215037 Surveillan ce of oral contraception 458923723 Z30.41 Uses oral contraception 1135106 Z79.3 [id number] Reena Daley [facility] ([facility] 122) [address] [facility] [place] [address] 10/03/2016 15:38:28 10/08/2016 10:52:56 HPV - Human papillomavirus test positive 893781210 R87.619 detection examination 92258381 Z32.00 [id number] Celio Babin MD [facility] ([facility] 205) [address] [facility] [place] [address] 11/05/2016 14:18:18 11/06/2016 10:32:02 Essential hypertension 69857834 I10 Counseled on HTN and medication -will continue current medication . Encouraged to monitor blood pressures with goal <140/90. Encouraged healthy diet and exercise. Counseled on smoking cessation. Gastroesop hageal reflux disease 736205958 K21.9 Counseled on GERD and medication (reviewed with patient side effects and need to come off medication for prolonged use-reques ts to continue medication at this time). Encouraged low fat diet, alcohol, spicy greasy foods and caffeinate d beverages. Keep head of bed elevated at night. Do not eat 2-3 hours prior to bedtime. Moderate depression 3104 60730 F32.1 Counseled on depression and medication -will continue current dose at this time. Counseled on seeking help from 911 or go to ER for suicidal or homicidal thoughts. Hypercholesterolemia 136 17349 E78.2 Counseled on hyperlipid emia, needed dietary changes/ex ercise and medication (side effects reviewed)- will fasting lab work Vitamin D deficiency 347 02868 E55.9 Obesity 744578343 E66.9 [id number] Reena Daley [facility] Isiah Nash ([facility] 122) [address] [place] [address] 11/19/2016 11:20:27 11/20/2016 11:54:13 test negative 024519399 Z32.02 Abnormal c ervical Papanicolaou smear 399024285 R87.746 [id number] MD Isiah Montana ([facility] 205) [address] [place] [address] 12/20/2016 14:37:04 12/21/2016 10:31:42 Acute right otitis media 309223523 H66.91 Counseled on otitis media and medication . Instructed to take all of antibiotic until gone-reinf orced the importance of compliance with antibiotic -Tylenol/I buprofen as needed. Acute sinusitis 80068066 J01.90 Counseled on sinusitis and medication s/antibiot ic use. Ibuprofen/ Tylenol for pain. Encouraged to increase fluid intake and encouraged to stop smoking. Humidifier as needed. Nasal saline wash as needed, continue Mucinex [id number] MD Isiah Montana ([facility] 205) [address] [place] [address] 02/11/2017 08:18:18 02/11/2017 14:39:23 Hypersomnia with sleep apnea 58197756 G47.10 Will send for sleep study-enco urage good sleep hygiene, encourage healthy diet and exercise [id number] Reena Daley [facility] Isiah Nash ([facility] 122) [address] [place] [address] 03/19/2017 15:43:05 03/20/2017 08:51:41 HPV - Human papillomavirus test positive 660972680 R87.566 [id number] MD Isiah Montana ([facility] 205) [address] [place] [address] 05/02/2017 08:24:18 05/02/2017 10:58:22 Adult health examination 816374489 Z00.00 Counseled on the importance of healthy diet and exercise for weight loss. Fasting lab work. Advised adequate calcium intake through dairy and dark leafy vegetables . Adequate hydration and decrease soda intake. Advised on immunizati ons-given Tdap today Obesity 456493865 E66.9 Counseled on weight loss-encou rage heart healthy diet and increasing exercise-p ortion control, decreasing processed foods HIV screening 323265200 Z11.4 Essential hypertension 00800833 I10 Advised to continue home medication s-monitor bp if continuous ly > 140/90 to call office Administra tion of diphtheria, pertussis, and tetanus vaccine 364264160 Z23 [id number] MD Isiah Montana ([facility] 205) [address] [place] [address] 05/09/2017 14:38:07 05/10/2017 09:02:19 Abrasion of skin of lower limb 250207915 S80.812A [id number] MD Isiah Yoo ([facility] 122) [address] [facility] [place] [address] 07/09/2017 14:27:09 07/09/2017 16:37:34 Contraception care management 334809862 Z30.9 Discontinu e OCPsDesire s Mirena IUD, will contact insurance company to see if device is covered. Otherwise she will use depo-prove ra. [id number] MD Isiah Yoo ([facility] 122) [address] [place] [address] 08/02/2017 15:24:43 08/05/2017 15:52:22 Insertion of intrauterine contraceptive device 52249577 Z30.430 RTC in 4 weeks for a IUD string check [id number] MD Isiah Montana ([facility] 205) [address] [place] [address] 09/10/2017 08:30:35 09/10/2017 14:22:07 Essential hypertension 43778866 I10 Counseled on HTN and medication -will continue current medication . Encouraged to monitor blood pressures with goal <140/90. Encouraged healthy diet and exercise. Counseled on smoking cessation. Gastroesop hageal reflux disease 812734255 K21.9 Counseled on GERD and medication (reviewed with patient side effects and need to come off medication for prolonged use-reques ts to continue medication at this time). Encouraged low fat diet, alcohol, spicy greasy foods and caffeinate d beverages. Keep head of bed elevated at night. Do not eat 2-3 hours prior to bedtime. Moderate depression 3104 96928 F32.1 Counseled on depression and medication -will continue current dose at this time. Counseled on seeking help from 911 or go to ER for suicidal or homicidal thoughts. Hypercholesterolemia 136 72364 E78.2 Counseled on hyperlipid emia, needed dietary changes/ex ercise and medication (side effects reviewed)- will fasting lab work Vitamin D deficiency 347 66136 E55.9 [id number] MD Isiah Yoo [facility] ([facility] 122) [address] [facility] [address] [place] [address] 11/22/2017 09:23:09 11/25/2017 14:15:54 Body mass index 30+ - obesity 453564701 Z68.32 Surveillan ce of intrauterine device contraception done 9442410732 36273 Z30.40 Mirena IUD strings seen [id number] SHEKHAR Garcia 14 IM [address] [facility] [address] [place] [address] 03/06/2018 14:40:38 03/07/2018 09:47:41 Acute sinusitis 47487091 J01.90 Counseled on sinusitis and medication s/antibiot ic use. Ibuprofen/ Tylenol for pain. Encouraged to increase fluid intake and encouraged to stop smoking. Humidifier as needed. Nasal saline wash as needed, continue Mucinex Serous otitis media 8032 7007 H65.93 [id number] MD Isiah Montana 14 IM [address] [facility] [address] [place] [address] 04/30/2018 08:53:27 04/30/2018 15:37:27 Essential hypertension 42969731 I10 Counseled on HTN and medication -will continue current medication . Encouraged to monitor blood pressures with goal <130/80. Encouraged healthy diet and exercise. Counseled on smoking cessation. f/u 6 months Gastroesop hageal reflux disease 084237825 K21.9 Counseled on GERD and medication (reviewed with patient side effects and need to come off medication for prolonged use-reques ts to continue medication at this time). Encouraged low fat diet, alcohol, spicy greasy foods and caffeinate d beverages. Keep head of bed elevated at night. Do not eat 2-3 hours prior to bedtime. Moderate depression 3104 55703 F32.1 Counseled on depression and medication -will continue current dose at this time. Counseled on seeking help from 911 or go to ER for suicidal or homicidal thoughts. Hypercholesterolemia 136 11579 E78.2 Counseled on hyperlipid emia, needed dietary changes/ex ercise and medication (side effects reviewed)- will fasting lab work Renewal of prescription 463629735 Z76.0 [id number] MD Isiah Yoo 14 OB [address] [facility] [address] [place] [address] 10/06/2018 09:09:24 10/06/2018 14:54:39 Gynecologic examination 38657056 Z01.419 CBE and pap smear performed Screening mammography 24 770010 Z12.31 Condyloma acuminatum of the anogenital region 580237764 A63.0 Will RTC for removal. [id number] MD Isiah Montana 14 IM [address] [facility] [address] [place] [address] 11/03/2018 08:39:13 11/04/2018 10:04:01 Obstructive sleep apnea of adult 8597562218 103 G47.33 Continue CPAP-no O2 bleed in needed Administra tion of influenza vaccine 00583493 Z23 Acute sinusitis 86755622 J01.90 Counseled on sinusitis and medication s/antibiot ic use. Ibuprofen/ Tylenol for pain. Encouraged to increase fluid intake and encouraged to stop smoking. Humidifier as needed. Nasal saline wash as needed, continue Mucinex Essential hypertension 35835804 I10 Counseled on HTN and medication -will continue current medication . Encouraged to monitor blood pressures with goal <130/80. Encouraged healthy diet and exercise. Counseled on smoking cessation. f/u 6 months Gastroesop hageal reflux disease 431787465 K21.9 Counseled on GERD and medication (reviewed with patient side effects and need to come off medication for prolonged use-reques ts to continue medication at this time). Encouraged low fat diet, alcohol, spicy greasy foods and caffeinate d beverages. Keep head of bed elevated at night. Do not eat 2-3 hours prior to bedtime. Moderate depression 3104 88756 F32.1 Counseled on depression and medication -will continue current dose at this time. Counseled on seeking help from 911 or go to ER for suicidal or homicidal thoughts. Hypercholesterolemia 136 10392 E78.2 Counseled on hyperlipid emia, needed dietary changes/ex ercise and medication (side effects reviewed)- will fasting lab work Renewal of prescription 033202623 Z76.0 [id number] MD Isiah Montana 14 IM [address] [facility] [place] [address] 01/05/2019 08:54:50 01/06/2019 14:52:14 Obesity 314310352 E66.9 Counseled on weight loss-encou rage heart healthy diet and increasing exercise-p ortion control, decreasing processed foods Migraine 33406611 G43.90 9 Will give Imitrex for any further migraine-i f notes any new issues to return for further evaluation -have eyes checked [facility] 627322149 Z00.00 [id number] MD Isiah Montana [address] [facility] [place] [address] 02/04/2019 08:36:35 02/05/2019 08:56:56 Obesity 395998110 E66.9 Counseled on weight loss, continue to use phentermin e in manner being used- encourage heart healthy diet and increasing exercise-p ortion control, decreasing processed foods Vitamin D deficiency 347 64575 E55.9 [id number] MD Isiah Montana [address] [facility] [place] [address] 06/04/2019 13:50:13 06/05/2019 09:23:55 Restless legs 78489697 G25.81 Change to requip for restless legs-stay hydrated, stretch legs Gastroesop hageal reflux disease 563222387 K21.9 Counseled on GERD and medication (reviewed with patient side effects and need to come off medication for prolonged use-reques ts to continue medication at this time). Encouraged low fat diet, alcohol, spicy greasy foods and caffeinate d beverages. Keep head of bed elevated at night. Do not eat 2-3 hours prior to bedtime. Essential hypertension 73393656 I10 Counseled on HTN and medication -will continue current medication . Encouraged to monitor blood pressures with goal <130/80. Encouraged healthy diet and exercise. Counseled on smoking cessation. f/u 6 months Hypercholesterolemia 136 37226 E78.2 Counseled on hyperlipid emia, needed dietary changes/ex ercise and medication (side effects reviewed)- will fasting lab work Renewal of prescription 373211284 Z76.0 Moderate depression 3104 67862 F32.1 Counseled on depression and medication -will continue current dose at this time. Counseled on seeking help from 1 or go to ER for suicidal or homicidal thoughts. Tobacco de pendence syndrome 00904440 F17.939 [id number] MD Isiah Yoo 14 OB [address] [facility] [place] [address] 06/17/2019 14:20:59 06/18/2019 08:30:03 Genital warts 123126090 A63.0 Cryotherap y performed in the office [id number] MD Isiah COTO 14 IM [address] [facility] [place] [address] 08/18/2019 14:54:09 08/19/2019 12:19:21 Acute sinusitis 98912402 J01.90 Counseled on sinusitis and medication s/antibiot ic use. Ibuprofen/ Tylenol for pain. Encouraged to increase fluid intake and encouraged to stop smoking. Humidifier as needed. Nasal saline wash as needed, use Coricidan hbp due to bp elevated Essential hypertension 60797254 I10 most likely elevated today due to illness and use of decongesta nt [id number] MD Isiah COTO 14 IM [address] [facility] [place] [address] 03/02/2020 08:48:51 03/02/2020 18:34:30 Vitamin D deficiency 86425657 E55.9 on MVI. Essential hypertension 23408272 I10 BP fluctuatin g. Check BP at home. Continue Lisinopril -HCTZ. Hyperlipidemia 37974443 E78.5 on statin Tobacco de pendence syndrome 52046131 F17.200 not ready, has chantix Moderate depression 3104 48781 F32.1 No significan t psych history. Father 5 years ago, started on Zolof then.Pt would like to wean off - ok. Gastroesop hageal reflux disease 776524072 K21.9 stable on PPI. Consider EGD. 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 Avoid known allergens. Cramp in l ower leg associated with rest 567877099 G47.62 Agree to consider tizanidine at bedtime PRN (stop ropirinole ) Gastroesop hageal reflux disease without esophagitis 541977640 K21.9 Loose weight , avoid soda, spicy stuff, Stop smokingUse medication as prescribed . Long-term drug therapy 584849921 Z79.899 Tobacco de pendence syndrome 10137237 F17.200 Recommend to slow shyanne and quit at the earliest- 1 PPD Episodic c hronic alcoholism 792564170 F10.20 Recommend to slow down and quit the habit [id number] MD Isiah Nazario 14 IM [address] [facility] [address] [place] [address] 01/16/2021 15:29:48 01/17/2021 10:28:31 Hypercholesterolemia 83771048 E78.00 Low cholestrol diet emphasised Ct medication as prescribed Essential hypertension 19039670 I10 Clinically feels well.Low salt diet Gastroesop hageal reflux disease without esophagitis 561568252 K21.9 Loose weight , avoid soda, spicy stuff, Stop smoking Use medication as prescribed . tolerating famotidine Tobacco de pendence syndrome 50621903 F17.200 Recommend to slow shyanne and quit at the earliest- 1 PPD Long-term drug therapy 436229965 Z79.899 Obesity 416876128 E66.9 Recommend to loose weight with diet control and exercise. wants something suppress appetite- try topiramate (Ht 5'3, Wt 200) Obstructiv e sleep apnea syndrome 85591713 G47.33 On auto PAP, no one monitors, will refer to sleep specialist Health Concerns Section Related Observation LastModified by Organization Detai ls LastModified Time None Recorded Concern Status LastModified by Organization Details LastModified Time None Recorded Advance Directives Directive N: Payers Insurance Date Sequence Insurance Name Policy Number Policy Zamora Covered Member ID Zamora Member ID Guarantor Name 03/01/2020 SLIDING FEE SCHEDULE - DISCOUNT Malu De La Rosa 01/16/2021 1 [facility] [id number] Chicho Martinez [id number] Malu De La Rosa 08/18/2019 1 [facility] (PPO) [id number] Malu De La Rosa [id number] Malu De La Rosa 03/01/2020 1 [employer] [id number] Malu De La Rosa [id number] Malu De La Rosa 10/04/2016 1 [facility] (PPO) [id number] Malu De La Rosa [id number] Malu De La Rosa 11/06/2017 1 [employer] [id number] Malu De La Rosa [id number] Malu De La Rosa 10/03/2018 1 [facility] (PPO) [id number] Malu De La Rosa [id number] Malu De La Rosa Notes Date Note [...] throat; no vomiting; no diarrhea; no rash;fatigue;nausea Aura Banal, STRIPPER OPAQUER-C Attn: Accounting,[address] [facility], [place], [address], [facility] 08/19/2019 09:10:39 03/02/20 20 text/htm l pt is calling to get established. Aura pt. Doing well. HTN/HLDNo known cardiac issues.on Lisinopril-HCTZ, pravastatin, ASA Restless legsropinirole helps Depressionstarted on med 5 years ago when father passed.Otherwise no sig history.She would like to wean off med. Mary Ellen aleman, [place] - [place] 03/02/2020 17:05:14 06/28/20 20 text/htm l COVID-19 Symptoms January 2020Reported bypatient.COVID-19 Signs and Symptomscough same; headache same; sore throat same; vomiting or diarrhea improving; fatigue improving WILDA Elam-BC Attn: Accounting,[address] [facility], [place], [address], [facility] [place] 06/28/2020 13:09:55 09/06/20 20 text/htm l Anxiety/DepressionReported [...] visit Alfonzo Zamarripa MD Attn: Accounting,[address] [facility], [place], [address], [facility] 09/06/2020 21:08:36 01/17/20 21 text/htm l Anxiety/DepressionReported [...] visit Alfonzo Zamarripa MD Attn: Accounting,[address] [facility], [place], [address], [place] [facility] 01/16/2021 21:30:54 OBGyn Episode No OBEpisode recorded.
--- OUTSIDE RECORDS SUMMARY | 2025-03-18 11:48 | XMS_ITS | Clinical Summary ---
Author Organization [facility] Address [address] [place] [address] Phone Care Team Providers Care Patrol Mother Name Role Phone LuzmariaNicky mujicathi Mondragon APRN Primary Care Provider Social History Tobacco Use [...] of 3 - 19+ 3-dose series) 1997 Colonoscopy 2023 Colorectal Cancer Screening 2023 SARS-COV-2 Immunization ( season) 2024 05/12/2021, 04/21/2021 Influenza Immunization (Seas on Ended) 2025 Respiratory Syncytial Virus (RSV) Immunization (Adult) (1 - 1-dose 75+ series) 2053 Discussion re Starting/Frequency of Mammograms Discontinued 01/29/2019, 12/29/2018 Human Papillomavirus (HPV) Immunization Aged Out No longer eligible based on patient's age to complete this topic Meningococcal Immunization (ACWY) Aged Out No longer eligible based on patient's age to complete this topic Pneumococcal Immunization Combined Aged Out No longer eligible based on patient's age to complete this topic Rotavirus Immunization Aged Out No lo nger eligible based on patient's age to complete this topic Procedures Procedure Name Priority Date/Time Associated Diagnosis Comments KESHIA MOAR RIGHT UNILATERAL DIGITAL W CAD W JUAN Routine 01/29/2019 8:58 AM CDT Other abnormal and inconclusive findings on diagnostic imaging of breast from Last 3 Months or Most Recently Relevant to Health Maintenance Results * KESHIA MORA RIGHT UNILATERAL DIGITAL W CAD W JUAN (01/29/2019 8:58 AM CDT) Anatomical Region Laterality Modality breast Right Mammography 01/29/2019 8:09 AM CDT Narrative 01/29/2019 10:45 AM CDT - KESHIA MORA RIGHT UNILATERAL DIGITAL W CAD [...] Comparison is made to exam dated: 12/29/2018 [facility]. BREAST TISSUE:There are scattered fibroglandular densities [...] signed by: Tracy Aponte M.D. ll/:01/29/2019 08:54:16 Executive Marketing Assistant: Jojo ALEJO([place])(M), [facility] letter sent: Normal Exam Reading location: [place] BI-RADS: 1 Negative Procedure Note Tracy Aponte MD - 01/29/2019 - KESHIA DONALDG RIGHT UNILATERAL DIGITAL W CAD [...] Comparison is made to exam dated: 12/29/2018 [facility]. BREAST TISSUE:There are scattered fibroglandular densities [...] signed by: Tracy Aponte M.D. ll/:01/29/2019 08:54:16 Executive Marketing Assistant: Jojo RODRIGUEZ)(M), [facility] letter sent: Normal Exam Reading location: [place] BI-RADS: 1 Negative Francisco Marrero [facility] MAMMO ORDERABLES Final Resul t from Last 3 Months or Most Recently Relevant to Health Maintenance Insurance [facility] Care Teams Patrol Mother Relationship Specialty Start Date End Date Aura Brown APRN [address] [place] [address] [place] [address] PCP - General Family Medicine 12/17/18
--- OUTSIDE RECORDS SUMMARY | 2025-03-18 12:21 | XMS_ITS | Clinical Summary ---
Author Organization [facility] Address [address] [place] [address] Phone Care Team Providers Care Caddy Master Name Role Phone LuzmariaNicky mujicathi Mondragon APRN [...] is made to exam dated: 12/29/2018 [facility]. BREAST TISSUE:There are scattered fibroglandular densities [...] signed by: Tracy Aponte M.D. ll/:01/29/2019 08:54:16 Pad Making Machine Operator: Jojo ALEJO([place])(M), [facility] letter sent: Normal Exam Reading location: [...] is made to exam dated: 12/29/2018 [facility]. BREAST TISSUE:There are scattered fibroglandular densities [...] signed by: Tracy Aponte M.D. ll/:01/29/2019 08:54:16 Pad Making Machine Operator: Jojo RODRIGUEZ)(M), [facility] letter sent: Normal Exam Reading location: [place] BI-RADS: 1 Negative Francisco Marrero [facility] MAMMO ORDERABLES Final Resul t from Last 3 Months or Most Recently Relevant to Health Maintenance Insurance [facility] Care Teams Caddy Master Relationship Specialty Start Date End Date Aura Brown APRN [address] [place] [address] [place] [address] PCP - General Family Medicine 12/17/18
== END 2025-03-18 11:50 | disposition home or self-care (01) ==
LOC: CHSED 11:34
PROVIDERS: Emergency Provider Emergency Medicine; PCP Nurse Practitioner Family
DX: S09.90XA Unspecified injury of head, initial encounter (principal); I10 Essential (primary) hypertension; F17.210 Nicotine dependence, cigarettes, uncomplicated; W54.1XXA Struck by dog, initial encounter
CPT/HCPCS: 70450; 99284

== ENCOUNTER 2025-04-15 13:37 | Outpatient (CLI) | payer OTHER, SELFPAY ==
--- OUTSIDE RECORDS SUMMARY | 2025-04-15 13:44 | XMS_ITS | Clinical Summary ---
Author Organization [facility] Address [address] [place] [address] Phone Care Team Providers Care Drilling And Production Superintendent Name Role Phone LuzmariaNicky mujicathi Mondragon APRN [...] Comparison is made to exam dated: 12/29/2018 [facility]. BREAST TISSUE:There are scattered fibroglandular densities [...] signed by: Tracy Aponte M.D. ll/:01/29/2019 08:54:16 Crts: Jojo ALEJO([place])(M), [facility] letter sent: Normal Exam Reading location: [...] Comparison is made to exam dated: 12/29/2018 [facility]. BREAST TISSUE:There are scattered fibroglandular densities [...] signed by: Tracy Aponte M.D. ll/:01/29/2019 08:54:16 Crts: Jojo RODRIGUEZ)(M), [facility] letter sent: Normal Exam Reading location: [place] BI-RADS: 1 Negative Francisco Marrero [facility] MAMMO ORDERABLES Final Resul t from Last 3 Months or Most Recently Relevant to Health Maintenance Insurance [facility] Care Teams Drilling And Production Superintendent Relationship Specialty Start Date End Date Aura Brown APRN [address] [place] [address] [place] [address] PCP - General Family Medicine 12/17/18
[2025-04-15 13:50] LABS: Hematocrit 36.5 % (35.0-49.0); Hemoglobin 11.4 g/dL (12.0-15.0); Immature Granulocyte Percent A 0.4 % (0.0-0.0); Lymphocytes Absolute Auto 2.67 K/mm3 (1.10-4.50); Mean Corpuscular HGB Conc 31.2 g/dL (32-36); Mean Corpuscular Hemoglobin 27.0 pg (27.0-31.0); Mean Corpuscular Volume 86.3 fL (78.0-102.0); Nucleated Red Blood Cells Absolute Auto 0.00 K/mm3 (0.00-0.00); Nucleated Red Blood Cells Perc 0.0 % (0-0.0); Platelet Count Result 379 K/mm3 (150-420); Red Blood Count 4.23 M/mm3 (4.20-5.40); White Blood Count 10.4 K/mm3 (4.8-10.8)
[2025-04-15 14:54] LABS: Alanine Aminotransferase 24 U/L (6-35); Albumin Level 4.3 g/dL (3.5-5.1); Alkaline Phosphatase 65 U/L (38-126); Aspartate Amino Transferase 29 U/L (14-36); Bilirubin,Total 0.4 mg/dL (0.2-1.3); Blood Urea Nitrogen 14 mg/dL (7-17); Carbon Dioxide 26 mmol/L (22-30); Chloride 106 mmol/L (98-107); Cholesterol 197 mg/dL (0-200); Estimated Glomerular Filt Rate > 60; Total Protein 6.9 g/dL (6.3-8.2); Triglycerides 451 mg/dL (<150)
[2025-04-15 15:02] LABS: Anion Gap 6 mmol/L (4-12); Calcium 11.1 mg/dL (8.4-10.2); Glucose 84 mg/dL (65-110); HDL Direct 42 mg/dL; Osmolality Calculated 285 mOsm/kg (285-295); Potassium 4.2 mmol/L (3.4-5.0); Sodium 138 mmol/L (137-145)
[2025-04-15 16:33] LABS: Hemoglobin A1C 5.4 % (<5.7)
== END 2025-04-15 13:38 | disposition home or self-care (01) ==
LOC: CHSLAB 13:38
PROVIDERS: PCP Nurse Practitioner Family; Visit Provider Nurse Practitioner Family
DX: Z13.6 Encounter for screening for cardiovascular disorders (principal); E78.5 Hyperlipidemia, unspecified; E11.9 Type 2 diabetes mellitus without complications; I10 Essential (primary) hypertension; Z79.899 Other long term (current) drug therapy
CPT/HCPCS: 36415; 80053; 80061; 82306; 83036; 85025

== ENCOUNTER 2025-08-14 13:16 | Outpatient (CLI) | payer OTHER, SELFPAY ==
[2025-08-14 13:58] LABS: Beta HCG Quantitative < 2.39 mIU/ML
== END 2025-08-14 13:17 | disposition home or self-care (01) ==
LOC: CHSLAB 13:18
PROVIDERS: PCP Nurse Practitioner Family; Visit Provider Student in an Organized Health Care Education/Training Program
DX: Z30.8 Encounter for other contraceptive management (principal)
CPT/HCPCS: 36415; 84702

== ENCOUNTER 2025-09-13 00:19 | Day surgery (SDC) | payer OTHER, SELFPAY ==
[2025-08-19 11:42] VITALS: BMI 38.9
--- OUTSIDE RECORDS SUMMARY | 2025-09-13 00:22 | XMS_ITS | Clinical Summary ---
Author Organization [facility] Address [address] [place] [address] Phone Care Team Providers Care Commercial Baking Teacher Name Role Phone LuzmariaAura mujica Giancarlo RUVALCABA [...] Cervical Cancer Screening (CCS) 2008 HPV/Cotest 2008 Cologuard 2023 Colonoscopy 2023 Colorectal Cancer Screening 2023 Immunochemical Fecal Occult Blood 2023 Influenza Immunization (#1) 2025 SARS-COV-2 Immunization ( season) 2025 05/12/2021, 04/21/2021 Respiratory Syncytial Virus (RSV) Immunization [...] Narrative 01/29/2019 10:45 AM CDT - KESHIA DONALDG RIGHT UNILATERAL DIGITAL W [...] Comparison is made to exam dated: 12/29/2018 [facility]. BREAST TISSUE:There are scattered fibroglandular densities in [...] signed by: Tracy Aponte M.D. ll/:01/29/2019 08:54:16 Refinery Operator Gas Plant: Jojo ALEJO([place])(M), [facility] letter sent: Normal Exam Reading location: [facility] BI-RADS: 1 Negative Procedure Note Tracy Aponte [...] Comparison is made to exam dated: 12/29/2018 [facility]. BREAST TISSUE:There are scattered fibroglandular densities in [...] signed by: Tracy Aponte M.D. ll/:01/29/2019 08:54:16 Refinery Operator Gas Plant: Jojo ALEJO([place])(Xuan), [facility] letter sent: Normal Exam Reading location: [place] BI-RADS: 1 Negative Francisco Elida [facility] MAM[place] ORDER[place]LES Final Resul t from Last 3 Months or Most Recently Relevant to Health Maintenance Insurance [facility] Care Teams Commercial Baking Teacher Relationship Specialty Start Date End Date Aura Brown APRN [address] [place] [address] [place] [address] PCP - General Family Medicine 12/17/18
--- OUTSIDE RECORDS SUMMARY | 2025-09-13 00:22 | XMS_ITS | Data Portability ---
Author Organization [facility] [place] Address [address] [place] [address] Care Team Providers Care Extract Wringer Name Role Phone ARNOLDO GRANT Primary Care Provider Assessment Encounter Date Assessment Date Assessment LastModified by Organization Details LastModified Time 07/17/2022 07/17/2022 Annual gynecological exam performed. Patient will come back in a year unless there are new symptoms. Not available 07/17/2022 16:24:06 11/06/2023 11/06/2023 Annual gynecological exam performed. Patient will come back in a year unless there are new symptoms. [email or web address] Not available 11/06/2023 17:51:07 04/06/2025 04/06/2025 Annual gynecological exam performed. Patient will come back in a year unless there are new symptoms. [email or web address] Not available 04/06/2025 17:49:29 Plan of Treatment Reminders Order Date Submit Date Provider Last Modified By Organization Details Last Modified Time Details Appointments None recorded. Lab None recorded. Referral dermatolog ist referral - Evaluation for Hidradenit is Supprativa and genital wart removal Please contact this patient to schedule an appointmen t. Attached are the patients demographi cs and most recent office visit notes. If you have any questions, please contact me at [phone]. Thank you, Lizeth, Referral's 2021 022 CHRIS Ireland MD, [address] [place], [address], 3 05:01:31 Procedures colonoscop y screening (PROC) 2024 025 [facility], [address], [address], [place], [address], 5 18:35:36 Surgeries None recorded. Imaging MAMMO, screening, digital, bilateral [email or web address] (Imaging), [address] [place], [address], 5 10:15:25 MAMMO, screening, bilateral 2023 024 [email or web address] [facility], [address], [address], [place], [address], 4 17:31:35 Medication Orders Mirena 21 mcg/24 hr (up to 8 years) 52 mg intrauteri ne device 2024 025 [email or web address] Not available 5 17:42:17 Cleocin T 1 % solution 2021 022 OLYMPIA FIELDS [facility], [address] [place], [address], 2 16:48:04 Patient TargetsNo targets recorded. Patient InstructionsNo instructions recorded. Reason for Referral Facilities Director Referral for H idradenitis suppurativa Evaluation for Hidradenitis Supprativa and genital wart removal Evaluation for Hidradenitis Supprativa and genital wart removalPlease contact this patient to schedule an appointment.Attached are the patients demographics and most recent office visit notes.If you have any questions, please contact me at [phone].Thank you,Lizeth Referral's Referring Physician: Radha Urbina, TUBE TESTER, Encounter Date: 07/17/2022 Results Created Date Observation Date Name Description Value Unit Range Abnormal Flag Note LastModifiedBy Organization Detail LastModifiedTime 07/17/20 22 07/17/2022 IMAGE GUIDE D PAP AND HPV REGAR DLESS image guided Pap, HPV regardless of Pap result SEE RESULT S BELOW CASE REPOR T: Cytol ogy Gynec ologi cherelle Repor t Case: [id number] Autho jennifer wong Provi yony: Ariane king Ricki Colle cted: 07/17 1721 RIM BUSTER Order ing Locat ion: [place] Patho logy Recei kirk: 07/18 0807 First Scree n: [place] Purvis, CT Rescr een: Bernarda Banegas ret, CT Speci men: Screhaley almaraz Pap - Image d, Cervi x STATE MENT OF ADEQU ACY: Satis facto ry for evalu ation Trans forma tion zone compo nent absen t The absen ce of an endoc ervic al compo nent was confi rmed by an addit ional bon ner. FINAL DIAGN OSIS: Negat curry for [...] ion is recom savannah d, as clini aveyr warra nted. Not Available [facility] Infectious Disease [address] [place], [address], 07/23/2022 12:22:47 11/06/19 24 11/06/2023 IMAGE GUIDE D PAP AND HPV REGAR DLESS image guided Pap, HPV regardless of Pap result SEE RESULT S BELOW CASE REPOR T: Cytol ogy Gynec ologi cherelle Repor t Case: [id number] Autho jennifer g Provi yony: Ricki Hazel Colle cted: 11/06 1740 RIM BUSTER Order ing Locat ion: [place] Patho [place] Recei kirk: 11/07 0546 First Scree n: Mary Ellen Grullon Speci men: Scree rufina Pap - Image d, Cervi x STATE MENT OF ADEQU ACY: Satis facto ry for evalu ation Trans forma tion zone compo nent prese nt FINAL DIAGN OSIS: Negat curry for Intra epith elial Lesio n or Jolene zepeda (NIL) . Shayan mora nickolas d by Mary Ellen Grullon [...] is recom savannah d, as clini avery lawsed. Not Available [facility] (Lab) [address], [place], [address], 11/08/2023 14:38:28 12/03/19 24 12/03/2023 SURGI [facility]EREL[facility] PATHO LOGY surgical pathology SEE RESULT S BELOW CASE REPOR T: Surgi cherelle Patho logy Repor t Case: [id number] Autho jennifer wong Provi yony: Ricki Hazel Colle cted: 12/02 2517 RIM BUSTER Order ing Locat ion: [place] Patho [place]y Recei kirk: 12/03 0230 Patho logis t: Chance White MD Speci men: Vagin a, 2 SKIN LESIO N ON VAGIN A FINAL DIAGN OSIS: Vulva r lesio ns: -Foreign gn kerat osis, favor condy broderick. Elect wali loera by Chance White MD on 024 at 12:51 PM ----- ----- ----- ----- ----- ----- ----- ----- ----- ----- ----- ----- ----- ----- ----- ----- ----- ---- CLINI CHERELLE INFOR MATHEIDI N: L98.9 MICRO SCOPI C DESCR IPTIO [...] measu ring 0.9 and 1.4 cm in [facility]. Each are secti oned to revea l a vuong- saldaña to brown , rubbe ry surfa ce. The speci men is submi tted entir frankie in A1-A2 . Gross ed by Shantelle jay Not Available [facility] (Lab) [address], [place], [address], 12/04/2023 13:55:27 Result Notes None recorded. Procedures Surgical History Date Name Laterality Status Provider Name and Address Organization Details Recorded Time 025 IUD Replacement completed DIONNE KELLY, [place] [address], [place], [address], [facility] 2025 17:35:13 024 hernia repair completed Olya Coleman [facility] 04/06/2025 17:57:01 024 Wart Topical Procedure completed Radha Urbina [facility] [address], [place], [address], [facility] 12/03/2023 18:05:31 024 Date of Last Pap Smear completed Isabella Samuels [facility] 12/03/2023 17:27:07 023 hernia repair completed Radha Urbina [facility] [address], [place], [address], [facility] 11/06/2023 18:06:15 Cholecystectomy completed Crystal Mckeon [facility] 07/17/2022 16:25:19 Imaging Results None recorded. Procedure Notes None recorded. Medical Equipment None Reported. Allergies No known drug allergies Medications Name Sig Start Date Stop Date Status Note LastModified by Organization Details LastModified Time cyclobenzap rine 10 mg tablet active Not Available Not Available Not Available Mirena 21 mcg/24 hr (up to 8 years) 52 mg intrauterin e device Take 1 device by intrauter ine route. 2024 active Not Available Not Available Not Avai lable atorvastati n 80 mg tablet active Not Available Not Available Not Available venlafaxine ER 75 mg capsule,ext ended release 24 hr 11/06 completed Not Available Not Available Not Available doxycycline hyclate 100 mg capsule Take 1 capsule every day by oral route. 2024 active Not Available Not Available Not Avai lable benzonatate 200 mg capsule TAKE 1 CAPSULE BY MOUTH 3 TIMES A DAY NEEDED 04/06 completed Not Available Not Available Not Available amlodipine 5 mg tablet active Not Available Not Available Not Available omeprazole 40 mg capsule,del ayed release active Not Available Not Available Not Available pravastatin 80 mg tablet 11/06 completed Not Available Not Available Not Available ropinirole 2 mg tablet active Not Available Not Available Not Available Effexor [...] Not Available Not Available Not Available Acid Admissions Manager Rn (omeprazole ) 20 mg capsule,del ayed release 11/06 completed Not Available Not Available Not Available Acid Admissions Manager Rn (omeprazole ) 11/06 completed Not Available Not Available Not Available Alive Women's Ultra Potency 11/06 completed Not Available Not Available Not Available Ozempic 0.25 mg or 0.5 mg (2 mg/3 mL) subcutaneou s pen injector active Not Available Not Available Not Available Vitals Date Recorded Body height Body mass index (BMI) Body weight Systolic And Diastolic Provider Name and Address Organization Details Last Updated DateTime 11/06/2023 157.48 cm 36.2 kg/m2 81170.29 g 147/95 mm[Hg] Isabella Samuels [facility] 11/06/2023 17:52:24 Date Recorded Systolic And Diastolic Provider Name and Address Organization Details Last Updated DateTime 12/03/2023 132/84 mm[Hg] Radha Urbina, [facility] [address], [place], [address], [facility] 12/03/2023 18:01:34 Date Recorded Body height Body mass index (BMI) Body weight Provider Name and Address Organization Details Last Updated DateTime 12/03/2023 157.48 cm 35.8 kg/m2 62661.1 g Isabella Samuels [facility] 12/03/2023 17:26:19 Date Recorded Body height Body mass index (BMI) Body weight Provider Name and Address Organization Details Last Updated DateTime 04/06/2025 157.48 cm 38.6 kg/m2 50541.99 g Olya [facility] 04/06/2025 17:55:18 Date Recorded Systolic And Diastolic Provider Name and Address Organization Details Last Updated DateTime 07/17/2022 128/80 mm[Hg] Radha Urbina, [facility] [address], [place], [address], [facility] 07/17/2022 16:49:21 Date Recorded Body height Body weight Provider Name and Address Organization Details Last Updated DateTime 07/17/2022 157.48 cm 04073.95 g Crystal Mckeon [facility] 07/17/2022 16:24:49 Date Recorded Body height Body mass index (BMI) Body weight Systolic And Diastolic Provider Name and Address Organization Details Last Updated DateTime 2025 157.48 cm 39.2 kg/m2 87836.2 g 152/90 mm[Hg] Olya [facility] 2025 17:12:04 Social History Question Answer Notes LastModified by Organizat ion Details LastModified Time Tobacco Smoking Status Current Every Day Smoker Crystal Mckeon [facility] 07/17/2022 16:26:50 Do You Have An Advance Directive? No [email or web address] Information n ot available 07/17/2022 How Many Years Have You Consumed Alcohol? 20 Information not available 07/17/2022 Are You Blind Or Do You Have Difficulty Seeing? No Information n ot available 07/17/2022 What Is Your Level Of Caffeine Consumption? Moderate Information not available 07/17/2022 How Much Tobacco Do You Chew? None Information not available 07/17/2022 In The 14 Days Before Symptom Onset, Have You Had Close Contact With A Laboratory-confirm ed COVID-19 While That Case Was Ill? No Information n ot available 07/17/2022 In The 14 Days Before [...] Of Diet Are You Following? REGULAR Information n ot available 07/17/2022 What Is The Highest Grade Or Level Of School You Have Completed Or The Highest Degree You Have Received? [id number] Information not available 07/17/2022 Are There Any [...] PPD Information not available 07/17/2022 Do You Use Sunscreen Routinely? Yes Information not available 07/17/2022 How Many Years Have You Smoked Tobacco? 30 Information not available 07/17/2022 Have You Used IV Drugs? No Information not available 07/17/2022 Do You Have Difficulty Walking Or Climbing Stairs? No Information not available 07/17/2022 Sex: Unknown Functional Status Question Answer Note LastModified by Organizat ion Details LastModified Time Do you use any illicit or recreational drugs? No Information not available 07/17/2022 What is your level of alcohol consumption? Occasional Information not available 07/17/2022 Are you able to walk independently without assistance or assistive devices? YESWOREST Information not available 07/17/2022 Are you able to care for yourself independently? 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 No Information not available 07/17/2022 What is your exercise level? Occasional Information not available 07/17/2022 Mental Status Question Answer Note LastModified by Organization D etails LastModified Time Do you feel stressed (tense, restless, nervous, or anxious, or unable to sleep at night)? [id number] Information not available 07/17/2022 Family History Relationship Description Onset Age of this Age Resolved Age Notes LastModified by Organization Details LastModified Time Paternal Grandmother Malignant neoplasm of uterus [email or web address] Not available 2024 18:09:41 Father Disorder of lung Not available 2021 16:25:02 Father Anemia Not available 16:25:02 Father Hypercholest erolemia Not available 2021 16:25:02 Father Hypertensive disorder Not available 2021 16:25:02 Father Primary malignant neoplasm of stomach [email or web address] Not available 07/31 16:57:23 Mother Anxiety disorder Not available 2021 16:25:02 [...] Medical History Condition Response Anxiety Disorder Y High Cholesterol Y Depression/ depression Y Acid Reflux (GERD) Y Cancer Y Polycystic ovary syndrome Y Hypertension Y Dermatologic Disorders Y Gynecological History Statement/Question Response Abnormal Pap Y Date of Last Mammogram Date of LMP N Was last menstrual period normal N STIs/STDs Yes HPV Vaccine N Current Control Method IUD [...] Diagnosis SNOMED-CT Code Diagnosis ICD10 Code Diagnosis IMO Codes Diagnosis Note [id number] [facility] [address] [address] 07/17/2022 16:03:54 07/18/2022 12:58:44 Gynecologic examination 76052749 Z01.419 Suggested Calcium with Vitamin D 1200-1500m g daily. Patient advised to get an annual flu shot in the fall and she could obtain at [facility] or [facility] care clinic. Also to obtain TDap vaccinatio n [...] Routine Labs PCPMammo ordered Hidradenit is suppurativa 63775180 L73.2 B07.9 Recommende d Derm consult for wart removal/HS management . [id number] Radha Urbina [facility] [address] [address] 11/06/2023 17:37:02 11/07/2023 13:56:15 Gynecologic examination 61882662 Z01.419 Z11.51 Suggested Calcium with Vitamin D 1200-1500m g daily. Patient advised to get an annual flu shot in the fall and she could obtain at [facility] or [facility] clinic. Also to obtain TDap vaccinatio n [...] naRoutine Labs PCPMammo ordered Screening mammography 24 158958 Z12.31 Genital warts 961668640 A63.0 Today we discussed removal of two genital warts that are >1cm and are in areas that are bothersome .Will schedule appt Elevated blood-pressure reading without diagnosis of hypertension 232436657 R03.0 Check in with PCP for BPNo sx'sED precaution s if sx's [id number] Radha Urbina [facility] [address] [address] 12/03/2023 17:13:58 12/05/2023 12:11:31 Genital warts 155112011 A63.0 See procedure notesPost- procedure instructio celestina reviewedWe t wipes/warm wash cloth after bowel movement.W jody normally but no scrubbing the area.If any issues or signs of infection please contact us for abx/appt.U jojoalexa marty verbalized . [id number] Rodrigo Bustamante MD [place] [address] [address] 04/06/2025 17:46:24 04/07/2025 01:18:45 Well woman health examination 628490683 Z01.419 900691 Annual gynecologi cherelle exam performed. Patient will come back in a year unless there are new symptoms. Suggest Calcium with Vitamin D if not eating in diet. Patient advised to get annual flu shot. Recommend yearly physicals and perform monthly breast exams. Genetic testing is available for patients with family history of cancer. Engage in safe sexual practices, use condoms. Encouraged to have daily exercise. Avoid tobacco and illicit drugs, moderation of alcohol. If BMI greater than 25 dietary consult advised. If you have any questions please call or email. mammogram- order given, pt to schedule colon cancer screening - GI referral for screening colonoscop y at [facility] DEXA scan- n/a Pap smear- UTD (2023 - WN), will repeat in 2026 per ASCCP guidelines laboratory evaluation - PCP STI testing - declined A Mirena IUD prevents for up to 8 years, and also helps with heavy periods for up to 5 years in women who choose an IUD for control. Discussed that Mirena IUD expires 08/02/2025. Patient to schedule removal and replacemen t. Screening mammography 24 866080 Z12.31 [id number] Hidradenit is suppurativa 88180068 L73.2 878 Discussed treatment options for hidradenit is suppurativ a. Discussed topical antibiotic s vs. systemic. Patient has tried clindamyci n lotion in the past with no relief.Dis cussed doxycyclin e 100 mg PO once daily. Patient to consider.R ecommended washing affected areas with antibacter ial soap regularly. Recommende d consult with dermatolog ist as well.Discu ssed importance of weight loss and avoidance of smoking to help in the management of HS. Screening for malignant neoplasm of colon 565911441 Z12.11 [id number] DIONNE KELLY NP [place] [address] [address] 2025 16:57:14 2025 17:39:40 Contraception status 827576907 Z30.433 161394 She has been counseled on all of the r/b/a of placement of an intrauteri ne device that include but are not limited to uterine perforatio n, injury to cervix, vagina, bladder, and bowel.Risk s of bleeding due to injury or increased irregular bleeding due to progestin effect of the device. Risks of infection would be increased within the first 21 days of placement with concomitan t cervicitis . She understand s that the device will need to be removed in this instance due to increased risk of Pelvic inflammato ry disease. Patient is aware she is at higher risk for STD and if contracted she could lose her fertility. Pt is aware that if occurs that she should contact office immediatel y to rule out ectopic which could be life threatenin g. IUD will also need to be removed and this could cause miscarriag e. Patient also informed that in the event her strings are absent or embedded at the time of removal she may need to have the IUD surgically removed. She was informed of the above and properly consented. Mirena IUD removed and replaced w/o complicati on. Patient should return to office in 4-6 weeks to check for string placement. Patient to expect irregular bleeding but should be seen in the ED if bleeding increases to soaking a pad an hour for at least 2 hours. She verbalized understand ing. Health Concerns Section Related Observation LastModified by Organization Detai ls LastModified Time None Recorded Concern Status LastModified by Organization Details LastModified Time None Recorded Advance Directives Directive N: Payers Insurance Date Sequence Insurance Name Policy Number Policy Zamora Covered Member ID Zamora Member ID Guarantor Name 08/15/2025 1 [facility] [id number] Malu De La Rosa [id number] Malu De La Rosa 08/15/2025 1 [facility] [id number] Malu De La Rosa [id number] Malu De La Rosa 08/15/2025 1 [facility] [id number] Malu De La Rosa [id number] Malu De La Rosa Notes Date Note Type Note Provider Name and Address Organization Details Recorded Time 07/17/20 22 text/ht ml Annual GYNReported by PatientGenitourinary symptomsFor vulva, patient reportsmultiple sores (boils vulva/inner thighs/other.). For menstrual cycle, patient reportsnormal menses. For urinary symptoms, patient reportsno hematuriaandno incontinence. For vagina, patient reportsnormal vaginal discharge.Breast symptomsFor breast, patient reportsno breast pain,no breast lump, andno nipple discharge.ContraceptionFor current contraception, patient reportssatisfied with current contraceptionandintrauterine device (iud).Endocrine symptomsFor sexual complaints, patient reportsno sexual complaints,no pain during intercourse, andnormal libido. For menopausal symptoms, patient reportsno menopausal symptomsandnormal vaginal lubrication.Psychological symptomsFor psychological symptoms, patient reportsno depression,no anxiety, andno pmdd.Preventative measuresFor preventive measures, patient reportsencourage self breast examination,encourage regular exercise,encourage no tobacco use,encourage regular mammograms starting age 40, andfollowed with yearly pap smears. Radha Urbina, [place] [address], [place], [address], [facility] 07/29/2022 20:03:39 11/06/19 24 text/ht ml Annual GYNReported by PatientGenitourinary symptomsFor menstrual cycle, patient reportsnormal menses. For urinary symptoms, patient reportsno hematuriaandno incontinence. For vulva, patient reportsno genital lesion. For vagina, patient reportsnormal vaginal discharge.Breast symptomsFor breast, patient reportsno breast pain,no breast lump, andno nipple discharge.ContraceptionFor current contraception, patient reportssatisfied with current contraceptionandintrauterine device (iud).Endocrine symptomsFor sexual complaints, patient reportsno sexual complaints,no pain during intercourse, andnormal libido. For menopausal symptoms, patient reportsno menopausal symptomsandnormal vaginal lubrication.Psychological symptomsFor psychological symptoms, patient reportsno depression,no anxiety, andno pmdd.Preventative measuresFor preventive measures, patient reportsencourage self breast examination,encourage regular exercise,encourage no tobacco use,encourage regular mammograms starting age 40,followed with yearly pap smears,needs to schedule mammogram, andneeds to schedule colonoscopy. Radha Urbina, [facility] [address], [place], [address], [facility] 11/07/2023 13:30:13 12/03/19 24 text/ht ml ROS as noted in the HPI Here today for lesion removal of genital warts. Radha Urbina, [facility] [address], [place], [address], [facility] 12/05/2023 11:56:07 04/06/20 25 text/ht ml Annual GYNReported by PatientGenitourinary symptomsFor urinary symptoms, patient reportsno hematuriaandno incontinence. For vulva, patient reportsno genital lesion. For vagina, patient reportsnormal vaginal discharge. For menstrual cycle, (no cycles with iud).Breast symptomsFor breast, patient reportsno breast pain,no breast lump, andno nipple discharge.ContraceptionFor current contraception, patient reportssatisfied with current contraceptionandintrauterine device (iud).Endocrine symptomsFor sexual complaints, patient reportsno sexual complaints,no pain during intercourse, andnormal libido. For menopausal symptoms, patient reportsno menopausal symptomsandnormal vaginal lubrication.Psychological symptomsFor psychological symptoms, patient reportsno depression,no anxiety, andno pmdd.Preventative measuresFor preventive measures, patient reportsencourage self breast examination,encourage regular exercise,encourage no tobacco use, andencourage regular mammograms starting age 40. Patient presents for annual well woman exam.Reports boils in groin that come and go. 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 Olya aleman, [facility] 04/06/2025 18:39:40 08/16/20 25 text/ht ml Patient presents for Mirena IUD removal and replacement.Informed consent obtained.[facility] negative 08/14/25. Olya Coleman [facility], [facility] 2025 17:41:56 OBGyn Episode No OBEpisode recorded.
--- OUTSIDE RECORDS SUMMARY | 2025-09-13 00:22 | XMS_ITS | Clinical Summary ---
Author Organization [facility] Address [address] [place] [address] Care Team Providers Care Editor City Name Role Phone Mairlyn Castañeda NP Primary Care Provider [phone] Allergies No known active allergies Medications amLODIPine [...] (two) times a day 60 tablet 4 Active polyethylene glycol (MIRALAX) 17 gram/dose bulk [...] following Pain well controlled with Epidural and ETL PROGRAMMER 05/19 pain controlled, transition ETL PROGRAMMER to multimodal oral regimen, Pain team to [...] POD 2. ARBF. 05/18 barrier to discharge epidural/media production manager, NPO 05/19 barrier to discharge: epidural, PO tolerance; ADD tomorrow 05/20 Patient is medically stable for discharge, SW/CM updated. Depression 05/14/2024 Assessment & Plan (05/20/2024 11:14 AM CDT): Holding home sertraline 05/19 resumed --- f/u with previously established provider for ongoing management Ventral hernia without obstruction or gangrene 0 03/24/2024 Assessment & Plan (05/20/2024 11:18 AM CDT): [facility] Open repair incarcerated VHR, excision of denuded [...] Midline closed with dermabond. Pain controlled with epidural/ETL PROGRAMMER. Plan: ARBF. UOOB. IS. 05/17: POD3 NGT [...] on file Legal Sex Female 9:16 PM APPLICATION ENGINEER Gender Identity Female 03/21/2024 7:26 PM CDT [...] 10:03 AM CDT Height 157.5 cm (5' 2) 07/10/2024 10:03 AM CDT Body Mass Index 38.48 07/10/2024 10:03 AM CDT Plan of Treatment Health Maintenance Due Date Last Done Comments Cervical Cancer Screening 1978 Colon Cancer Screening-Colonoscopy 1978 Depression Screening 1978 Hepatitis C Screening 1978 DTaP/Tdap/Td Vaccine (1 - Tdap) 1989 Hepatitis B Screening 1996 Regular Well Visit/Exam 18-64 1996 Breast Cancer Screening-Mammogram 12/30/2019 12/29/2018 Covid-19 Vaccine (3 - 2024-2 6 season) 2025 05/12/2021, 04/21/2021 Influenza Vaccine (#1) 2025 Pneumococcal vaccine <65 Aged Out No longer eligible based on patient's age to complete this topic Medical Devices Implanted Type Area Store Clerk Checker Device Identifier Shelf Expiration Date Model / Serial / Lot [employer]/C R Bard [id number] Monofilament Soft Lightweight Low Profile Square - [id number] Implanted:Qty: 1 on 05/13/2024 by Rolando Del Cid MD at [facility] Mesh N/A: Abdomen [employer] R Bard [id number] 08/27/2028 [id number] / / [id number] Insurance [facility] CHOICE PLUS [facility] CHOICE PLUS Advance Directives For more information, please contact: [phone] * Full Code (Latest Code Status on File) Date Activated Date Inactivated Comments 05/13/2024 3:42 PM 05/20/2024 5:48 PM Care Teams Editor City Relationship Specialty Start Date End Date Marilyn Castañeda NP [address] [place] [address] PCP - General Nurse Practitioner 02/12/24
--- OUTSIDE RECORDS SUMMARY | 2025-09-13 00:23 | XMS_ITS | Continuity of Care Document ---
Author Organization [facility] [place] Address [address] [place] [address] Care Team Providers Care Chemical Handler Name Role Phone ARNOLDO GRANT Primary Care Provider [phone] Assessment No assessment recorded. Plan of Treatment Reminders Order Date Submit Date Provider Last Modified By Organization Details Last Modified Time Details Appointments None recorded. Lab None recorded. Referral None recorded. Procedures None recorded. Surgeries None recorded. Imaging None recorded. Medication Orders Mirena 21 mcg/24 hr (up to 8 years) 52 mg intrauterin e device 2024 025 [email or web address] Not available 17:42:17 Patient TargetsNo targets recorded. Patient InstructionsNo instructions recorded. Reason for Referral None Reported. Results Created Date Observation Date Name Description Value Unit Range Abnormal Flag Note LastModifiedBy Organization Detail LastModifiedTime Result Notes None recorded. Procedures Surgical History Date Name Laterality Status Provider Name and Address Organization Details Recorded Time 025 IUD Replacement completed DIONNE KELLY NP [address], [place], [address], [facility] 2025 17:35:13 024 hernia repair completed Olya Coleman [facility] 04/06/2025 17:57:01 024 Wart Topical Procedure completed Radha Urbina SAMPSON- [address], [place], [address], [facility] 12/03/2023 18:05:31 024 Date of Last Pap Smear completed Isabella Samuels [facility] 12/03/2023 17:27:07 023 hernia repair completed Radha Urbina, [facility]- [address], [place], [address], [place] [facility] 11/06/2023 18:06:15 Cholecystectomy completed Crystal Mckeon [facility] 07/17/2022 16:25:19 Imaging Results None recorded. [...] TOPICAL ROUTE 2 TIMES PER WEEK @ 2021 active Not Available Not Available Not Avai lable sertraline 11/06 completed Not Available Not Available Not Available amlodipine 11/06 completed Not Available Not Available Not Available Baby Aspirin active Not Available Not Available Not Available Acid Dry Sand Molder (omeprazole ) 20 mg capsule,del ayed release 11/06 completed Not Available Not Available Not Available Acid Dry Sand Molder (omeprazole ) 11/06 completed Not Available Not [...] Updated DateTime 2025 157.48 cm 39.2 kg/m2 35840.2 g 152/90 mm[Hg] Olya Coleman [facility] 2025 17:12:04 Social History Question Answer Notes LastModified by Organizat ion Details LastModified Time Tobacco Smoking Status Current Every Day [facility] 07/17/2022 16:26:50 Do You Have An Advance Directive? No Information n ot available 07/17/2022 How Many [...] Or The Highest Degree You Have Received? [id number] Information not available 07/17/2022 Are There Any [...] anxious, or unable to sleep at night)? [id number] Information not available 07/17/2022 Family History Relationship [...] ICD10 Code Diagnosis IMO Codes Diagnosis Note [id number] DIONNE KELLY NP [place] [address] [address] 2025 16:57:14 2025 17:39:40 Contraception status [id number] [id number] She has been counseled on all of [...] by Organization Details LastModified Time None Recorded Payers Encounter Date Sequence Insurance Name Policy Number Policy Zamora Covered Member ID Zamora Member ID Guarantor Name 2025 1 [facility] [id number] Malu De La Rosa [id number] Malu Rj Notes Date Note Type Note Provider Name and Address Organization Details Recorded Time 2025 text/html Patient presents for Mirena IUD removal and replacement.Inf ormed consent obtained.cg negative 08/14/25. Olya Coleman [facility], [facility] 2025 17:41:56 OBGyn Episode No OBEpisode recorded.
[2025-09-13 07:31] VITALS: BP 144/84; PULSE 83; RESP 18; TEMP 36.2; O2SAT 98
[2025-09-13] MEDS: LACTATED RINGERS 1,000 ML 150 ML IV CONT (07:44)
[2025-09-13 08:01] LABS: BEDSIDEPREGUCG Negative (Negative)
--- NOTE | 2025-09-13 08:13 | WPDANESEPPF ---
Anes - Initial Pre Proc Eval Procedure: Operation Date: 09/13/25 08:30 Proposed Procedures p Screening Colonoscopy - Jesus Bowie DO Date/Time: 09/13/25 08:13 Surgeon: Jesus Bowie DO Pre Op Diagnosis: screening for malignant neoplasm of colon Patient Data Age: 45 Gender: F Height: 1.57 m Weight: 96.3 kg Last Vital Signs Temp 97.1 F L 09/13/25 07:31 Pulse 83 09/13/25 07:31 Resp 18 09/13/25 07:31 BP 144/84 H 09/13/25 07:31 Pulse Ox 98 09/13/25 07:31 O2 Del Method Room Air 09/13/25 07:31 Allergies Allergy/AdvReac Type Severity Reaction Status Date / Time No Known Allergies Allergy Verified 09/13/25 07:26 Home Medications ?Medication ?Instructions ?Recorded ?Confirmed ?Type lisinopril 20 See Rx Instructions .Route 10/23/24 09/13/25 Rx mg-hydrochlorothiazide 25 mg tablet .COMPLEX #90 tabs omeprazole 40 mg capsule,delayed See Rx Instructions .Route 10/26/24 09/13/25 Rx release .COMPLEX #90 caps sertraline 50 mg tablet See Rx Instructions .Route 10/26/24 09/13/25 Rx .COMPLEX #90 tabs amlodipine 5 mg tablet See Rx Instructions .Route 04/15/25 09/13/25 Rx .COMPLEX #90 tabs atorvastatin 80 mg tablet See Rx Instructions .Route 08/03/25 09/13/25 Rx .COMPLEX #90 tabs ropinirole 2 mg tablet 2 mg PO QHS #30 tabs 08/13/25 09/13/25 Rx Laboratory Tests 09/13/25 07:37 POC Urine HCG, Qual Negative (Negative) Patient hx anesthesia problems: none Family hx anesthesia problems: none Results Review: All pre-operative results and documents have been reviewed as part of the pre-operative evaluation. [facility] Past Medical History Medical History Anxiety Hypertension Obstructive sleep apnea Surgical History Surgical History H/O ventral hernia repair Repair 2 cm ventral hernia, small bowel resection with anastomosis 02/03/23 History of foot surgery Removal bone spur. History of cholecystectomy History of tonsillectomy Family History Family History Mother Diabetes mellitus Anxiety Depression Arthritis Grandparent Cancer Father Stomach cancer Social History Social History Social History: Surrogate medical decision maker: Cecilio Martinez, significant other. Code status: Full code. Smoking status: Current some day smoker Tobacco type: cigarettes Alcohol intake: current Drinks per week: 8 Substance use: never Lack of Transportation: No Lack of Food: Never True Current Housing: I Have Housing Concerned About Future Housing: No Difficulty Paying Gas/Electric Bills: No Difficulty Paying for Meds: No Currently Unemployed: No Education: Trade/Vocational Certificate Difficulty w/ Childcare or Family Care: No Living arrangements: with family Occupation/Education: occupation Additional occupation/education comments: [employer] Spiritual care concerns: No Anes - Eval Final PreProcedure Day of Procedure 09/13/25 08:13 Patient weight: obese Lungs: normal air movement Airway: Mallampati scale class III Neurological: alert and oriented Last oral intake: >/= 8 hours ASA classification: III Emergent: no Anesthetic plan: proceed Anesthesia type and monitoring: general GIVS and standard monitoring Results Review: All pre-operative results and documents have been reviewed as part of the pre-operative evaluation. HTN, hyperlipidemia, WILBERTO on CPAP, active without cp or sob. Informed Consent: The patient's anesthetic plan and its attendant risks and benefits were discussed with the patient/family/POA. Questions were solicited and answers provided to the satisfaction of the patient/family/POA.
--- NOTE | 2025-09-13 08:27 | P.HP_ITS ---
H&P: HPI History of Present Illness Date/Time: 09/13/25 08:27 Chief Complaint: Screening for colorectal cancer Narrative: This is a 45-year-old woman who presents for her 1st colonoscopy. She denies any hematochezia or melena. She denies any family history of colon cancer. Review of Systems Review of Systems: All systems reviewed & are unremarkable except as noted in HPI and below Constitutional: Constitutional: Denies chills, Denies fever(s), Denies headache(s) and Denies weight loss Eyes: Eyes: Denies change in vision ENT: Denies dizziness, Denies headache(s), Denies neck mass and Denies throat swelling Cardiovascular: Cardiovascular: Denies chest pain, Denies lightheadedness and Denies dyspnea Respiratory: Respiratory: Denies cough, Denies dyspnea and Denies wheezing Gastrointestinal: Gastrointestinal: Denies abdominal pain, Denies change in bowel habits, Denies nausea and Denies vomiting Genitourinary: Genitourinary: Denies hematuria and Denies dysuria Musculoskeletal: Musculoskeletal: Reports as per HPI Integumentary/Breasts: Skin/Breast: Reports as per HPI Neurologic: Denies dizziness and Denies headache(s) Allergic/Immunologic: Allergic/Immunologic: Denies throat swelling and Denies wheezing PMFSH Past Medical History Medical History Anxiety Hypertension Obstructive sleep apnea Surgical History Surgical History H/O ventral hernia repair Repair 2 cm ventral hernia, small bowel resection with anastomosis 02/03/23 History of foot surgery Removal bone spur. History of cholecystectomy History of tonsillectomy Family History Family History Mother Diabetes mellitus Anxiety Depression Arthritis Grandparent Cancer Father Stomach cancer Social History Social History Social History: Surrogate medical decision maker: Cecilio Martinez significant other. Code status: Full code. Smoking status: Current some day smoker Tobacco type: cigarettes Alcohol intake: current Drinks per week: 8 Substance use: never Lack of Transportation: No Lack of Food: Never True Current Housing: I Have Housing Concerned About Future Housing: No Difficulty Paying Gas/Electric Bills: No Difficulty Paying for Meds: No Currently Unemployed: No Education: Trade/Vocational Certificate Difficulty w/ Childcare or Family Care: No Living arrangements: with family Occupation/Education: occupation Additional occupation/education comments: [employer] Spiritual care concerns: No Meds Home Medications and Allergies Home Medications ?Medication ?Instructions ?Recorded ?Confirmed ?Type lisinopril 20 See Rx Instructions .Route 0 10/23/24 09/13/25 Rx mg-hydrochlorothiazide 25 mg tablet .COMPLEX #90 tabs omeprazole 40 mg capsule,delayed See Rx Instructions . Route 10/26/24 09/13/25 Rx release .COMPLEX #90 caps sertraline 50 mg tablet See Rx Instructions .Route 0 10/26/24 09/13/25 Rx .COMPLEX #90 tabs amlodipine 5 mg tablet See Rx Instructions .Route 0 04/15/25 09/13/25 Rx .COMPLEX #90 tabs atorvastatin 80 mg tablet See Rx Instructions .Route 1 10/03/24 09/13/25 Rx .COMPLEX #90 tabs ropinirole 2 mg tablet 2 mg PO QHS #30 tabs 08/13/2 5 09/13/25 Rx Allergies Allergy/AdvReac Type Severity Reaction Status Date / Time No Known Allergies Allergy Verified 09/13/25 07:26 Vital Signs Vital Signs - 24 hr 09/13/25 07:31 Temperature 97.1 F L Pulse Rate 83 Respiratory Rate 18 Blood Pressure 144/84 H Pulse Oximetry 98 Oxygen Delivery Room Air Exam Const: General: no acute distress and alert Orientation/consciousness: patient oriented x3 HENMT: Head: normocephalic and atraumatic Ears: hearing grossly normal bilaterally Face/Nose/Sinus: Normal nares present Mouth: Yes Normal oral and palatal mucosa present Eyes: Periorbital: periorbital findings normal Sclera: sclerae normal EOM: EOMs intact bilaterally Neck: Neck: normal visual inspection, no lymphadenopathy and trachea midline Chest: Chest palpation & inspection: normal inspection of the chest Resp: Effort & Inspection: normal respiratory effort Auscultation: clear to auscultation bilaterally Cardio: Jugular venous distension: no JVD Rate: regular rate Rhythm: regular rhythm Heart sounds: S1 normal heart sound present and S2 normal heart sound present Peripheral pulses: Peripheral pulses 2+ throughout GI: Inspection: normal to inspection GI Palp: Yes Soft to palpation, No Tenderness to palpation present (GI), No Guarding due to palpation present (GI) and No Rebound tenderness present Percussion: Yes normal to percussion Auscultation: normal bowel sounds : General: Yes no CVA tenderness Back/Spine/Pelvis: Back: no CVA tenderness Neuro: General: patient oriented x3, no focal motor deficits and CN's II-XI intact bilaterally Cognition (Neuro): normal cognition Speech: normal speech Motor exam (neuro): 5/5 motor strength present throughout Extrem: General: capillary refill normal and no clubbing, cyanosis or edema Assessment and Plan Assessment and plan (1) Screening for colorectal cancer: Code(s): Z12.11 - Encounter for screening for malignant neoplasm of colon; Z12.12 - Encounter for screening for malignant neoplasm of rectum Status: Acute Assessment and Plan: I have recommended colonoscopy. I have discussed the procedure, risks, benefits, and alternatives. Questions were answered. Patient is agreeable to proceed.
--- NOTE | 2025-09-13 08:56 | S_PTH ---
PATIENT: Malu Martinez LOC: [facility] Ramirez#:[id number] AGE/SX: 45/F ROOM: RE09/13/[address]: Jesus Bowie DO : 1980 BED: DIS: 09/13/2025 SPEC #: [id number] RECD: 09/13/25 10:06 STATUS: JOSTIN REQ #: [id number] DIMITRIOS: 09/13/25 08:[address]: Jesus Bowie DEPT: [facility] Surgical RECD BY: Jazz Bhat ENTERED: 09/13/25 10:07 SP TYPE: Surgical OTHR DR: Marilyn Castañeda, GLOVE TAGGER Tissues: A - Colon Polypectomy Procedures: Hematoxylin and Eosin Stain Gross and Microscopic Level 4
[2025-09-13 08:57] VITALS: BP 111/66; PULSE 78; RESP 17; O2SAT 96
[2025-09-13 09:07] VITALS: BP 113/71; PULSE 78; RESP 18; O2SAT 100
[2025-09-13 09:17] VITALS: BP 120/78; PULSE 71; RESP 19; O2SAT 100
== END 2025-09-13 09:25 | disposition home or self-care (01) ==
PROVIDERS: Anesthesiology; PCP Nurse Practitioner Family; Visit Provider Surgery
PROC: 0DJD8ZZ Inspection of Lower Intestinal Tract, Via Natural or Artificial Opening Endoscopic (ICD-10-PCS; CPT 45378; principal; 2025-09-13 08:30)
DX: Z12.11 Encounter for screening for malignant neoplasm of colon (principal); K62.1 Rectal polyp; E78.5 Hyperlipidemia, unspecified; I10 Essential (primary) hypertension; F41.9 Anxiety disorder, unspecified; G47.33 Obstructive sleep apnea (adult) (pediatric); F17.210 Nicotine dependence, cigarettes, uncomplicated; E66.9 Obesity, unspecified; Z68.38 Body mass index [BMI] 38.0-38.9, adult; Z99.89 Dependence on other enabling machines and devices; Z98.890 Other specified postprocedural states; Z90.49 Acquired absence of other specified parts of digestive tract; Z80.0 Family history of malignant neoplasm of digestive organs
CPT/HCPCS: 45380; 88305; J2003; J2704; J7120